=== PATIENT | female | born 1985 | race African-American/Black ===

== ENCOUNTER 2017-11-30 08:58 | Emergency (ER) | payer SELFPAY ==
--- NOTE | 2017-11-30 10:07 | EDPHYS ---
Physician Documentation [facility] Name: Aneta Wang Age: 32 yrs Sex: Female : 1985 Arrival Date: 11/30/2017 Time: 09:01 Bed 19 Private MD: ED Physician Vince Arboleda HPI: 11/30 09:40 This 32 yrs old Black Female presents to ER via Ambulatory with complaints of Sore jr8 Throat, Cough. 09:40 Onset: The symptoms/episode began/occurred acutely, 1 week(s) ago. Severity of jr8 symptoms: At their worst the symptoms were mild, in the emergency department the symptoms are unchanged. Associated signs and symptoms: Pertinent positives: chest pain, cough. The patient has not experienced similar symptoms in the past. The patient has not recently seen a physician. PNP: 09:14 LMP 11/22/2017 iw Historical: - Allergies: 09:14 PENICILLINS; iw - Home Meds: 09:14 None [Active]; iw - PMHx: 09:14 Kidney stones; iw - PSHx: 09:14 Tubal ligation; iw - Immunization history:: Adult Immunizations up to date. - Social history:: Smoking status: Patient/guardian denies using tobacco. ROS: 09:40 Eyes: Negative for injury, pain, redness, and discharge, Neck: Negative for injury, jr8 pain, and swelling, Abdomen/GI: Negative for abdominal pain, nausea, vomiting, diarrhea, and constipation, Back: Negative for injury and pain, MS/Extremity: Negative for injury and deformity, Skin: Negative for injury, rash, and discoloration, Neuro: Negative for headache, weakness, numbness, tingling, and seizure. 09:40 Constitutional: Positive for fever, malaise. 09:40 ENT: Positive for sore throat, Negative for drainage from ear(s), ear pain, nasal discharge, rhinorrhea, sinus congestion, sinus pain, difficulty swallowing, difficulty handling secretions, hoarseness. 09:40 Cardiovascular: Positive for chest pain, with cough, Negative for edema, orthopnea, palpitations, paroxysmal nocturnal dyspnea. 09:40 Respiratory: Positive for cough, Negative for dyspnea on exertion, shortness of breath, sputum production, wheezing. Exam: 09:40 Head/Face: Normocephalic, atraumatic. Eyes: Pupils equal round and reactive to light, jr8 extra-ocular motions intact. Lids and lashes normal. Conjunctiva and sclera are non-icteric and not injected. Cornea within normal limits. Periorbital areas with no swelling, redness, or edema. ENT: Nares patent. No nasal discharge, no septal abnormalities noted. Tympanic membranes are normal and external auditory canals are clear. Oropharynx with mild redness. No swelling, or masses, exudates, or evidence of obstruction, uvula midline. Mucous membranes moist. Neck: Trachea midline, no thyromegaly or masses palpated, and no cervical lymphadenopathy. Supple, full range of motion without nuchal rigidity, or vertebral point tenderness. No Meningismus. Cardiovascular: Regular rate and rhythm with a normal S1 and S2. No gallops, murmurs, or rubs. Normal PMI, no JVD. No pulse deficits. Respiratory: Lungs have equal breath sounds bilaterally, clear to auscultation and percussion. No rales, rhonchi or wheezes noted. No increased work of breathing, no retractions or nasal flaring. Abdomen/GI: Soft, non-tender, with normal bowel sounds. No distension or tympany. No guarding or rebound. No evidence of tenderness throughout. Back: No spinal tenderness. No costovertebral tenderness. Full range of motion. Skin: Warm, dry with normal turgor. Normal color with no rashes, no lesions, and no evidence of cellulitis. MS/ Extremity: Pulses equal, no cyanosis. Neurovascular intact. Full, normal range of motion. Neuro: Awake and alert, GCS 15, oriented to person, place, time, and situation. Cranial nerves II-XII grossly intact. Motor strength 5/5 in all extremities. Sensory grossly intact. Cerebellar exam normal. Normal gait. Vital Signs: 09:08 BP 112 / 80; Pulse 97; Resp 17; Temp 99.5(O); Pulse Ox 98% ; Weight 68.04 kg; Height 5 iw ft. 3 in. (160.02 cm); Pain 8/10; 09:58 BP 112 / 85; Pulse 84; Resp 16; Pulse Ox 100% on R/A; mh5 09:08 Body Mass Index 26.57 (68.04 kg, 160.02 cm) iw MDM: 09:09 Patient medically screened. jr8 10:04 Data reviewed: vital signs, nurses notes, lab test result(s), radiologic studies, plain jr8 films, and as a result, I will discharge patient. Data interpreted: Pulse oximetry: on room air is 100 %. Interpretation: normal. Counseling: I had a detailed discussion with the patient and/or guardian regarding: the historical points, exam findings, and any diagnostic results supporting the discharge/admit diagnosis, lab results, radiology results, the need for outpatient follow up, a family practitioner, to return to the emergency department if symptoms worsen or persist or if there are any questions or concerns that arise at home. 11/30 09:25 Order name: Influenza Screen (a \T\ B); Complete Time: 10: jr8 11/30 09:25 Order name: Strep; Complete Time: : jr8 11/30 09:25 Order name: XRAY Chest (1 view); Complete Time: 16:00 jr8 11/30 10:00 Order name: Throat Culture EDMS Administered Medications: No medications were administered Disposition: 11:15 Co-signature as Attending Physician, Vince Arboleda MD. rn Disposition: 11/30/17 10:06 Discharged to Home. Impression: Acute upper respiratory infection, unspecified. - Condition is Stable. - Discharge Instructions: Upper Respiratory Infection, Adult. - Prescriptions for Prednisone 20 mg Oral Tablet - take 1 tablet by ORAL route once daily for 5 days; 5 tablet. Tessalon Perles 100 mg Oral Capsule - take 1 capsule by ORAL route every 8 hours As needed; 15 capsule. Albuterol Sulfate 90 mcg/actuation - inhale 1-2 puff by INHALATION route every 4-6 hours; 1 Inhaler. - Medication Reconciliation Form, Thank You Letter, Antibiotic Education, Prescription Opioid Use form. - Follow up: Private Physician; When: 1 week; Reason: Recheck today's complaints, Continuance of care, Re-evaluation by your physician. - Problem is new. - Symptoms have improved. Signatures: Dispatcher [employer] Valentin Moyer, WOOL HANKER WOOL HANKER Elizabeth Tee, Vince Serna RN, MD MD rn Roszak, Josh, PA PA jr8
--- NOTE | 2017-11-30 10:07 | ER ---
Nurse's Notes [facility] Name: Aneta Wang Age: 32 yrs Sex: Female : 1985 Arrival Date: 11/30/2017 Time: 09:01 Bed 19 Private MD: Diagnosis: Acute upper respiratory infection, unspecified Presentation: 11/30 09:11 Presenting complaint: Patient states: has had cough, sneezing, sore throat, nasal iw drainage X 2 days, denies fever. Transition of care: patient was not received from another setting of care. Onset of symptoms was November 29, 2017. Care prior to arrival: None. 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 - Social history:: Smoking status: Patient/guardian denies using tobacco. Screenin:33 Abuse screen: Denies threats or abuse. Nutritional screening: No deficits noted. em Tuberculosis screening: No symptoms or risk factors identified. Fall Risk None identified. Assessment: 09:16 General: Appears in no apparent distress. comfortable, Behavior is calm, cooperative, em Denies fever. Pain: Denies pain. Neuro: Level of Consciousness is awake, alert, obeys commands, Oriented to person, place, time, situation. Cardiovascular: Capillary refill < 3 seconds Patient's skin is warm and dry. Respiratory: Reports cough that is non-productive, Airway is patent Respiratory effort is even, unlabored, Respiratory pattern is regular, symmetrical, Breath sounds are clear bilaterally. GI: Abdomen is flat. : No signs and/or symptoms were reported regarding the genitourinary system. EENT: Throat is clear is pink. Derm: Skin is intact, Skin is pink, warm \T\ dry. Musculoskeletal: Range of motion: intact in all extremities. 09:30 Reassessment: Patient appears in no apparent distress at this time. I agree with above iw assessment by Valentin Dominguez LVN. Vital Signs: 09:08 BP 112 / 80; Pulse 97; Resp 17; Temp 99.5(O); Pulse Ox 98% ; Weight 68.04 kg; Height 5 iw ft. 3 in. (160.02 cm); Pain 8/10; 09:58 BP 112 / 85; Pulse 84; Resp 16; Pulse Ox 100% on R/A; mh5 09:08 Body Mass Index 26.57 (68.04 kg, 160.02 cm) ED Course: 09:01 Patient arrived in ED. mr 09:09 Bladimir Cuenca PA is PHCP. jr8 09:09 Vince Arboleda MD is Attending Physician. jr8 09:12 Triage completed. iw 09:14 Arm band placed on. iw 09:16 Valentin Dominguez LVN is Primary Nurse. em 09:33 Patient has correct armband on for positive identification. Bed in low position. Call em light in reach. Side rails up X 1. 09:33 No provider procedures requiring assistance completed. Patient did not have IV access em during this emergency room visit. 09:41 Flu and/or RSV swab sent to lab. Strep swab sent to lab. mh5 09:42 Strep Sent. mh5 09:42 Influenza Screen (a \T\ B) Sent. mh5 09:56 XRAY Chest (1 view) In Process Unspecified. EDMS Administered Medications: No medications were administered Outcome: 10:06 Discharge ordered by . jr8 10:18 Discharged to home ambulatory. em 10:18 Condition: good 10:18 Discharge instructions given to patient, Instructed on discharge instructions, follow up and referral plans. medication usage, Demonstrated understanding of instructions, follow-up care, medications, Prescriptions given X 3. 10:19 Patient left the ED. em Signatures: Dispatcher [employer] EDAZ Edita Dodd DominguezValentin LVN LVN em Elizabeth Malloy RN RN Bladimir Cuenca PA PA jr8 Martinez, Maria [facility] Corrections: (The following items were deleted from the chart) 09:15 09:08 BP 112 / 80; Pulse 97bpm; Resp 17bpm; Pulse Ox 98%; Temp 99.5F Oral; mh5 iw
--- NOTE | 2017-11-30 10:18 | RAD REPORT ---
EXAM DESCRIPTION: [place] Single View11/30/2017 9:55 am CLINICAL HISTORY: Cough COMPARISON: August 2016 FINDINGS: The lungs appear clear of acute infiltrate. The heart is normal size IMPRESSION: No acute abnormalities displayed
[2017-11-30 10:34] VITALS: TEMP 99.5
[2017-11-30 10:35] VITALS: BP 112/85; O2SAT 100
== END 2017-11-30 10:19 | disposition home or self-care (01) ==
LOC: ER 08:58
DX: J06.9 Acute upper respiratory infection, unspecified (principal); Z88.0 Allergy status to penicillin
CPT/HCPCS: 71045; 87070; 87081; 87804; 99283

== ENCOUNTER 2018-05-30 13:15 | Emergency (ER) | payer SELFPAY ==
[2018-05-30 14:12] LABS: Urine Blood 3+ (NEG); Urine Glucose NEGATIVE (NEG); Urine Protein NEGATIVE (NEG); Urine pH 5.5 (5.0-7.0)
[2018-05-30 14:19] LABS: Urine Culture Reflex Order NOT NEEDED
[2018-05-30 14:21] LABS: Urine Bacteria 20-50 /HPF (<20); Urine Mucus 2+ /HPF (NONE SEEN)
[2018-05-30 14:35] LABS: Absolute Lymphocytes (CBC) 2.1 K/uL (0.7-4.9); Absolute Monocytes 0.4 K/uL (0.1-1.3); Absolute Neutrophil 2.7 K/uL (1.8-8.0); Basophils % 0.4 % (0-1.3); Hematocrit 41.2 % (36.0-45.0); MCV 93.4 fL (80-100); RBC Red Blood Cell Count 4.41 M/uL (3.86-4.86)
--- NOTE | 2018-05-30 14:41 | RAD REPORT ---
EXAM DESCRIPTION: CTAbdomen Pelvis W Contrast - 05/30/2018 2:32 pm CLINICAL HISTORY: Abdominal pain. Lower abdominal pain, IV ONLY COMPARISON: Abdomen Pelvis W Contrast dated 12/10/2015 TECHNIQUE: Biphasic CT imaging of the abdomen and pelvis was performed with 100 ml non-ionic IV cont rast. All CT scans are performed using dose optimization technique as appropriate and may include automated exposure control or mA/KV adjustment according to patient size. FINDINGS: The lung bases are clear. The liver, spleen, pancreas, adrenal glands and kidneys are within normal limits. No bowel obstruction, free air, free fluid or abscess. The appendix is normal. No evidence of signi ficant lymphadenopathy. No suspicious bony findings. Mucosal enhancement involving the urinary bladder is present. IMPRESSION: Mucosal enhancement involving the urinary bladder is present, suspicious for cystitis. C orrelation with urinalysis is recommended.
[2018-05-30 14:48] LABS: ALT/SGPT 13 U/L (12-78); AST/SGOT 17 U/L (15-37); Albumin 3.9 g/dL (3.4-5.0); Alkaline Phosphatase 69 U/L (45-117); BUN Blood Urea Nitrogen 14 mg/dL (7-18); Bicarbonate 27 mmol/L (21-32); Bilirubin Direct 0.1 mg/dL (0-0.2); Bilirubin Total 0.4 mg/dL (0.2-1.0); Glucose Level 73 mg/dL (74-106); Lipase 169 U/L (73-393); Potassium 3.6 mmol/L (3.5-5.1); Protein, Total 8.5 g/dL (6.4-8.2); Sodium Level 142 mmol/L (136-145)
[2018-05-30] MEDS ORDERED: KETOROLAC 30 MG/ML INJ ONE (14:52)
--- NOTE | 2018-05-30 14:54 | EDPHYS ---
Physician Documentation [facility] Name: Aneta Wang Age: 33 yrs Sex: Female : 1985 Arrival Date: 05/30/2018 Time: 13:18 Bed 13 Private MD: Karina Rao ED Physician Tone Wilkinson HPI: 05/30 13:48 This 33 yrs old Black Female presents to ER via Ambulatory with complaints of Pain With jmm Urination. 13:48 Onset: The symptoms/episode began/occurred gradually. jmm 13:49 The patient presents with urinary symptoms, dysuria. Onset: The symptoms/episode jmm began/occurred gradually, 3 day(s) ago. Modifying factors: The symptoms are alleviated by nothing, the symptoms are aggravated by nothing. Associated signs and symptoms: Pertinent positives:. 13:49 This is a 33 year old female with a history of chronic uti's that presents to the ED jm with dysuria, hematuria beginning this past Thursday. Patient also complains of left lower quad abdominal pain. Denies fever, vomiting, or diarrhea. . 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 - Social history:: Smoking status: Patient/guardian denies using tobacco. - Ebola Screening: : No symptoms or risks identified at this time. ROS: 13:49 Constitutional: Negative for fever, chills, and weight loss, Cardiovascular: Negative jmm for chest pain, palpitations, and edema, Respiratory: Negative for shortness of breath, cough, wheezing, and pleuritic chest pain. 13:49 Back: Negative for injury and pain, Skin: Negative for injury, rash, and discoloration. 13:49 Abdomen/GI: Positive for abdominal pain. 13:49 All other systems are negative. Exam: 13:49 Head/Face: atraumatic. jmm 13:49 Constitutional: The patient appears in no acute distress, alert, awake. 13:49 Cardiovascular: Rate: normal. 13:49 Respiratory: the patient does not display signs of respiratory distress, Respirations: normal, Breath sounds: are clear throughout. 13:49 Abdomen/GI: Inspection: abdomen appears normal, Bowel sounds: normal, Palpation: soft, mild abdominal tenderness, in the left lower quadrant. 13:49 Back: ROM is normal, CVA tenderness, is absent. 13:49 Musculoskeletal/extremity: ROM: intact in all extremities. 13:49 Skin: Appearance: Color: normal in color. 13:49 Neuro: Orientation: is normal, Mentation: is normal, Memory: is normal. 13:49 Psych: Behavior/mood is pleasant, cooperative. Vital Signs: 13:21 BP 128 / 87; Pulse 86; Resp 16; Temp 98.1; Pulse Ox 100% on R/A; Weight 70.31 kg; hb Height 5 ft. 4 in. (162.56 cm); Pain 9/10; 13:21 Body Mass Index 26.61 (70.31 kg, 162.56 cm) hb MDM: 13:28 Patient medically screened. [facility] 14:53 Data reviewed: vital signs, nurses notes. Counseling: I had a detailed discussion with [facility] the patient and/or guardian regarding: the historical points, exam findings, and any diagnostic results supporting the discharge/admit diagnosis, radiology results, the need for outpatient follow up, to return to the emergency department if symptoms worsen or persist or if there are any questions or concerns that arise at home. 14:53 ED course: CT imaging confirms cystitis. Patient prescribed oral antibiotics with [facility] strict return precautions. Patient understood and agrees with the plan of care. . 05/30 13:43 Order name: Basic Metabolic Panel; Complete Time: 14:50 [facility] 05/30 13:43 Order name: CBC with Diff; Complete Time: 14:43 [facility] 05/30 13:43 Order name: Creatinine for Radiology; Complete Time: 14:50 [facility] 05/30 13:43 Order name: Hepatic Function; Complete Time: 14:50 [facility] 05/30 13:43 Order name: Lipase; Complete Time: 14:50 [facility] 05/30 14:03 Order name: Urine Dipstick--Ancillary (enter results); Complete Time: 14:37 05/30 13:43 Order name: IV Saline Lock; Complete Time: 14:30 [facility] 05/30 13:43 Order name: Labs collected and sent; Complete Time: 14:30 [facility] 05/30 13:43 Order name: CT Abd/Pelvis - W/Contrast; Complete Time: 14:43 [facility] 05/30 14:03 Order name: Urine --Ancillary (enter results); Complete Time: 14:37 eb 05/30 14:04 Order name: Urine Microscopic Only; Complete Time: 14:37 em 05/30 14:04 Order name: Urine Culture em Administered Medications: 14:47 Drug: Ketorolac 30 mg Route: IVP; Site: left antecubital; aj1 Disposition: 18:30 Co-signature as Attending Physician, Tone Wilkinson MD Available for consultation at ps1 all times. . Disposition: 05/30/18 14:54 Discharged to Home. Impression: Cystitis, unspecified with hematuria. - Condition is Stable. - Discharge Instructions: Urinary Tract Infection, Adult. - Prescriptions for Ultram 50 mg Oral Tablet - take 1 tablet by ORAL route every 6 hours As needed; 20 tablet. Macrobid 100 mg Oral Capsule - take 1 capsule by ORAL route every 12 hours for 7 days; 14 capsule. - Medication Reconciliation Form, Thank You Letter, Antibiotic Education, Prescription Opioid Use form. - Follow up: Karina Rao; When: 2 - 3 days; Reason: Recheck today's complaints, Continuance of care, Re-evaluation by your physician. Signatures: Dispatcher [employer] Mary Baig, RN RN aj1 Babak Barger PA PA jmm Baxter, Heather, RN RN hb Singer, Phillip, MD MD ps1 Corrections: (The following items were deleted from the chart) 15:03 14:54 05/30/2018 14:54 Discharged to Home. Impression: Cystitis, unspecified with hb hematuria. Condition is Stable. Forms are Medication Reconciliation Form, Thank You Letter, Antibiotic Education, Prescription Opioid Use. Follow up: Karina Rao; When: 2 - 3 days; Reason: Recheck today's complaints, Continuance of care, Re-evaluation by your physician. [facility]
--- NOTE | 2018-05-30 14:54 | ER ---
Nurse's Notes [facility] Name: Aneta Wang Age: 33 yrs Sex: Female : 1985 Arrival Date: 05/30/2018 Time: 13:18 Bed 13 Private MD: Karina Rao Diagnosis: Cystitis, unspecified with hematuria Presentation: 05/30 13:21 Presenting complaint: Patient states: Burning with urination 3 days, blood in urine hb today. Denies fever. Transition of care: patient was not received from another setting of care. Onset of symptoms was May 30, 2018. Risk Assessment: Do you want to hurt yourself or someone else? Patient reports no desire to harm self or others. Care prior to arrival: None. 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 - Social history:: Smoking status: Patient/guardian denies using tobacco. - Ebola Screening: : No symptoms or risks identified at this time. Screenin:00 Abuse screen: Denies threats or abuse. Denies injuries from another. Nutritional aj1 screening: No deficits noted. Tuberculosis screening: No symptoms or risk factors identified. Assessment: 14:00 General: Appears in no apparent distress. uncomfortable, Behavior is calm, cooperative, aj1 appropriate for age. Neuro: Level of Consciousness is awake, alert, obeys commands, Oriented to person, place, time, situation. Cardiovascular: Patient's skin is warm and dry. Respiratory: Airway is patent Respiratory effort is even, unlabored, Respiratory pattern is regular, symmetrical. GI: No signs and/or symptoms were reported involving the gastrointestinal system. : Reports burning with urination, urinary frequency, blood in urine. EENT: No signs and/or symptoms were reported regarding the EENT system. Derm: No signs and/or symptoms reported regarding the dermatologic system. Skin is pink, warm \T\ dry. normal. Musculoskeletal: No signs and/or symptoms reported regarding the musculoskeletal system. Circulation, motion, and sensation intact. Vital Signs: 13:21 BP 128 / 87; Pulse 86; Resp 16; Temp 98.1; Pulse Ox 100% on R/A; Weight 70.31 kg; hb Height 5 ft. 4 in. (162.56 cm); Pain 9/10; 13:21 Body Mass Index 26.61 (70.31 kg, 162.56 cm) hb ED Course: 13:18 Patient arrived in ED. as 13:18 Babak Barger PA is PHCP. jmm 13:18 Tone Wilkinson MD is Attending Physician. jmm 13:18 Karina Rao is Private Physician. as 13:21 Triage completed. hb 13:22 Arm band placed on left wrist. hb 13:34 Mary Thomas, RN is Primary Nurse. aj1 14:00 Patient has correct armband on for positive identification. Bed in low position. Call aj1 light in reach. Side rails up X 1. 14:00 No provider procedures requiring assistance completed. Inserted saline lock: 22 gauge aj1 in right antecubital area, using aseptic technique. Blood collected. 14:07 Urine collected: clean catch specimen, clear, danni colored, Amount Voided: 70mL. jp3 14:08 Urine Culture Sent. jp3 14:08 Urine Microscopic Only Sent. jp3 14:08 Urine --Ancillary (enter results) Sent. jp3 14:08 Urine Dipstick--Ancillary (enter results) Sent. jp3 14:29 CT completed. Patient moved to CT via wheelchair. Patient moved back from CT. cw1 14:32 CT Abd/Pelvis - W/Contrast In Process Unspecified. EDMS 14:53 Karina Rao is Referral Physician. jmm 15:03 IV discontinued, intact, bleeding controlled, No redness/swelling at site. Pressure hb dressing applied. Administered Medications: 14:47 Drug: Ketorolac 30 mg Route: IVP; Site: left antecubital; aj1 Outcome: 14:54 Discharge ordered by . jmm 15:03 Discharged to home ambulatory, with family. hb 15:03 Condition: stable 15:03 Discharge instructions given to patient, Instructed on discharge instructions, follow up and referral plans. medication usage, Demonstrated understanding of instructions, follow-up care, medications, Prescriptions given X 2. 15:03 Patient left the ED. Addendum: 06/02/2018 15:48 Addendum: Culture Results: Positive urine culture. No further action required. Bacteria d m5 sensitive to prescribed antibiotic. Signatures: Dispatcher [employer] EDMary Aguirre, RN RN aj1 Randa Bae RN RN dm5 Babak Barger PA PA jmm Martinez, Amelia as Woodley, Crystal 1 Ashley Adair, LEX RN Luther Garcia jp3
[2018-05-30 15:08] VITALS: BP 128/87; TEMP 98.1; O2SAT 100
== END 2018-05-30 15:03 | disposition home or self-care (01) ==
LOC: ER 13:15
DX: N30.91 Cystitis, unspecified with hematuria (principal); Z88.0 Allergy status to penicillin
CPT/HCPCS: 36415; 74177; 80048; 80076; 81003; 81015; 81025; 83690; 85025; 87077; 87086; 87088; 87186; 96374; 99284; Q9967

== ENCOUNTER 2018-06-16 07:21 | Emergency (ER) | payer SELFPAY ==
[2018-06-16 07:53] LABS: Urine Blood 2+ (NEG); Urine Glucose NEGATIVE (NEG); Urine Protein NEGATIVE (NEG); Urine pH 5.5 (5.0-7.0)
[2018-06-16 08:01] LABS: Urine Bacteria >50 /HPF (<20)
[2018-06-16 08:03] LABS: Urine Culture Reflex Order REFLEXED; Urine Mucus 1+ /HPF (NONE SEEN)
--- NOTE | 2018-06-16 08:07 | EDPHYS ---
Physician Documentation [facility] Name: Aneta Wang Age: 33 yrs Sex: Female : 1985 Arrival Date: 06/16/2018 Time: 07:23 Bed 13 Private MD: ED Physician Ish Ely HPI: 06/16 07:38 This 33 yrs old Black Female presents to ER via Ambulatory with complaints of Urinary kb Problem. 07:38 The patient presents with urinary symptoms, dysuria, frequency. Onset: The kb symptoms/episode began/occurred yesterday. Modifying factors: The symptoms are alleviated by nothing, the symptoms are aggravated by urinating. Associated signs and symptoms: Pertinent positives: dysuria, urinary frequency. Severity of symptoms: At their worst the symptoms were moderate, in the emergency department the symptoms are unchanged. The patient has not experienced similar symptoms in the past. The patient has not recently seen a physician. Pt states "I have a UTI. I have abd pain and burning when I pee. That's normal for me when I get UTIs.". 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 - Social history:: Smoking status: Patient/guardian denies using tobacco. - Ebola Screening: : No symptoms or risks identified at this time. ROS: 07:36 Constitutional: Negative for fever, chills, and weight loss, Cardiovascular: Negative kb for chest pain, palpitations, and edema, Respiratory: Negative for shortness of breath, cough, wheezing, and pleuritic chest pain, Abdomen/GI: Negative for abdominal pain, nausea, vomiting, diarrhea, and constipation, MS/Extremity: Negative for injury and deformity, Skin: Negative for injury, rash, and discoloration, Neuro: Negative for headache, weakness, numbness, tingling, and seizure. 07:36 : Positive for urinary symptoms, urinary frequency, burning with urination. Exam: 07:37 Constitutional: This is a well developed, well nourished patient who is awake, alert, kb and in no acute distress. Head/Face: Normocephalic, atraumatic. Neck: Trachea midline, no thyromegaly or masses palpated, and no cervical lymphadenopathy. Supple, full range of motion without nuchal rigidity, or vertebral point tenderness. No Meningismus. Chest/axilla: Normal chest wall appearance and motion. Nontender with no deformity. No lesions are appreciated. Cardiovascular: Regular rate and rhythm with a normal S1 and S2. No gallops, murmurs, or rubs. Normal PMI, no JVD. No pulse deficits. Respiratory: Lungs have equal breath sounds bilaterally, clear to auscultation and percussion. No rales, rhonchi or wheezes noted. No increased work of breathing, no retractions or nasal flaring. Abdomen/GI: Soft, non-tender, with normal bowel sounds. No distension or tympany. No guarding or rebound. No evidence of tenderness throughout. Skin: Warm, dry with normal turgor. Normal color with no rashes, no lesions, and no evidence of cellulitis. MS/ Extremity: Pulses equal, no cyanosis. Neurovascular intact. Full, normal range of motion. Neuro: Awake and alert, GCS 15, oriented to person, place, time, and situation. Cranial nerves II-XII grossly intact. Motor strength 5/5 in all extremities. Sensory grossly intact. Cerebellar exam normal. Normal gait. Vital Signs: 07:29 BP 116 / 78; Pulse 84; Resp 16; Temp 97.8; Pulse Ox 98% on R/A; Pain 8/10; hb MDM: 07:31 Patient medically screened. kb 07:37 Data reviewed: vital signs, nurses notes. Data interpreted: Pulse oximetry: on room air kb is 98 %. Interpretation: normal. 08:06 Counseling: I had a detailed discussion with the patient and/or guardian regarding: the kb historical points, exam findings, and any diagnostic results supporting the discharge/admit diagnosis, lab results, the need for outpatient follow up, a urologist, to return to the emergency department if symptoms worsen or persist or if there are any questions or concerns that arise at home. 06/16 07:31 Order name: Urine Microscopic Only; Complete Time: 08:05 kb 06/16 07:39 Order name: Urine Dipstick--Ancillary (enter results); Complete Time: 08:05 hb 06/16 07:31 Order name: Urine Test (obtain specimen); Complete Time: 07:36 kb 06/16 07:39 Order name: Urine --Ancillary (enter results) 06/16 08:06 Order name: Urine Culture [facility] 06/16 07:31 Order name: Urine Dipstick-Ancillary (obtain specimen); Complete Time: 07:36 kb Administered Medications: 08:10 Drug: Macrobid 100 mg Route: PO; la1 08:11 Follow up: Response: Medication administered at discharge. la1 Disposition: 16:16 Co-signature as Attending Physician, Ish Ely MD I agree with the assessment and kdr plan of care. Disposition: 06/16/18 08:07 Discharged to Home. Impression: Urinary tract infection, site not specified. - Condition is Stable. - Discharge Instructions: Urinary Tract Infection, Adult, [id number]. - Prescriptions for Macrobid 100 mg Oral Capsule - take 1 capsule by ORAL route every 12 hours for 10 days; 20 capsule. - Medication Reconciliation Form, Thank You Letter, Antibiotic Education, Prescription Opioid Use form. - Follow up: Emergency Department; When: As needed; Reason: Worsening of condition. Follow up: Corbin Hannah MD; When: 2 - 3 days; Reason: Recheck today's complaints. Signatures: Dispatcher [employer] EDOH Nevaeh Cuenca, STRAINER TENDER-C STRAINER TENDER-Ckb Ish Ely MD MD [facility] Wolf Sal RN RN la1 Ashley Adair, LEX RN Corrections: (The following items were deleted from the chart) 08:11 08:07 06/16/2018 08:07 Discharged to Home. Impression: Urinary tract infection, site la1 not specified. Condition is Stable. Forms are Medication Reconciliation Form, Thank You Letter, Antibiotic Education, Prescription Opioid Use. Follow up: Emergency Department; When: As needed; Reason: Worsening of condition. Follow up: Corbin Hannah; When: 2 - 3 days; Reason: Recheck today's complaints. kb
--- NOTE | 2018-06-16 08:07 | ER ---
Nurse's Notes [facility] Name: Aneta Wang Age: 33 yrs Sex: Female : 1985 Arrival Date: 06/16/2018 Time: 07:23 Bed 13 Private MD: Diagnosis: Urinary tract infection, site not specified Presentation: 06/16 07:29 Presenting complaint: Patient states: Lower abdominal pain, urinary frequency, and hb burning with urination x 2 days. Denies fever. Recently completed abx for same s/s. Transition of care: patient was not received from another setting of care. Onset of symptoms was June 15, 2018. Risk Assessment: Do you want to hurt yourself or someone else? Patient reports no desire to harm self or others. Initial Sepsis Screen: Does the patient meet any 2 criteria? No. Patient's initial sepsis screen is negative. Does the patient have a suspected source of infection? No. Patient's initial sepsis screen is negative. Care prior to arrival: None. 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 - Social history:: Smoking status: Patient/guardian denies using tobacco. - Ebola Screening: : No symptoms or risks identified at this time. Screenin:35 Abuse screen: Denies threats or abuse. Nutritional screening: No deficits noted. la1 Tuberculosis screening: No symptoms or risk factors identified. Fall Risk None identified. Assessment: 07:35 General: Appears in no apparent distress. Behavior is calm, cooperative. Pain: Denies la1 pain. Neuro: Level of Consciousness is awake, alert, obeys commands, Oriented to person, place, time, situation. Cardiovascular: Capillary refill < 3 seconds Patient's skin is warm and dry. Respiratory: Airway is patent Respiratory effort is even, unlabored, Respiratory pattern is regular, symmetrical. GI: No signs and/or symptoms were reported involving the gastrointestinal system. : Reports burning with urination. Vital Signs: 07:29 BP 116 / 78; Pulse 84; Resp 16; Temp 97.8; Pulse Ox 98% on R/A; Pain 8/10; hb ED Course: 07:23 Patient arrived in ED. as 07:31 Triage completed. hb 07:31 eNvaeh Cuenca F[facility]-C [facility] kb 07:31 Ish Ely MD is Attending Physician. kb 07:31 Arm band placed on right wrist. hb 07:33 Wolf Sal, RN is Primary Nurse. la1 07:35 Call light in reach. Side rails up X 1. la1 07:39 Urine Microscopic Only Sent. hb 08:07 Corbin Hannah MD is Referral Physician. kb 08:11 No provider procedures requiring assistance completed. Patient did not have IV access la1 during this emergency room visit. Administered Medications: 08:10 Drug: Macrobid 100 mg Route: PO; la1 08:11 Follow up: Response: Medication administered at discharge. la1 Outcome: 08:07 Discharge ordered by . kb 08:11 Discharged to home ambulatory. la1 08:11 Condition: stable 08:11 Condition: good 08:11 Discharge instructions given to patient, Instructed on discharge instructions, follow up and referral plans. medication usage, Demonstrated understanding of instructions, follow-up care, medications, Prescriptions given X 1. 08:11 Patient left the ED. la1 Addendum: 06/18/2018 07:23 Addendum: Culture Results: Positive urine culture. No further action required. Bacteria s s sensitive to prescribed antibiotic. Signatures: Nevaeh Cuenca FNP-C FNP-Riaan López Shelby, RN RN Wolf Sal RN RN la1 Ashley Adair RN RN
[2018-06-16] MEDS ORDERED: NITROFURAN MACRO 100 MG CAP PO ONE (08:14)
[2018-06-16 08:16] VITALS: BP 116/78; TEMP 97.8; O2SAT 98
== END 2018-06-16 08:11 | disposition home or self-care (01) ==
LOC: ER 07:21
DX: N39.0 Urinary tract infection, site not specified (principal); Z88.0 Allergy status to penicillin
CPT/HCPCS: 81003; 81015; 81025; 87077; 87086; 87088; 87186; 99283

== ENCOUNTER 2019-02-08 15:28 | Emergency (ER) | payer SELFPAY ==
--- OUTSIDE RECORDS SUMMARY | 2019-02-08 15:31 | XMS REPORT ---
:1985 [facility] Address [address] [place] [address] Dr. Kay [address] [place] [id number] Care Team Providers Name Role Phone Unavailable Unavailable Unavailable Problems This patient has no known problems. Allergies, Adverse Reactions, Alerts This patient has no known allergies or adverse reactions. Medications This patient has no known medications.
--- NOTE | 2019-02-08 17:00 | RAD REPORT ---
EXAM DESCRIPTION: RAD - Hand Right 3 View - 02/08/2019 4:51 pm CLINICAL HISTORY: PAIN COMPARISON: No comparisons FINDINGS: No bone or joint abnormality seen. No radiopaque foreign body appreciated.
[2019-02-08] MEDS ORDERED: TETANUS & DIPHTHERIA TOX,ADULT 0.5 ML VIAL ONE (17:02)
[2019-02-08] MEDS ORDERED: IBUPROFEN 400 MG TAB ONE (17:02)
--- NOTE | 2019-02-08 17:13 | ER ---
[facility] Name: Aneta Wang Age: 34 yrs Sex: Female : 1985 Arrival Date: 02/08/2019 Time: 15:31 Bed 25 Private MD: Diagnosis: Laceration without foreign body of right ring finger without damage to nail Presentation: 02/08 15:35 Presenting complaint: Patient states: last Thursday, i poked some endy of wire and it hj started to swell; it looks like its draining pus; denies fever and chills;. Transition of care: patient was not received from another setting of care. Onset of symptoms was February 08, 2019. Risk Assessment: Do you want to hurt yourself or someone else? Patient reports no desire to harm self or others. Initial Sepsis Screen: Does the patient meet any 2 criteria? No. Patient's initial sepsis screen is negative. Does the patient have a suspected source of infection? No. Patient's initial sepsis screen is negative. Care prior to arrival: None. 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 - Social history:: Smoking status: unknown. - Ebola Screening: : No symptoms or risks identified at this time. Screenin:37 Abuse screen: Denies threats or abuse. Denies injuries from another. Nutritional mg2 screening: No deficits noted. Tuberculosis screening: No symptoms or risk factors identified. Fall Risk None identified. Assessment: 16:35 General: Appears in no apparent distress. comfortable, Behavior is calm, cooperative. mg2 Pain: Complains of pain in right hand. Neuro: Level of Consciousness is awake, alert, obeys commands, Oriented to person, place, time, situation. Cardiovascular: Capillary refill < 3 seconds Patient's skin is warm and dry. Respiratory: Airway is patent Respiratory effort is even, unlabored, Respiratory pattern is regular, symmetrical. GI: No signs and/or symptoms were reported involving the gastrointestinal system. : No signs and/or symptoms were reported regarding the genitourinary system. EENT: No signs and/or symptoms were reported regarding the EENT system. Derm: Skin is intact, is healthy with good turgor, Skin is pink, warm \T\ dry. normal. Musculoskeletal: Circulation, motion, and sensation intact. Capillary refill < 3 seconds. 17:22 Reassessment: Patient appears in no apparent distress at this time. Patient states mg2 feeling better. Vital Signs: 15:37 BP 114 / 80; Pulse 83; Resp 18; Temp 98.8(O); Pulse Ox 99% on R/A; Weight 74.84 kg; hj Height 5 ft. 4 in. (162.56 cm); Pain 9/10; 17:24 BP 115 / 78; Pulse 80; Resp 18; Temp 98; Pulse Ox 100% on R/A; Pain 0/10; mg2 15:37 Body Mass Index 28.32 (74.84 kg, 162.56 cm) ED Course: 15:31 Patient arrived in ED. mr 15:33 Lorenzo Francisco PA is PHCP. cp 15:33 Ish Ely MD is Attending Physician. cp 15:36 Triage completed. hj 15:37 Arm band placed on left wrist. hj 15:46 Moses Lubin, LEX is Primary Nurse. mg2 16:38 No provider procedures requiring assistance completed. Patient did not have IV access mg2 during this emergency room visit. 16:52 XRAY Hand RIGHT 3 View In Process Unspecified. EDMS 17:24 Patient has correct armband on for positive identification. mg2 Administered Medications: 17:03 Drug: Tetanus-Diphtheria Toxoid Adult 0.5 ml {Endocrinologist: [employer]. Exp: mg2 11/13/2020. Lot #: [id number]. } Route: IM; Site: left deltoid; 17:25 Follow up: Response: No adverse reaction mg2 17:03 Drug: Ibuprofen 800 mg Route: PO; mg2 17:25 Follow up: Response: No adverse reaction; Marked relief of symptoms mg2 Outcome: 17:12 Discharge ordered by . cp 17:25 Discharged to home ambulatory. mg2 17:25 Condition: stable 17:25 Discharge instructions given to patient, Instructed on discharge instructions, follow up and referral plans. medication usage, Demonstrated understanding of instructions, follow-up care, medications, Prescriptions given X 2. 17:25 Patient left the ED. mg2 Signatures: Dispatcher [employer] JARENLucy Boo LeonidJoshua, RN RN hj Lorenzo Francisco PA PA cp Gardose, Michele, RN RN mg2 Corrections: (The following items were deleted from the chart) 15:40 15:37 Pulse 83bpm; Resp 18bpm; Pulse Ox 99% RA; Temp 98.8F Oral; 74.84 kg; Height 5 ft. hj 4 in.; BMI: 28.3; Pain 9/10; hj
--- NOTE | 2019-02-08 17:13 | EDPHYS ---
Physician Documentation [facility] Name: Aneta Wang Age: 34 yrs Sex: Female : 1985 Arrival Date: 02/08/2019 Time: 15:31 Bed 25 Private MD: ED Physician Ish Ely HPI: 02/08 16:35 This 34 yrs old Black Female presents to ER via Ambulatory with complaints of Hand cp Swelling. 16:35 The patient or guardian reports pain, swelling, tenderness. The complaints affect the cp dorsal aspect middle phalanx right fourth finger. 16:35 Context: resulted from superficial laceration that occurred from piece of metal while cp working in yard. Onset: The symptoms/episode began/occurred 4 day(s) ago. Associated signs and symptoms: Pertinent negatives: decreased sensation distally, fever, numbness distally. 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 - Social history:: Smoking status: unknown. - Ebola Screening: : No symptoms or risks identified at this time. ROS: 16:40 MS/extremity: Positive for pain, swelling, tenderness, of the dorsal aspect middle cp phalanx right fourth finger. 16:40 Constitutional: Negative for body aches, chills, fever. cp 16:40 All other systems are negative. Exam: 16:47 Constitutional: The patient appears in no acute distress, alert, awake, non-toxic, well cp developed, well nourished. 16:47 Musculoskeletal/extremity: Extremities: grossly normal except: noted in the dorsum, cp middle phalanx right fourth finger: swelling, tenderness, superficial laceration, There is no evidence of abscess, ROM: full active range of motion, in the right fourth finger, Perfusion: the extremity is normally perfused throughout, Sensation intact. Tendon exam: specific tendon testing normal through active and passive range of motion Vital Signs: 15:37 BP 114 / 80; Pulse 83; Resp 18; Temp 98.8(O); Pulse Ox 99% on R/A; Weight 74.84 kg; hj Height 5 ft. 4 in. (162.56 cm); Pain 9/10; 17:24 BP 115 / 78; Pulse 80; Resp 18; Temp 98; Pulse Ox 100% on R/A; Pain 0/10; mg2 15:37 Body Mass Index 28.32 (74.84 kg, 162.56 cm) hj MDM: 15:42 Patient medically screened. cp 16:45 Differential diagnosis: open fracture, closed fracture, abscess, retained foreign body, cp cellulitis. 17:11 Data reviewed: vital signs, nurses notes, radiologic studies, plain films, and as a cp result, I will discharge patient. 17:11 Test interpretation: by ED physician or midlevel provider: xrays of right hand negative cp for fracture or foreign body. Counseling: I had a detailed discussion with the patient and/or guardian regarding: the historical points, exam findings, and any diagnostic results supporting the discharge/admit diagnosis, radiology results, to return to the emergency department if symptoms worsen or persist or if there are any questions or concerns that arise at home. Response to treatment: the patient's symptoms have mildly improved after treatment, and as a result, I will discharge patient. 02/08 16:34 Order name: XRAY Hand RIGHT 3 View cp Administered Medications: 17:03 Drug: Tetanus-Diphtheria Toxoid Adult 0.5 ml {Otolaryngology Rep: [employer]. Exp: mg2 11/13/2020. Lot #: [id number]. } Route: IM; Site: left deltoid; 17:25 Follow up: Response: No adverse reaction mg2 17:03 Drug: Ibuprofen 800 mg Route: PO; mg2 17:25 Follow up: Response: No adverse reaction; Marked relief of symptoms mg2 Disposition: 17:30 Chart complete. cp 02/09 07:51 Co-signature as Attending Physician, Ish Ely MD I agree with the assessment and kdr plan of care. Disposition: 02/08/19 17:12 Discharged to Home. Impression: Laceration without foreign body of right ring finger without damage to nail. - Condition is Stable. - Discharge Instructions: Nonsutured Laceration Care. - Prescriptions for Ibuprofen 800 mg Oral Tablet - take 1 tablet by ORAL route every 8 hours As needed take with food; 30 tablet. Doxycycline Hyclate 100 mg Oral Tablet - take 1 tablet by ORAL route every 12 hours; 20 tablet. - Medication Reconciliation Form, Thank You Letter, Antibiotic Education, Prescription Opioid Use form. - Follow up: Emergency Department; When: As needed; Reason: Worsening of condition. - Problem is new. - Symptoms have improved. Signatures: Dispatcher [employer] EDMS Ish Ely MD MD kdr Joshua Jaquez RN RN hj Lorenzo Francisco PA PA cp Gardose, Michele RN RN mg2 Corrections: (The following items were deleted from the chart) 02/08 17:25 17:12 02/08/2019 17:12 Discharged to Home. Impression: Laceration without foreign body mg2 of right ring finger without damage to nail. Condition is Stable. Forms are Medication Reconciliation Form, Thank You Letter, Antibiotic Education, Prescription Opioid Use. Follow up: Emergency Department; When: As needed; Reason: Worsening of condition. Problem is new. Symptoms have improved. cp
[2019-02-08 18:00] VITALS: BP 115/78; TEMP 98; O2SAT 100
== END 2019-02-08 17:25 | disposition home or self-care (01) ==
LOC: ER 15:28
DX: S61.214A Laceration without foreign body of right ring finger without damage to nail, initial encounter (principal); W45.8XXA Other foreign body or object entering through skin, initial encounter; Y93.H9 Activity, other involving exterior property and land maintenance, building and construction; Z88.0 Allergy status to penicillin; Z23 Encounter for immunization
CPT/HCPCS: 90471; 90714; 99283

== ENCOUNTER 2019-02-23 08:52 | Emergency (ER) | payer SELFPAY ==
--- OUTSIDE RECORDS SUMMARY | 2019-02-23 08:55 | XMS REPORT ---
:1985 [facility] Address [address] [place] [address] Dr. Kay [address] [place] [id number] Care Team Providers Name Role Phone Unavailable Unavailable Unavailable Problems This patient has no known problems. Allergies, Adverse Reactions, Alerts This patient has no known allergies or adverse reactions. Medications This patient has no known medications.
[2019-02-23] MEDS ORDERED: METOCLOPRAMIDE 10 MG/2mL INJ ONE (09:48)
[2019-02-23] MEDS ORDERED: DIPHENHYDRAMINE 50 MG/ML VIAL ONE (09:48)
[2019-02-23] MEDS ORDERED: NA CHLORIDE 0.9% 1,000 ML ONE (09:48)
[2019-02-23 09:50] LABS: Absolute Lymphocytes (CBC) 1.3 K/uL (0.7-4.9); Basophils % 0.4 % (0-1.3); Eosinophils % 2.5 % (0-4.4); Hematocrit 41.8 % (36.0-45.0); Lymphocytes % 27.3 % (15.3-44.8); MPV 9.7 fL (7.6-11.3); Monocytes % 6.2 % (3.3-12.3); RBC Red Blood Cell Count 4.44 M/uL (3.86-4.86)
[2019-02-23 10:08] LABS: BUN Blood Urea Nitrogen 12 mg/dL (7-18); Bicarbonate 28 mmol/L (21-32); Glucose Level 77 mg/dL (74-106); Potassium 3.6 mmol/L (3.5-5.1); Sodium Level 143 mmol/L (136-145)
[2019-02-23 10:20] LABS: Urine Blood 2+ (NEG); Urine Glucose NEGATIVE (NEG); Urine Protein NEGATIVE (NEG); Urine Specific Gravity 1.025 (1.005-1.030); Urine pH 5.5 (5.0-7.0)
--- NOTE | 2019-02-23 10:27 | ER ---
Nurse's Notes [facility] Name: Aneta Wang Age: 34 yrs Sex: Female : 1985 Arrival Date: 02/23/2019 Time: 08:54 Bed 15 Private MD: Diagnosis: Migraine;Malaise and fatigue Presentation: 02/23 08:59 Presenting complaint: Patient states: for the past 2 days i feel fatigued, yesterday i hj just laid down in my bed all day not normal with me and at one point i had a nose bleed, my head is hurting too; denies fever chills, denies N/V; reports sore throat;. Transition of care: patient was not received from another setting of care. Onset of symptoms was February 23, 2019. Risk Assessment: Do you want to hurt yourself or someone else? Patient reports no desire to harm self or others. Initial Sepsis Screen: Does the patient meet any 2 criteria? No. Patient's initial sepsis screen is negative. Does the patient have a suspected source of infection? No. Patient's initial sepsis screen is negative. Care prior to arrival: None. 08:59 Method Of Arrival: Ambulatory 08:59 Acuity: TAMMY 3 hj Triage Assessment: 09:03 Headache History: Denies prior headaches. General: Appears in no apparent distress. hj uncomfortable, Behavior is calm, cooperative, appropriate for age. Pain: Complains of pain in head Pain Pain began 2-3 days ago. Also complains of constipation. Neuro: Level of Consciousness is awake, alert, obeys commands, Oriented to person, place, time, situation, Appropriate for age. TIRE MOUNTER: 09:04 LMP N/A - control method Historical: - Allergies: 09:02 PENICILLINS; hj - Home Meds: 09:02 None [Active]; hj - PMHx: 09:02 gestational diabetes; Kidney stones; hj - PSHx: 09:02 Tubal ligation; hj - Immunization history:: Adult Immunizations up to date. - Social history:: Smoking status: Patient/guardian denies using tobacco, Patient/guardian denies using alcohol. - Ebola Screening: : Patient negative for fever greater than or equal to 101.5 degrees Fahrenheit, and additional compatible Ebola Virus Disease symptoms Patient denies exposure to infectious person Patient denies travel to an Ebola-affected area in the 21 days before illness onset. Screenin:02 Abuse screen: Denies threats or abuse. Denies injuries from another. Nutritional hj screening: No deficits noted. Tuberculosis screening: No symptoms or risk factors identified. Fall Risk None identified. Assessment: 09:05 General: Appears in no apparent distress. uncomfortable, Behavior is calm, cooperative, hj appropriate for age. Pain: Complains of pain in head. Neuro: Level of Consciousness is awake, alert, obeys commands, Oriented to person, place, time, situation, Appropriate for age. Cardiovascular: Capillary refill < 3 seconds Patient's skin is warm and dry. Respiratory: Airway is patent Respiratory effort is even, unlabored, Respiratory pattern is regular, symmetrical. GI: No signs and/or symptoms were reported involving the gastrointestinal system. : No signs and/or symptoms were reported regarding the genitourinary system. EENT: Reports pain in throat. Derm: No signs and/or symptoms reported regarding the dermatologic system. Musculoskeletal: No signs and/or symptoms reported regarding the musculoskeletal system. 10:35 Reassessment: for D/C; fluids still running;. Vital Signs: 09:04 BP 118 / 77; Pulse 84; Resp 18; Temp 99.1(O); Pulse Ox 99% on R/A; Weight 73.94 kg; hj Height 5 ft. 4 in. (162.56 cm); 10:36 BP 115 / 75; Pulse 75; Resp 18; Pulse Ox 100% on R/A; hj 09:04 Body Mass Index 27.98 (73.94 kg, 162.56 cm) ED Course: 08:54 Patient arrived in ED. ds1 08:55 Joshua Jaquez, LEX is Primary Nurse. hj 09:01 Triage completed. hj 09:02 Arm band placed on right wrist. hj 09:04 Bladimir Cuenca PA is PHCP. jr8 09:04 Vince Arboleda MD is Attending Physician. jr8 09:05 Patient has correct armband on for positive identification. Bed in low position. Call light in reach. Side rails up X 1. 09:30 Initial lab(s) drawn, by me, sent to lab. Inserted saline lock: 24 gauge in right hand, using aseptic technique. Blood collected. 10:42 No provider procedures requiring assistance completed. IV discontinued, intact, hj bleeding controlled, No redness/swelling at site. Pressure dressing applied. Administered Medications: 09:30 Drug: NS 0.9% 1000 ml Route: IV; Rate: 1000 ml; Site: right hand; hj 10:25 Follow up: IV Status: Completed infusion hj 09:30 Drug: Reglan 10 mg Route: IVP; Site: right hand; hj 09:59 Follow up: Response: No adverse reaction hj 09:30 Drug: Benadryl 25 mg Route: IVP; Site: right hand; hj 09:59 Follow up: Response: No adverse reaction Outcome: 10:25 Discharge ordered by . jocelin 10:42 Discharged to home ambulatory. 10:42 Condition: stable 10:42 Discharge instructions given to patient, Instructed on discharge instructions, follow up and referral plans. Demonstrated understanding of instructions, follow-up care. 10:43 Patient left the ED. Signatures: Kristyn Aly ds1 Bladimir Cuenca PA PA jr8 Joshua Jaquez RN RN
--- NOTE | 2019-02-23 10:27 | EDPHYS ---
Physician Documentation [facility] Name: Aneta Wang Age: 34 yrs Sex: Female : 1985 Arrival Date: 02/23/2019 Time: 08:54 Bed 15 Private MD: ED Physician Vince Arboleda HPI: 02/23 09:57 This 34 yrs old Black Female presents to ER via Ambulatory with complaints of Nose jr8 Bleed, Headache, Fatigue. 09:57 The patient presents with a nose bleed, and the bleeding resolved prior to arrival, jr8 intermittently. Onset: The symptoms/episode began/occurred 2 day(s) ago. Associated signs and symptoms: Pertinent positives: headache, fatigue, constipation, Pertinent negatives: chest pain, cough, fever. The patient has not experienced similar symptoms in the past. The patient has not recently seen a physician. reports headache, fatigue, and constipation that started 2 days ago with intermittent nosebleeds. . PATHOLOGY MANAGER: 09:04 LMP N/A - control method hj Historical: - Allergies: 09:02 PENICILLINS; hj - Home Meds: 09:02 None [Active]; hj - PMHx: 09:02 gestational diabetes; Kidney stones; hj - PSHx: 09:02 Tubal ligation; hj - Immunization history:: Adult Immunizations up to date. - Social history:: Smoking status: Patient/guardian denies using tobacco, Patient/guardian denies using alcohol. - Ebola Screening: : Patient negative for fever greater than or equal to 101.5 degrees Fahrenheit, and additional compatible Ebola Virus Disease symptoms Patient denies exposure to infectious person Patient denies travel to an Ebola-affected area in the 21 days before illness onset. ROS: 09:57 Neck: Negative for injury, pain, and swelling, Cardiovascular: Negative for chest pain, jr8 palpitations, and edema, Respiratory: Negative for shortness of breath, cough, wheezing, and pleuritic chest pain, Back: Negative for injury and pain, MS/Extremity: Negative for injury and deformity, Skin: Negative for injury, rash, and discoloration. 09:57 Constitutional: Positive for fatigue, Negative for chills, fever. 09:57 Eyes: Positive for redness, Negative for blurry vision, discharge. 09:57 ENT: Positive for nose bleed, Negative for injury or acute deformity, ear pain, hearing loss. 09:57 Abdomen/GI: Positive for constipation, Negative for abdominal pain, nausea and vomiting, rectal pain, rectal bleeding. 09:57 Neuro: Positive for headache, Negative for altered mental status, dizziness, numbness, speech changes, visual changes. Exam: 09:57 Constitutional: This is a well developed, well nourished patient who is awake, alert, jr8 and in no acute distress. Head/Face: Normocephalic, atraumatic. ENT: Nares patent. No nasal discharge, no septal abnormalities noted. Tympanic membranes are normal and external auditory canals are clear. Oropharynx with no redness, swelling, or masses, exudates, or evidence of obstruction, uvula midline. Mucous membranes moist. Neck: Trachea midline, no thyromegaly or masses palpated, and no cervical lymphadenopathy. Supple, full range of motion without nuchal rigidity, or vertebral point tenderness. No Meningismus. Chest/axilla: Normal chest wall appearance and motion. Nontender with no deformity. No lesions are appreciated. Cardiovascular: Regular rate and rhythm with a normal S1 and S2. No gallops, murmurs, or rubs. Normal PMI, no JVD. No pulse deficits. Respiratory: Lungs have equal breath sounds bilaterally, clear to auscultation and percussion. No rales, rhonchi or wheezes noted. No increased work of breathing, no retractions or nasal flaring. Abdomen/GI: Soft, non-tender, with normal bowel sounds. No distension or tympany. No guarding or rebound. No evidence of tenderness throughout. Back: No spinal tenderness. No costovertebral tenderness. Full range of motion. Skin: Warm, dry with normal turgor. Normal color with no rashes, no lesions, and no evidence of cellulitis. MS/ Extremity: Pulses equal, no cyanosis. Neurovascular intact. Full, normal range of motion. Neuro: Awake and alert, GCS 15, oriented to person, place, time, and situation. Cranial nerves II-XII grossly intact. Motor strength 5/5 in all extremities. Sensory grossly intact. Cerebellar exam normal. Normal gait. 09:57 Eyes: Extraocular movements: intact throughout. Vital Signs: 09:04 BP 118 / 77; Pulse 84; Resp 18; Temp 99.1(O); Pulse Ox 99% on R/A; Weight 73.94 kg; hj Height 5 ft. 4 in. (162.56 cm); 10:36 BP 115 / 75; Pulse 75; Resp 18; Pulse Ox 100% on R/A; hj 09:04 Body Mass Index 27.98 (73.94 kg, 162.56 cm) hj MDM: 09:04 Patient medically screened. [facility] 10:23 Data reviewed: vital signs, nurses notes, lab test result(s), and as a result, I will jr8 discharge patient. Data interpreted: Pulse oximetry: on room air is 99 %. Interpretation: normal. Counseling: I had a detailed discussion with the patient and/or guardian regarding: the historical points, exam findings, and any diagnostic results supporting the discharge/admit diagnosis, lab results, the need for outpatient follow up, a family practitioner, to return to the emergency department if symptoms worsen or persist or if there are any questions or concerns that arise at home. Response to treatment: the patient's symptoms have markedly improved after treatment, patient is well hydrated. ED course: No acute findings on labs or physical exam. Feeling better after being hydrated via IV. Will d/c home to f/u with PCP. If worse knows to come back for further evaluation . 02/23 09:22 Order name: CBC with Diff; Complete Time: 10:08 8 02/23 09:22 Order name: Basic Metabolic Panel; Complete Time: 10:18 [facility] 02/23 09:25 Order name: Urine Dipstick--Ancillary (enter results); Complete Time: 10:23 nd 02/23 09:25 Order name: Urine --Ancillary (enter results); Complete Time: 10:23 nd 02/23 09:07 Order name: Urine Dipstick-Ancillary (obtain specimen); Complete Time: 09:14 02/23 09:07 Order name: Urine Test (obtain specimen); Complete Time: 09:14 02/23 09:22 Order name: IV; Complete Time: 09:43 [facility] Administered Medications: 09:30 Drug: NS 0.9% 1000 ml Route: IV; Rate: 1000 ml; Site: right hand; hj 10:25 Follow up: IV Status: Completed infusion 09:30 Drug: Reglan 10 mg Route: IVP; Site: right hand; hj 09:59 Follow up: Response: No adverse reaction hj 09:30 Drug: Benadryl 25 mg Route: IVP; Site: right hand; hj 09:59 Follow up: Response: No adverse reaction hj Disposition: 15:49 Co-signature as Attending Physician, Vince Arboleda MD. rn Disposition: 02/23/19 10:25 Discharged to Home. Impression: Migraine, Malaise and fatigue. - Condition is Stable. - Discharge Instructions: Migraine Headache, Fatigue. - Medication Reconciliation Form, Thank You Letter, Antibiotic Education, Prescription Opioid Use form. - Follow up: Private Physician; When: 2 - 3 days; Reason: Recheck today's complaints, Continuance of care, Re-evaluation by your physician. - Problem is new. - Symptoms have improved. Signatures: Dispatcher [employer] EDMS Vince Arboleda MD MD rn Roszak, Josh, PA PA jr8 Joshua Jaquez RN RN Corrections: (The following items were deleted from the chart) 10:43 10:25 02/23/2019 10:25 Discharged to Home. Impression: Migraine; Malaise and fatigue. hj Condition is Stable. Forms are Medication Reconciliation Form, Thank You Letter, Antibiotic Education, Prescription Opioid Use. Follow up: Private Physician; When: 2 - 3 days; Reason: Recheck today's complaints, Continuance of care, Re-evaluation by your physician. Problem is new. Symptoms have improved. jr8
[2019-02-23 21:15] VITALS: BP 115/75; TEMP 99.1; O2SAT 100
== END 2019-02-23 10:43 | disposition home or self-care (01) ==
LOC: ER 08:52
DX: G43.909 Migraine, unspecified, not intractable, without status migrainosus (principal); R53.81 Other malaise; R53.83 Other fatigue; Z88.0 Allergy status to penicillin
CPT/HCPCS: 36415; 80048; 81003; 81025; 85025; 96361; 96374; 96375; 99283; J2765; J7030

== ENCOUNTER 2019-06-01 18:55 | Emergency (ER) | payer SELFPAY ==
[2019-06-01] MEDS ORDERED: KETOROLAC 30 MG/ML INJ ONE (20:02)
--- NOTE | 2019-06-01 20:19 | RAD REPORT ---
EXAM DESCRIPTION: RAD - Forearm Left - 06/01/2019 8:09 pm CLINICAL HISTORY: Left forearm pain status post injury FINDINGS: No fracture is seen
--- NOTE | 2019-06-01 20:38 | RAD REPORT ---
EXAM DESCRIPTION: CT - Head C Spine Mpr Wo Con - 06/01/2019 8:08 pm CLINICAL HISTORY: Head and neck injury status post fall. Head and neck pain COMPARISON: None. TECHNIQUE: Computed axial tomography of the head and cervical spine was obtained. Sagittal and coronal reconstruction was performed. All CT scans are performed using dose optimization technique as appropriate and may include automated exposure control or mA/KV adjustment according to patient size. FINDINGS: An intracranial bleed is not seen. The ventricles are normal in caliber. An extra-axial fl uid collection is not noted.Fluid within the visualized sinuses and mastoids is not seen A cervical fracture is not visualized. No dislocation is noted. Loss of the normal lordosis of the ce rvical spine may be secondary to muscle spasm IMPRESSION: No acute intracranial abnormality is seen. A cervical fracture is not visualized. If the patient continues to have symptoms to suggest intracra nial /spinal cord pathology then MRI would be recommended
--- NOTE | 2019-06-01 20:41 | RAD REPORT ---
EXAM DESCRIPTION: RAD - Humerus Left - 06/01/2019 8:09 pm CLINICAL HISTORY: Left arm pain status post fall FINDINGS: No fracture is seen
--- NOTE | 2019-06-01 20:49 | ER ---
Nurse's Notes [facility] Name: Aneta Wang Age: 34 yrs Sex: Female : 1985 Arrival Date: 06/01/2019 Time: 18:56 Bed 5 Private MD: Diagnosis: Post traumatic headache;Left arm pain;Cervicalgia;Left wrist pain;Left shoulder pain;spasm of left trapezius Presentation: 06/01 19:10 Presenting complaint: Patient states: "I was hanging up Halloween decoration and I fell aj1 forward from a 3ft stool, I skinned my knee up. My neck hurts, my back hurts and my arm" Patient reports that she fell face first into the dirt. Patient reports that she passed out when she hit the ground. Transition of care: patient was not received from another setting of care. Onset of symptoms was June 01, 2019 at 18:10. Risk Assessment: Do you want to hurt yourself or someone else? Patient reports no desire to harm self or others. Initial Sepsis Screen: Does the patient meet any 2 criteria? No. Patient's initial sepsis screen is negative. Does the patient have a suspected source of infection? No. Patient's initial sepsis screen is negative. Care prior to arrival: None. 19:10 Method Of Arrival: Wheelchair aj1 19:10 Acuity: TAMMY 3 aj1 19:26 Mechanism of Injury: Fall step tool. Trauma event details: Injury occurred in the [address], Injury occurred: at home. Injury occurred: June 01, 2019. Triage Assessment: 19:13 General: Appears in no apparent distress. comfortable, Behavior is calm, cooperative, aj1 appropriate for age. Pain: Pain currently is 9 out of 10 on a pain scale. Neuro: Level of Consciousness is awake, alert, obeys commands, Oriented to person, place, time, situation, Speech is normal, Facial symmetry appears normal. Cardiovascular: Patient's skin is warm and dry. Respiratory: Airway is patent Respiratory effort is even, unlabored, Respiratory pattern is regular, symmetrical. BUSINESS CONTINUITY MANAGEMENT DIRECTOR: 19:13 LMP N/A - control method aj1 Trauma Activation: Physician: ED Physician; Name: ; Notified At: ; Arrived At: Physician: General Surgeon; Name: ; Notified At: ; Arrived At: Physician: Radiology; Name: ; Notified At: ; Arrived At: Physician: Respiratory; Name: ; Notified At: ; Arrived At: Physician: Lab; Name: ; Notified At: ; Arrived At: 19:26 N/A ak1 Historical: - Allergies: 19:13 PENICILLINS; aj1 - Home Meds: 19:13 Depo-Provera IM [Active]; aj1 - PMHx: 19:13 gestational diabetes; Kidney stones; aj1 - PSHx: 19:13 Tubal ligation; aj1 - Immunization history:: Flu vaccine is not up to date. - Social history:: Smoking status: Patient/guardian denies using tobacco. - Immunization history: Last tetanus immunization: unknown. - Ebola Screening: : Patient denies travel to an Ebola-affected area in the 21 days before illness onset. Screenin:22 Abuse screen: Denies threats or abuse. Denies injuries from another. Nutritional ak1 screening: No deficits noted. Tuberculosis screening: No symptoms or risk factors identified. Fall Risk None identified. Primary Survey: 19:24 NO uncontrolled hemorrhage observed. Breathing/Chest: Respiratory pattern: regular, ak1 Respiratory effort: spontaneous. Circulation: Skin temperature: warm, dry. Disability Alert. Exposure/Environment: There is no evidence of uncontrolled external bleeding. Reassessment Breathing/Chest Respiratory pattern Regular Respiratory effort Spontaneous Unlabored Circulation Temperature Warm Dry Disability Alert. Secondary Survey: 19:24 HEENT: No deficits noted. Head No injury/deformity Face No injury/deformity Eyes: No ak1 injury or deformity noted. Ears: clear Nose: clear Throat: No injury or deformity noted. Gastrointestinal: No deficits noted. : No signs and/or symptoms were reported regarding the genitourinary system. Musculoskeletal: Reports pain in neck, left wrist. Assessment: 19:22 General: Appears in no apparent distress. Behavior is calm, cooperative, pt reports her ak1 father is in lobby, she did not drive herself. . Pain: Complains of pain in neck, left wrist. Neuro: No deficits noted. Cardiovascular: No deficits noted. Respiratory: Airway is patent Respiratory effort is even, unlabored, Respiratory pattern is regular. GI: No signs and/or symptoms were reported involving the gastrointestinal system. : No signs and/or symptoms were reported regarding the genitourinary system. EENT: No signs and/or symptoms were reported regarding the EENT system. Derm: No signs and/or symptoms reported regarding the dermatologic system. Musculoskeletal: pt c/o left wrist pain, left arm pain and neck pain after falling from step stool. 20:03 Reassessment: pt taken to CT. ak1 20:25 Reassessment: Patient appears in no apparent distress at this time. Patient and/or ak1 family updated on plan of care and expected duration. Pain level reassessed. Patient is alert, oriented x 3, equal unlabored respirations, skin warm/dry/pink. 20:54 Reassessment: Patient appears in no apparent distress at this time. Patient and/or ak1 family updated on plan of care and expected duration. Pain level reassessed. Patient is alert, oriented x 3, equal unlabored respirations, skin warm/dry/pink. Patient states feeling better. Patient states symptoms have improved. Vital Signs: 19:13 BP 113 / 74; Pulse 77; Resp 18; Temp 97.9; Pulse Ox 99% on R/A; Weight 79.38 kg (R); aj1 Height 5 ft. 4 in. (162.56 cm) (R); Pain 9/10; 20:27 BP 94 / 64; Pulse 74; Resp 16; Pulse Ox 99% on R/A; ak1 19:13 Body Mass Index 30.04 (79.38 kg, 162.56 cm) aj1 Francie Coma Score: 19:24 Eye Response: spontaneous(4). Verbal Response: oriented(5). Motor Response: obeys ak1 commands(6). Total: 15. Trauma Score (Adult): 19:24 Eye Response: spontaneous(1); Verbal Response: oriented(1); Motor Response: obeys ak1 commands(2); Systolic BP: > 89 mm Hg(4); Respiratory Rate: 10 to 29 per min(4); Francie Score: 15; Trauma Score: 12 ED Course: 18:56 Patient arrived in ED. as 18:57 Tone Wilkinson MD is Attending Physician. ps1 19:13 Triage completed. aj1 19:13 Arm band placed on Patient placed in an exam room. aj1 19:19 Bree Patterson, RN is Primary Nurse. ak1 19:22 Patient has correct armband on for positive identification. Bed in low position. Call ak1 light in reach. Side rails up X 1. Pulse ox on. NIBP on. 19:24 Patient maintains SpO2 saturation greater than 95% on room air. ak1 19:26 Thermoregulation: warm blanket given to patient. ak1 19:26 No provider procedures requiring assistance completed. ak1 20:03 XRAY Forearm LEFT In Process Unspecified. EDMS 20:03 XRAY Humerus LEFT In Process Unspecified. EDMS 20:09 CT Head C Spine In Process Unspecified. EDMS 20:54 Patient did not have IV access during this emergency room visit. ak1 Administered Medications: 20:15 Drug: TORadol 30 mg Route: IM; Site: left gluteus; ak1 20:46 Follow up: Response: No adverse reaction ak1 Intake: 19:24 PO: 0ml; Total: 0ml. ak1 Outcome: 20:48 Discharge ordered by . ps1 20:54 Discharged to home ambulatory, with family. ak1 20:54 Condition: good 20:54 Discharge instructions given to patient, family, Instructed on discharge instructions, follow up and referral plans. no drinking with medication, no driving heavy equipment, medication usage, Demonstrated understanding of instructions, follow-up care, medications, Prescriptions given X 3. 20:55 Patient left the ED. ak1 Signatures: Dispatcher [employer] EDMS Mary Thomas, LEX RN [email or web address] Riana De Anda Amber, RN RN ak1 Tone Wilkinson MD MD ps1
--- NOTE | 2019-06-01 20:49 | EDPHYS ---
Physician Documentation [facility] Name: Aneta Wang Age: 34 yrs Sex: Female : 1985 Arrival Date: 06/01/2019 Time: 18:56 Bed 5 Private MD: ED Physician Tone Wilkinson HPI: 06/01 20:35 This 34 yrs old Black Female presents to ER via Wheelchair with complaints of Fall ps1 Injury. 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 She landed on grass/dirt. Complaining of head pain, left lateral neck pain, left arm, shoulder, and wrist pain. No obvious signs of injury c/w history other than subjective pain. Patient maintains FROM without assistance. . 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 - Social history:: Smoking status: Patient/guardian denies using tobacco. - Immunization history: Last tetanus immunization: unknown. - Ebola Screening: : Patient denies travel to an Ebola-affected area in the 21 days before illness onset. ROS: 20:35 Constitutional: Negative for fever, chills, and weight loss, Eyes: Negative for injury, ps1 pain, redness, and discharge, ENT: Negative for injury, pain, and discharge, Cardiovascular: Negative for chest pain, palpitations, and edema, Respiratory: Negative for shortness of breath, cough, wheezing, and pleuritic chest pain, Abdomen/GI: Negative for abdominal pain, nausea, vomiting, diarrhea, and constipation, Skin: Negative for injury, rash, and discoloration. 20:35 Neck: Positive for tenderness, of the scalp and left trapezius. 20:35 MS/extremity: Positive for pain, of the left arm. 20:35 Neuro: Positive for headache. Exam: 20:35 Constitutional: This is a well developed, well nourished patient who is awake, alert, ps1 and in no acute distress. Head/Face: Normocephalic, atraumatic. Eyes: Pupils equal round and reactive to light, extra-ocular motions intact. Lids and lashes normal. Conjunctiva and sclera are non-icteric and not injected. ENT: Nares patent. No nasal discharge, no septal abnormalities noted. Tympanic membranes are normal and external auditory canals are clear. Oropharynx with no redness, swelling, or masses, exudates, or evidence of obstruction, uvula midline. Mucous membranes moist. Cardiovascular: Regular rate and rhythm. No gallops, murmurs, or rubs. Normal PMI, no JVD. No pulse deficits. Respiratory: Lungs have equal breath sounds bilaterally, clear to auscultation and percussion. No rales, rhonchi or wheezes noted. No increased work of breathing, no retractions or nasal flaring. Abdomen/GI: Soft, non-tender, with normal bowel sounds. No distension or tympany. No guarding or rebound. No evidence of tenderness throughout. Back: No spinal tenderness. No costovertebral tenderness. Full range of motion. Skin: Warm, dry with normal turgor. Normal color with no rashes, no lesions, and no evidence of cellulitis. Neuro: Awake and alert, GCS 15, oriented to person, place, time, and situation. Cranial nerves II-XII grossly intact. Sensory grossly intact. 20:35 Neck: External neck: tenderness, that is mild, of the left trapezius. 20:35 Musculoskeletal/extremity: Extremities: grossly normal except: noted in the dorsal aspect of left wrist: There is no evidence of decreased ROM, deformity. Vital Signs: 19:13 BP 113 / 74; Pulse 77; Resp 18; Temp 97.9; Pulse Ox 99% on R/A; Weight 79.38 kg (R); aj1 Height 5 ft. 4 in. (162.56 cm) (R); Pain 9/10; 20:27 BP 94 / 64; Pulse 74; Resp 16; Pulse Ox 99% on R/A; ak1 19:13 Body Mass Index 30.04 (79.38 kg, 162.56 cm) aj1 [place] Coma Score: 19:24 Eye Response: spontaneous(4). Verbal Response: oriented(5). Motor Response: obeys ak1 commands(6). Total: 15. Trauma Score (Adult): 19:24 Eye Response: spontaneous(1); Verbal Response: oriented(1); Motor Response: obeys ak1 commands(2); Systolic BP: > 89 mm Hg(4); Respiratory Rate: 10 to 29 per min(4); Francie Score: 15; Trauma Score: 12 MDM: 20:33 Patient medically screened. ps1 20:51 Data reviewed: vital signs, nurses notes, lab test result(s), radiologic studies, and ps1 as a result, I will discharge patient. Counseling: I had a detailed discussion with the patient and/or guardian regarding: the historical points, exam findings, and any diagnostic results supporting the discharge/admit diagnosis, radiology results, to return to the emergency department if symptoms worsen or persist or if there are any questions or concerns that arise at home. 06/01 19:37 Order name: XRAY Forearm LEFT; Complete Time: 20:33 ak1 06/01 19:37 Order name: XRAY Humerus LEFT; Complete Time: 20:46 ak1 06/01 19:49 Order name: CT Head C Spine; Complete Time: 20:46 ps1 Administered Medications: 20:15 Drug: TORadol 30 mg Route: IM; Site: left gluteus; ak1 20:46 Follow up: Response: No adverse reaction ak1 Disposition: 06/01/19 20:48 Discharged to Home. Impression: Post traumatic headache, Left arm pain, Cervicalgia, Left wrist pain, Left shoulder pain, spasm of left trapezius. - Condition is Stable. - Discharge Instructions: Concussion, Adult, Muscle Strain. - Prescriptions for Anaprox DS 550 mg Oral Tablet - take 1 tablet by ORAL route every 12 hours As needed; 20 tablet. Robaxin 500 mg Oral Tablet - take 2 tablet by ORAL route every 6 hours As needed; 40 tablet. Tramadol 50 mg Oral Tablet - take 1 tablet by ORAL route every 8 hours as needed; 12 tablet. - Medication Reconciliation Form, Thank You Letter, Antibiotic Education, Prescription Opioid Use form. - Follow up: Private Physician; When: As needed; Reason: Further diagnostic work-up, Recheck today's complaints, Continuance of care, Re-evaluation by your physician. Follow up: Emergency Department; When: As needed; Reason: Worsening of condition. - Problem is new. - Symptoms have improved. Signatures: Dispatcher [employer] EDMary Aguirre, RN RN aj1 Bree Patterson RN RN ak1 Tone Wilkinson MD MD ps1 Corrections: (The following items were deleted from the chart) 20:55 20:48 06/01/2019 20:48 Discharged to Home. Impression: Post traumatic headache; Left ak1 arm pain; Cervicalgia; Left wrist pain; Left shoulder pain; spasm of left trapezius. Condition is Stable. Forms are Medication Reconciliation Form, Thank You Letter, Antibiotic Education, Prescription Opioid Use. Follow up: Private Physician; When: As needed; Reason: Further diagnostic work-up, Recheck today's complaints, Continuance of care, Re-evaluation by your physician. Follow up: Emergency Department; When: As needed; Reason: Worsening of condition. Problem is new. Symptoms have improved. ps1
[2019-06-01 21:42] VITALS: TEMP 97.9; O2SAT 99
[2019-06-01 21:47] VITALS: BP 94/64
== END 2019-06-01 20:55 | disposition home or self-care (01) ==
LOC: ER 18:55
DX: R51 Headache (principal); M54.2 Cervicalgia; M25.532 Pain in left wrist; M25.512 Pain in left shoulder; M62.830 Muscle spasm of back; W17.89XA Other fall from one level to another, initial encounter; Y93.89 Activity, other specified; Y92.017 Garden or yard in single-family (private) house as the place of occurrence of the external cause; Z88.0 Allergy status to penicillin
CPT/HCPCS: 70450; 72125; 96372; 99284

== ENCOUNTER 2019-08-27 15:01 | Emergency (ER) | payer SELFPAY ==
--- OUTSIDE RECORDS SUMMARY | 2019-08-27 15:03 | XMS REPORT ---
:1985 [facility] Address [address] [place] [address] Dr. Kay [address] [place] [id number] Care Team Providers Name Role Phone Unavailable Unavailable Unavailable Problems This patient has no known problems. Allergies, Adverse Reactions, Alerts This patient has no known allergies or adverse reactions. Medications This patient has no known medications.
[2019-08-27] MEDS ORDERED: GLUCAGON 1 MG/VIAL ONE (15:58)
--- NOTE | 2019-08-27 16:29 | ER ---
Nurse's Notes [facility] Name: Aneta Wang Age: 34 yrs Sex: Female : 1985 Arrival Date: 08/27/2019 Time: 15:04 Bed 14 Private MD: Diagnosis: Foreign body in esophagus Presentation: 08/27 15:36 Presenting complaint: Patient states: I was cooking soup and my son put in a plastic jl7 hook and I swallowed it, "I think it's stuck in my esophagus, it hurts to swallow." Pt reports able to swallow secretions but it hurts. Transition of care: patient was not received from another setting of care. Onset of symptoms was August 27, 2019. Risk Assessment: Do you want to hurt yourself or someone else? Patient reports no desire to harm self or others. Initial Sepsis Screen: Does the patient meet any 2 criteria? No. Patient's initial sepsis screen is negative. Does the patient have a suspected source of infection? No. Patient's initial sepsis screen is negative. Care prior to arrival: None. 15:36 Method Of Arrival: Ambulatory [facility] 15:36 Acuity: TAMMY 2 jl7 Triage Assessment: 15:38 General: Appears in no apparent distress. uncomfortable, Behavior is calm, cooperative, jl7 appropriate for age. Pain: Complains of pain in throat Pain currently is 8 out of 10 on a pain scale. EENT: Throat is clear. Neuro: Level of Consciousness is awake, alert, obeys commands. Cardiovascular: Respiratory: Airway is patent Respiratory effort is even, unlabored, Respiratory pattern is regular, symmetrical. Derm: Skin is dry, Skin is normal, Skin temperature is warm. 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 - Social history:: Smoking status: Patient/guardian denies using tobacco. - Ebola Screening: : No symptoms or risks identified at this time. Screenin:46 Abuse screen: Denies threats or abuse. Denies injuries from another. Nutritional bp screening: No deficits noted. Tuberculosis screening: No symptoms or risk factors identified. Fall Risk None identified. Assessment: 15:38 General: SEE TRIAGE NOTE. bp 16:41 Reassessment: PT D/C HOME AMBULATORY WITH FAMILY, DX WITH ESOPHAGEAL FB SENSATION. bp Vital Signs: 15:38 BP 113 / 71; Pulse 85; Resp 19 S; Temp 99(TE); Weight 81.65 kg (R); Height 5 ft. 4 in. jl7 (162.56 cm) (R); Pain 8/10; 16:41 BP 121 / 67; Pulse 79; Resp 16; Temp 98; Pulse Ox 99% ; bp 15:38 Body Mass Index 30.90 (81.65 kg, 162.56 cm) jl7 ED Course: 15:04 Patient arrived in ED. mr 15:38 Triage completed. jl7 15:38 Arm band placed on right wrist. jl7 15:46 Colton Lo, RN is Primary Nurse. bp 15:46 Patient has correct armband on for positive identification. Bed in low position. Call bp light in reach. Side rails up X2. 15:48 Bladimri Cuenca PA is PHCP. jr8 15:48 Lorenzo Elam MD is Attending Physician. jr8 16:05 Inserted saline lock: 22 gauge in right antecubital area, using aseptic technique. bp 16:41 No provider procedures requiring assistance completed. IV discontinued, intact, bp bleeding controlled, No redness/swelling at site. Pressure dressing applied. Administered Medications: 16:05 Drug: Glucagon 1 mg Route: IVP; Site: right antecubital; bp 16:43 Follow up: Response: No adverse reaction bp Outcome: 16:28 Discharge ordered by . jr8 16:41 Discharged to home ambulatory, with family. bp 16:41 Condition: stable 16:41 Discharge instructions given to patient, Instructed on discharge instructions, follow up and referral plans. Demonstrated understanding of instructions, follow-up care. 16:43 Patient left the ED. bp Signatures: Lucy Dodd mr Bladimir Cuenca PA PA jr8 Gale Steiner, LEX RN jl7 Colton Lo, RN RN bp
--- NOTE | 2019-08-27 16:29 | EDPHYS ---
Physician Documentation [facility] Name: Aneta Wang Age: 34 yrs Sex: Female : 1985 Arrival Date: 08/27/2019 Time: 15:04 Bed 14 Private MD: ED Physician Lorenzo Elam HPI: 08/27 16:26 This 34 yrs old Black Female presents to ER via Ambulatory with complaints of Swallowed jr8 Foreign Body. 16:26 The patient or guardian reports the patient has a suspected foreign body, that has been jr8 ingested. The reported likely foreign body is plastic hook. Onset: The symptoms/episode began/occurred acutely, today. Current symptoms: pain, in the area of the foreign body. The patient has not experienced similar symptoms in the past. The patient has not recently seen a physician. Patient stated that her son put one of his toy plastic hooks in there soup she was cooking. Accidently swallowed it when she poured her a bowl of the soup. Pain to upper esophageal region since then without difficulty breathing or coughing . 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 - Social history:: Smoking status: Patient/guardian denies using tobacco. - Ebola Screening: : No symptoms or risks identified at this time. ROS: 16:26 Eyes: Negative for injury, pain, redness, and discharge, ENT: Negative for injury, jr8 pain, and discharge, Neck: Negative for injury, pain, and swelling, Cardiovascular: Negative for chest pain, palpitations, and edema, Respiratory: Negative for shortness of breath, cough, wheezing, and pleuritic chest pain, Abdomen/GI: Negative for abdominal pain, nausea, vomiting, diarrhea, and constipation, Back: Negative for injury and pain, MS/Extremity: Negative for injury and deformity, Skin: Negative for injury, rash, and discoloration, Neuro: Negative for headache, weakness, numbness, tingling, and seizure. Exam: 16:26 Eyes: Pupils equal round and reactive to light, extra-ocular motions intact. Lids and jr8 lashes normal. Conjunctiva and sclera are non-icteric and not injected. Cornea within normal limits. Periorbital areas with no swelling, redness, or edema. ENT: Nares patent. No nasal discharge, no septal abnormalities noted. Tympanic membranes are normal and external auditory canals are clear. Oropharynx with no redness, swelling, or masses, exudates, or evidence of obstruction, uvula midline. Mucous membranes moist. Neck: Trachea midline, no thyromegaly or masses palpated, and no cervical lymphadenopathy. Supple, full range of motion without nuchal rigidity, or vertebral point tenderness. No Meningismus. Cardiovascular: Regular rate and rhythm with a normal S1 and S2. No gallops, murmurs, or rubs. Normal PMI, no JVD. No pulse deficits. Respiratory: Lungs have equal breath sounds bilaterally, clear to auscultation and percussion. No rales, rhonchi or wheezes noted. No increased work of breathing, no retractions or nasal flaring. Abdomen/GI: Soft, non-tender, with normal bowel sounds. No distension or tympany. No guarding or rebound. No evidence of tenderness throughout. Back: No spinal tenderness. No costovertebral tenderness. Full range of motion. Skin: Warm, dry with normal turgor. Normal color with no rashes, no lesions, and no evidence of cellulitis. MS/ Extremity: Pulses equal, no cyanosis. Neurovascular intact. Full, normal range of motion. Neuro: Awake and alert, GCS 15, oriented to person, place, time, and situation. Cranial nerves II-XII grossly intact. Motor strength 5/5 in all extremities. Sensory grossly intact. Cerebellar exam normal. Normal gait. Vital Signs: 15:38 BP 113 / 71; Pulse 85; Resp 19 S; Temp 99(TE); Weight 81.65 kg (R); Height 5 ft. 4 in. 7 (162.56 cm) (R); Pain 8/10; 16:41 BP 121 / 67; Pulse 79; Resp 16; Temp 98; Pulse Ox 99% ; bp 15:38 Body Mass Index 30.90 (81.65 kg, 162.56 cm) [facility] MDM: 15:48 Patient medically screened. jr8 16:26 Data reviewed: vital signs, nurses notes. Counseling: I had a detailed discussion with jr8 the patient and/or guardian regarding: the historical points, exam findings, and any diagnostic results supporting the discharge/admit diagnosis, the need for outpatient follow up, a family practitioner, to return to the emergency department if symptoms worsen or persist or if there are any questions or concerns that arise at home. ED course: After glucagon and PO challenge patient no longer has pain and can swallow just fine. Will d/c home to f/u as needed . 08/27 15:49 Order name: IV; Complete Time: 15:53 jr8 08/27 15:49 Order name: PO challenge; Complete Time: 16:43 jr8 Administered Medications: 16:05 Drug: Glucagon 1 mg Route: IVP; Site: right antecubital; bp 16:43 Follow up: Response: No adverse reaction bp Disposition: 08/27/19 16:28 Discharged to Home. Impression: Foreign body in esophagus. - Condition is Stable. - Discharge Instructions: Foreign Body. - Medication Reconciliation Form, Thank You Letter, Antibiotic Education, Prescription Opioid Use form. - Follow up: Private Physician; When: As needed; Reason: Recheck today's complaints, Continuance of care, Re-evaluation by your physician. - Problem is new. - Symptoms have improved. Addendum: 08/29/2019 09:28 Co-signature as Attending Physician, Lorenzo Elam MD I agree with the assessment and c spence plan of care. Signatures: Lorenzo Elam MD MD cha Roszak, Josh, PA PA jr8 Gale Steiner RN RN jl7 Colton Lo RN RN bp Corrections: (The following items were deleted from the chart) 08/27 16:43 16:28 08/27/2019 16:28 Discharged to Home. Impression: Foreign body in esophagus. bp Condition is Stable. Forms are Medication Reconciliation Form, Thank You Letter, Antibiotic Education, Prescription Opioid Use. Follow up: Private Physician; When: As needed; Reason: Recheck today's complaints, Continuance of care, Re-evaluation by your physician. Problem is new. Symptoms have improved. jr8
[2019-08-27 18:45] VITALS: BP 121/67; TEMP 98; O2SAT 99
== END 2019-08-27 16:43 | disposition home or self-care (01) ==
LOC: ER 15:01
DX: T18.198A Other foreign object in esophagus causing other injury, initial encounter (principal); X58.XXXA Exposure to other specified factors, initial encounter; Z88.0 Allergy status to penicillin
CPT/HCPCS: 96374; 99283; J1610

== ENCOUNTER 2019-10-31 09:26 | Emergency (ER) | payer SELFPAY ==
--- OUTSIDE RECORDS SUMMARY | 2019-10-31 09:39 | XMS REPORT ---
:1985 [facility] Address [address] [place] [address] Dr. Kay [address] [place] [id number] Care Team Providers Name Role Phone Unavailable Unavailable Unavailable Problems This patient has no known problems. Allergies, Adverse Reactions, Alerts This patient has no known allergies or adverse reactions. Medications This patient has no known medications.
--- NOTE | 2019-10-31 09:59 | ER ---
Nurse's Notes [facility] Name: Aneta Wang Age: 34 yrs Sex: Female : 1985 Arrival Date: 10/31/2019 Time: 09:28 Bed 19 Private MD: Diagnosis: Insect bite (nonvenomous) of left forearm Presentation: 10/30 09:45 Chief complaint: Patient states: stung by a wasp to L FA yesterday. Redness noted to ss affected area. Pt reports that swelling has gone down significantly since yesterday, but is concerned that the stinger may be in her arm still. Coronavirus screen: The patient has NOT traveled to a country currently being monitored by the [facility] within the last 14 days. Proceed with normal triage procedures. Ebola Screen: Patient denies exposure to infectious person. Patient denies travel to an Ebola-affected area in the 21 days before illness onset. Onset: The symptoms/episode began/occurred 1 day(s) ago. Anaphylaxis evaluation, no signs or symptoms of anaphylaxis were noted. Initial Sepsis Screen: Does the patient meet any 2 criteria? No. Patient's initial sepsis screen is negative. Does the patient have a suspected source of infection? No. Patient's initial sepsis screen is negative. Risk Assessment: Do you want to hurt yourself or someone else? Patient reports no desire to harm self or others. 09:45 Method Of Arrival: Ambulatory 09:45 Acuity: TAMMY 5 ss Historical: - Allergies: 09:47 PENICILLINS; ss - PMHx: 09:47 gestational diabetes; Kidney stones; ss - PSHx: 09:47 Tubal ligation; ss - Immunization history:: Adult Immunizations up to date. - Social history:: Smoking status: Patient denies any tobacco usage or history of. Screenin:55 Abuse screen: Denies threats or abuse. Denies injuries from another. Nutritional hb screening: No deficits noted. Tuberculosis screening: No symptoms or risk factors identified. Fall Risk None identified. Assessment: 09:55 General: Appears in no apparent distress. Behavior is calm, cooperative. Pain: Pain hb currently is 7 out of 10 on a pain scale. Neuro: Level of Consciousness is awake, alert, obeys commands, Oriented to person, place, time, situation. Cardiovascular: Capillary refill < 3 seconds Patient's skin is warm and dry. Respiratory: Airway is patent Respiratory effort is even, unlabored, Respiratory pattern is regular, symmetrical, Breath sounds are clear bilaterally. GI: No signs and/or symptoms were reported involving the gastrointestinal system. : No signs and/or symptoms were reported regarding the genitourinary system. EENT: No signs and/or symptoms were reported regarding the EENT system. Derm: redness and swelling noted to left forearm. Musculoskeletal: No signs and/or symptoms reported regarding the musculoskeletal system. Vital Signs: 09:36 BP 101 / 70; Pulse 78; Resp 16; Temp 98.7(O); Pulse Ox 98% on R/A; Weight 76.2 kg; dh3 Height 5 ft. 5 in. (165.10 cm); Pain 7/10; 09:36 Body Mass Index 27.96 (76.20 kg, 165.10 cm) 3 ED Course: 09:28 Patient arrived in ED. mr 09:30 Otto Patel NP is PHCP. pm1 09:30 Vince Arboleda MD is Attending Physician. pm1 09:46 Triage completed. ss 09:47 Arm band placed on right wrist. ss 09:55 Patient has correct armband on for positive identification. Bed in low position. Call hb light in reach. Side rails up X 1. 10:05 Ashley Adair, RN is Primary Nurse. hb 10:07 No provider procedures requiring assistance completed. Patient did not have IV access hb during this emergency room visit. Administered Medications: No medications were administered Outcome: 09:58 Discharge ordered by . pm1 10:07 Discharged to home ambulatory. hb 10:07 Condition: stable 10:07 Discharge instructions given to patient, Instructed on discharge instructions, follow up and referral plans. medication usage, Demonstrated understanding of instructions, follow-up care, medications, Prescriptions given X 2. 10:08 Patient left the ED. hb Signatures: DoddLucy colorado Louise Drake RN RN Otto Patel NP PAINTER BOTTOM pm1 Ashley Adair RN RN [facility]
--- NOTE | 2019-10-31 09:59 | EDPHYS ---
Physician Documentation [facility] Name: Aneta Wang Age: 34 yrs Sex: Female : 1985 Arrival Date: 10/31/2019 Time: 09:28 Bed 19 Private MD: ED Physician Vince Arboleda HPI: 10/30 09:57 This 34 yrs old Black Female presents to ER via Ambulatory with complaints of Bee Sting.pm1 09:57 The patient's rash thought to be caused by insect bites. The rash is located on the pm1 left arm. The rash can be described as raised. Onset: The symptoms/episode began/occurred yesterday. Associated signs and symptoms: Pertinent positives: Pain Pertinent negatives: fever, itching, nausea, vomiting. Severity of symptoms: in the emergency department the symptoms have improved markedly. Treatment given at home: Benadryl. The patient has not experienced similar symptoms in the past, up to date tetanus immunization. Patient bitten by red wasp to left forearm yesterday that has improved markedly. Historical: - Allergies: 09:47 PENICILLINS; ss - PMHx: 09:47 gestational diabetes; Kidney stones; ss - PSHx: 09:47 Tubal ligation; ss - Immunization history:: Adult Immunizations up to date. - Social history:: Smoking status: Patient denies any tobacco usage or history of. ROS: 09:57 Constitutional: Negative for fever, chills, and weight loss, ENT: Negative for injury, pm1 pain, and discharge, Cardiovascular: Negative for chest pain, palpitations, and edema, Respiratory: Negative for shortness of breath, cough, wheezing, and pleuritic chest pain, Abdomen/GI: Negative for abdominal pain, nausea, vomiting, diarrhea, and constipation, Back: Negative for injury and pain, MS/Extremity: Negative for injury and deformity. 09:57 Neuro: Negative for headache, weakness, numbness, tingling, and seizure. 09:57 Skin: Positive for swelling, of the palmar aspect of left forearm. Exam: 09:57 Constitutional: This is a well developed, well nourished patient who is awake, alert, pm1 and in no acute distress. Chest/axilla: Normal chest wall appearance and motion. Nontender with no deformity. No lesions are appreciated. Cardiovascular: Regular rate and rhythm with a normal S1 and S2. No gallops, murmurs, or rubs. Normal PMI, no JVD. No pulse deficits. Respiratory: Lungs have equal breath sounds bilaterally, clear to auscultation and percussion. No rales, rhonchi or wheezes noted. No increased work of breathing, no retractions or nasal flaring. Back: No spinal tenderness. No costovertebral tenderness. Full range of motion. 09:57 Skin: Appearance: normal except for affected area, on the palmar aspect of left forearm, wheal. 09:57 Neuro: Exam negative for acute changes, Orientation: is normal, Motor: moves all fours. Vital Signs: 09:36 BP 101 / 70; Pulse 78; Resp 16; Temp 98.7(O); Pulse Ox 98% on R/A; Weight 76.2 kg; dh3 Height 5 ft. 5 in. (165.10 cm); Pain 7/10; 09:36 Body Mass Index 27.96 (76.20 kg, 165.10 cm) 3 MDM: 09:31 Patient medically screened. pm1 09:57 Data reviewed: vital signs. Data interpreted: Pulse oximetry: on room air is 98 %. pm1 Interpretation: normal. Counseling: I had a detailed discussion with the patient and/or guardian regarding: the historical points, exam findings, and any diagnostic results supporting the discharge/admit diagnosis, the need for outpatient follow up, to return to the emergency department if symptoms worsen or persist or if there are any questions or concerns that arise at home. 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 Tramadol prescribed May last year. pm1 Administered Medications: No medications were administered Disposition: 11:17 Co-signature as Attending Physician, Vince Arboleda MD. rn Disposition: 10/31/19 09:58 Discharged to Home. Impression: Insect bite (nonvenomous) of left forearm. - Condition is Stable. - Discharge Instructions: Insect Bite. - Prescriptions for Bactrim DS 800- 160 mg Oral Tablet - take 1 tablet by ORAL route every 12 hours for 10 days; 20 tablet. Tramadol 50 mg Oral Tablet - take 1 tablet by ORAL route every 8 hours as needed; 12 tablet. - Medication Reconciliation Form, Thank You Letter, Antibiotic Education, Prescription Opioid Use form. - Follow up: Emergency Department; When: As needed; Reason: Worsening of condition. Follow up: Private Physician; When: 48 Hours; Reason: Recheck today's complaints, Continuance of care, Re-evaluation by your physician. - Problem is new. - Symptoms have improved. Signatures: Vince Arboleda MD MD rn Smirch, Shelby, RN RN Otto Patel, WILLAM INSULATION BOARD BACK TENDER pm1 Ashley Adair RN RN Corrections: (The following items were deleted from the chart) 10:08 09:58 10/31/2019 09:58 Discharged to Home. Impression: Insect bite (nonvenomous) of hb left forearm. Condition is Stable. Forms are Medication Reconciliation Form, Thank You Letter, Antibiotic Education, Prescription Opioid Use. Follow up: Emergency Department; When: As needed; Reason: Worsening of condition. Follow up: Private Physician; When: 48 Hours; Reason: Recheck today's complaints, Continuance of care, Re-evaluation by your physician. Problem is new. Symptoms have improved. pm1
[2019-10-31 10:14] VITALS: BP 101/70; TEMP 98.7; O2SAT 98
== END 2019-10-31 10:08 | disposition home or self-care (01) ==
LOC: ER 09:26
DX: S50.862A Insect bite (nonvenomous) of left forearm, initial encounter (principal); Z88.0 Allergy status to penicillin
CPT/HCPCS: 99282

== ENCOUNTER 2020-10-06 10:15 | Emergency (ER) | payer SELFPAY ==
[2011-11-27 20:40] VITALS: BP 118/67
[2020-10-06] MEDS ORDERED: LIDOCAINE 1% MPF 5 ML VIAL ONE (10:57)
--- NOTE | 2020-10-06 11:00 | ER ---
Nurse's Notes [facility] Name: Aneta Wang Age: 35 yrs Sex: Female : 1985 Arrival Date: 10/06/2020 Time: 10:18 Bed 12 Private MD: Diagnosis: Laceration without foreign body of left hand Presentation: 10/06 10:28 Chief complaint: Laceration to left hand from kitchen knife. Coronavirus screen: At this time, the client does not indicate any symptoms associated with coronavirus-19. Ebola Screen: No symptoms or risks identified at this time. Complicating Factors: There are no complicating factors for this patient. Initial Sepsis Screen: Does the patient meet any 2 criteria? No. Patient's initial sepsis screen is negative. Does the patient have a suspected source of infection? No. Patient's initial sepsis screen is negative. Risk Assessment: Do you want to hurt yourself or someone else? Patient reports no desire to harm self or others. Onset of symptoms was October 06, 2020. 10:28 Method Of Arrival: Ambulatory hb 10:28 Acuity: TAMMY 4 hb Triage Assessment: 14:41 General: Appears. 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 - Social history:: Smoking status: Patient denies any tobacco usage or history of. Screenin:40 Abuse screen: Denies threats or abuse. Denies injuries from another. Nutritional hb screening: No deficits noted. Tuberculosis screening: No symptoms or risk factors identified. Fall Risk None identified. Assessment: 10:40 General: Appears in no apparent distress. Behavior is calm, cooperative. Pain: Pain hb currently is 4 out of 10 on a pain scale. Neuro: Level of Consciousness is awake, alert, obeys commands, Oriented to person, place, time, situation. Cardiovascular: Capillary refill < 3 seconds Patient's skin is warm and dry. Respiratory: Respiratory effort is even, unlabored, Respiratory pattern is regular, symmetrical. GI: No signs and/or symptoms were reported involving the gastrointestinal system. : No signs and/or symptoms were reported regarding the genitourinary system. EENT: No signs and/or symptoms were reported regarding the EENT system. Derm: Skin is pink, warm \T\ dry. Musculoskeletal: No signs and/or symptoms reported regarding the musculoskeletal system. Injury Description: Laceration sustained to heel of left hand is 2.6 to 7.5 cm long, was sustained less than 30 minutes ago. Vital Signs: 10:30 BP 128 / 76; Pulse 74; Resp 16; Temp 97.7; Pulse Ox 100% on R/A; Pain 5/10; hb ED Course: 10:18 Patient arrived in ED. ds1 10:27 Nevaeh Cuenca F[facility]-C [facility]. kb 10:27 Lorenzo Elam MD is Attending Physician. kb 10:27 Ashley Adair, RN is Primary Nurse. hb 10:27 Arm band placed on. hb 10:28 Triage completed. hb 10:30 Patient has correct armband on for positive identification. Bed in low position. Call hb light in reach. Side rails up X 1. 11:00 No provider procedures requiring assistance completed. Patient did not have IV access hb during this emergency room visit. Administered Medications: No medications were administered Outcome: 10:59 Discharge ordered by . kb 11:00 Discharged to home ambulatory, with family. hb 11:00 Condition: stable 11:00 Discharge instructions given to patient, Instructed on discharge instructions, follow up and referral plans. medication usage, Demonstrated understanding of instructions, follow-up care, medications. 11:05 Patient left the ED. hb Signatures: Nevaeh Cuenca FNP-C FNP-Ckb Sanford, Demi ds1 Ashley Adair, RN RN hb
--- NOTE | 2020-10-06 11:00 | EDPHYS ---
Physician Documentation [facility] Name: Aneta Wang Age: 35 yrs Sex: Female : 1985 Arrival Date: 10/06/2020 Time: 10:18 Bed 12 Private MD: ED Physician Lorenzo Elam HPI: 10/06 11:47 This 35 yrs old Black Female presents to ER via Ambulatory with complaints of kb Laceration To Hand. 11:47 The patient has a laceration related to: cut it on the remote occurred at home, and kb there are no complicating factors. The injury was accidental. The laceration(s) is(are) located on the heel of left hand. Onset: The symptoms/episode began/occurred just prior to arrival. Associated signs and symptoms: The patient has no apparent associated signs or symptoms. The patient has not experienced similar symptoms in the past. The patient has not recently seen a physician. 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 - Social history:: Smoking status: Patient denies any tobacco usage or history of. ROS: 11:45 Constitutional: Negative for fever, chills, and weight loss, Neuro: Negative for kb headache, weakness, numbness, tingling, and seizure. 11:45 MS/extremity: Positive for laceration, of the heel of left hand. 11:45 Skin: Positive for laceration(s), of the heel of left hand. Exam: 11:46 Constitutional: This is a well developed, well nourished patient who is awake, alert, kb and in no acute distress. Head/Face: Normocephalic, atraumatic. MS/ Extremity: Pulses equal, no cyanosis. Neurovascular intact. Full, normal range of motion. Neuro: Awake and alert, GCS 15, oriented to person, place, time, and situation. Cranial nerves II-XII grossly intact. Motor strength 5/5 in all extremities. Sensory grossly intact. Cerebellar exam normal. Normal gait. 11:46 Respiratory: the patient does not display signs of respiratory distress, Respirations: normal. 11:46 Skin: injury, laceration(s), the wound is approximately 1 cm(s), of the heel of left hand, that can be described as clean, no foreign body, linear, without bleeding. Vital Signs: 10:30 BP 128 / 76; Pulse 74; Resp 16; Temp 97.7; Pulse Ox 100% on R/A; Pain 5/10; hb Laceration: 10:58 Wound Repair of 1cm ( 0.4in ) subcutaneous laceration to heel of left hand. Linear kb shaped.. Distal neuro/vascular/tendon intact. Anesthesia: Wound infiltrated with 1 mls of 1% lidocaine. Wound prep: Moderate cleansing with hibiclenz by me, Wound irrigation with saline by me. Skin closed with 2 5-0 Prolene using simple sutures and sterile technique. Dressed with bandaid. Patient tolerated well. MDM: 10:28 Patient medically screened. kb 10:58 Data reviewed: vital signs, nurses notes. Data interpreted: Pulse oximetry: on room air kb is 100 %. Interpretation: normal. Counseling: I had a detailed discussion with the patient and/or guardian regarding: the historical points, exam findings, and any diagnostic results supporting the discharge/admit diagnosis, the need for outpatient follow up, a family practitioner, to return to the emergency department if symptoms worsen or persist or if there are any questions or concerns that arise at home. 10/06 10:30 Order name: Prolene, Sutures; Complete Time: 10:46 kb 10/06 10:30 Order name: Dressing - Wound; Complete Time: 10:46 kb 10/06 10:30 Order name: Gloves, Sterile; Complete Time: 10:46 kb 10/06 10:30 Order name: Setup Suture Tray; Complete Time: 10:46 kb Administered Medications: No medications were administered Disposition: 10/06/20 10:59 Discharged to Home. Impression: Laceration without foreign body of left hand. - Condition is Stable. - Discharge Instructions: Laceration Care, Adult, [id number]. - Medication Reconciliation Form, Thank You Letter, Antibiotic Education, Prescription Opioid Use form. - Follow up: Emergency Department; When: As needed; Reason: Worsening of condition. Follow up: Private Physician; When: 2 - 3 days; Reason: Recheck today's complaints, Continuance of care, Re-evaluation by your physician. Addendum: 10/07/2020 14:42 Co-signature as Attending Physician, Lorenzo Elam MD I agree with the assessment and c spence plan of care. Signatures: Nevaeh Cuenca, MENAGERIE CARETAKER-C MENAGERIE CARETAKER-Gregoriob Lorenzo Elam MD MD cha Baxter, Heather, RN RN hb Corrections: (The following items were deleted from the chart) 10/06 11:05 10:59 10/06/2020 10:59 Discharged to Home. Impression: Laceration without foreign body hb of left hand. Condition is Stable. Forms are Medication Reconciliation Form, Thank You Letter, Antibiotic Education, Prescription Opioid Use. Follow up: Emergency Department; When: As needed; Reason: Worsening of condition. Follow up: Private Physician; When: 2 - 3 days; Reason: Recheck today's complaints, Continuance of care, Re-evaluation by your physician. kb
== END 2020-10-06 11:05 | disposition home or self-care (01) ==
LOC: ER 10:15
PROC: 0JQK0ZZ Repair Left Hand Subcutaneous Tissue and Fascia, Open Approach (ICD-10-PCS; principal; 2020-10-06)
DX: S61.412A Laceration without foreign body of left hand, initial encounter (principal); W26.8XXA Contact with other sharp object(s), not elsewhere classified, initial encounter; Y93.9 Activity, unspecified; Y92.009 Unspecified place in unspecified non-institutional (private) residence as the place of occurrence of the external cause; Z88.0 Allergy status to penicillin
CPT/HCPCS: 99281

== ENCOUNTER 2020-10-17 16:19 | Emergency (ER) | payer SELFPAY ==
[2011-11-27 20:40] VITALS: BP 118/67
--- OUTSIDE RECORDS SUMMARY | 2020-10-17 16:22 | XMS REPORT | Continuity of Care Document ---
:1985 Author Organization [facility] t Address [address] [place] [address] Care Team Providers Name Role Phone Melinda Merrill Attending Clinician Problems This patient has no known problems. Allergies, Adverse Reactions, Alerts This patient has no known allergies or adverse reactions. Medications This patient has no known medications. Procedures This patient has no known procedures. Encounters Start End Encounter Admission Attending Care Care Encounter Source Date/Time Date/Time Type Type Clinicians Facility Department ID 2020-04-24 2020-04-24 Emergency SONIA Corona [id number] 16:30:00 17:27:00 Kathryn Anthony [id number] [place] [id number] [place] [id number] Results This patient has no known results.
--- NOTE | 2020-10-17 16:36 | ER ---
Nurse's Notes [facility] Name: Aneta Wang Age: 35 yrs Sex: Female : 1985 Arrival Date: 10/17/2020 Time: 16:20 Bed Waiting Private MD: Diagnosis: Presentation: 10/17 16:33 Note AJ registration states, pt left and said she has to go and bring her son somewhere ca1 and she didn't think she's going to wait. ED Course: 16:20 Patient arrived in ED. ag5 16:32 Patient's name was called from ER [facility]. No response. Unable to locate patient. Will ca1 disposition as left without being seen by a provider. Administered Medications: No medications were administered Outcome: 16:35 Patient left the ED. ca1 Signatures: Silvana Lawrence, RN RN Shanti Ayoub ag
== END 2020-10-17 16:35 | disposition left against medical advice (07) ==
LOC: ER 16:19
DX: Z02.9 Encounter for administrative examinations, unspecified (principal)

== ENCOUNTER 2022-03-14 10:51 | Emergency (ER) | payer SELFPAY ==
--- OUTSIDE RECORDS SUMMARY | 2022-03-14 10:53 | XMS REPORT | Continuity of Care Document ---
:1985 Author Organization [facility] t Address [address] [place] [address] Care Team Providers Name Role Phone MAG Attending Clinician Unavailable ROBERTH Attending Clinician Unavailable Jurgen VILLAFANA Attending Clinician Unavailable Melinda Merrill Attending Clinician MAG Admitting Clinician Unavailable Problems Condition Condition Condition Status Onset Resolution Last Treating Co mments Source Name Details Category Date Date Treatment Clinician Date Cervical Cervical Disease Active Overview: Un tayler high risk high risk 6-06 HPV +,Pap i ty of human human 00:00: Smear [place] papillomav papillomav 00 results M edical irus (HPV) irus (HPV) negative, Branch DNA test DNA test Cotesting positive positive needed at 12 months or HPV DNA typing. Overweight Overweight Disease Active U nivers (BMI (BMI 6-04 ity of 25.0-29.9) 25.0-29.9[place] Screen for Screen for Disease Active U nivers STD STD 6-04 it[place] of (sexually ([place] transmit[place] 00 Me dical d disease) d disease) Br anch History of History of Disease Active U nivers bilateral bilateral 5-11 ity of tubal tubal 00:00: [place] ligation ligation 00 Medica l Branch Heavy Heavy Disease Active Univers menses menses 5-11 ity of 00:00: [place] 00 Medical Branch Bipolar 1 Bipolar 1 Disease Active Uni vers disorder, disorder, 04-18 [place] of depressed depressed 00[place] Allergies, Adverse Reactions, Alerts Allergy Allergy Status Severity Reaction(s) Onset Inactive Treating Comm ents Source Name Type Date Date Clinician Tramadol Propensi Active Hallucinatio Univers ty to ns 04-24 ity of adverse 00:00: [place] reaction Medical s Branch TRAMADOL DRUG Active Hallucinates Un tayler INGREDI 04-24 ity of 00:00: [place] 00 Medical Branch Penicill Propensi Active Hives Univer s ins ty to 04-18 ity of adverse 00:00: [place] reaction Medical s Branch PENICILL Drug Active Hives Univers INS Class 04-18 ity of 00:00: [place] [facility] Social History Social Habit Start Date Stop Date Quantity Comments Source Alcohol Comment occasional [facility] [place] [facility] [place] Sex Assigned At [facility] [place] [facility] Exposure to Not sure [facility] SARS-CoV-2 [facility] (event) [place] Tobacco use and 2020-04-24 2020-04-24 Never used Universit y of exposure 00:00:00 00:00:00 [facility] [place] [facility] Alcohol intake 2020-04-24 2020-04-24 Current University 00:00:00 00:00:00 non-drinker of [facility] alcohol (finding) [place] Smoking Status Start Date Stop Date Source Never smoker [facility] Medications Ordered Filled Start Stop Current Ordering Indication Dosage Frequency Signature Comments Components Source Medication Medication Date Date Medication? Clinician (SIG) Name Name ibuprofen 2020- No 600mg 600 mg, Uni vers (IBU) 04-24 Oral, ity of tablet 600 22:45: 21:45 ONCE, 1 [place] as mg 00 :00 dose, Tue Medical 04/24/20 at Branch 1745, MELYSSA phenazopyri No 200mg 200 mg, U nivers dine 04-24 Oral, ONCE ity of (PYRIDIUM) 22:45: 21:45 NOW, 1 [place] tablet 200 [place] :00 dose, Tue Medi bruce mg 04/24/20 at Branch 1745, Routine ibuprofen Yes [id number] 600mg Take 1 U nivers 600 mg 04-24 tablet by ity of tablet 00:00: mouth [place] 00 every 6 Medical (six) Branch hours as needed for Pain (scale 4-6). Nitrofurant 2019- No [id number] 100mg Take [facility] oin&Nit. 04-24 capsule by ity of [place] 00:00: 04:59 mouth 2 [place] as 100 mg 00 :00 (two) Medical capsule times Branch daily for 7 days. phenazopyri 2019- No [id number] 200mg Take 1 [facility] dine 04-24 tablet by ity of (PYRIDIUM) 00:00: 04:59 mouth 3 Haresh as 200 mg 00 :00 (three) Medical tablet times Branch daily for 3 days. Immunizations Ordered Filled Immunization Date Status Comments [facility] Immunization Name Name Influenza Virus 2013-10-12 Completed [facility] y of Vaccine (3+ yrs) 00:00:00 [facility] Rubella 2009-02-23 Completed [facility] 00:00:00 [facility] [place] [facility] Td 2008-04-18 Completed [facility] 00:00:00 [facility] Vital Signs Vital Name Observation Time Observation Value Comments Source Systolic blood 2020-04-24 21:28:00 121 mm[Hg] Univer sity pressure [facility] [place] [facility] Diastolic blood 2020-04-24 21:28:00 84 mm[Hg] [facility] 2020-04-24 21:28:00 93 /min [facility] Body temperature 2020-04-24 21:28:00 37.44 [facility] Respiratory rate 2020-04-24 21:28:00 16 /min [facility] Body height 2020-04-24 21:28:00 162.6 cm [facility] Body weight 2020-04-24 21:28:00 77.111 kg [facility] BMI 2020-04-24 21:28:00 29.18 kg/m2 [facility] Oxygen saturation in 2020-04-24 21:28:00 98 /min [facility] Arterial blood by [facility] Pulse oximetry Branch Systolic blood 2020-04-24 21:28:00 121 mm[Hg] Univer sity pressure [facility] Diastolic blood 2020-04-24 21:28:00 84 mm[Hg] Unive rsity of pressure [facility] Heart rate 2020-04-24 21:28:00 93 /min [facility] Body temperature 2020-04-24 21:28:00 37.44 [facility]ige [facility] Respiratory rate 2020-04-24 21:28:00 16 /min [facility] Body height 2020-04-24 21:28:00 162.6 cm [facility] Body weight 2020-04-24 21:28:00 77.111 kg [facility] BMI 2020-04-24 21:28:00 29.18 kg/m2 [facility] Oxygen saturation in 2020-04-24 21:28:00 98 /min [facility] Arterial blood by [facility] Pulse oximetry [place] Procedures Procedure Date / Time Performed Performing Clinician Sour e URINALYSIS 2020-04-24 21:34:00 Kathryn Corona [place] o f [facility] POCT TEST 2020-04-24 21:34:00 Kathryn Corona [facility] NOTICE OF PRIVACY 2020-04-24 21:18:13 Doctor Unassigned, No Univ [facility] PRACTICES Name [facility] CONSENT/REFUSAL FOR 2020-04-24 21:18:02 [facility] TREATMENT Encounters Start End Encounter Admission Attending Care Care Encounter Source Date/Time Date/Time Type Type Clinicians Facility Department ID 2021-06-[address] [facility] [id number] Univers 15:21:52 [facility] [place] [facility] 2022-03-04 2022-03-04 Outpatient [facility] [id number] 04:39:00 04:39:00 [id number] 2021-03-05 2021-03-[address] [facility] [id number] Univers 15:00:00 15:00:00 [facility] [id number] [facility] 2021-03-05 2021-03-[address] [facility] [id number] Univers 00:00:00 00:00:00 CHARISSE [facility] 2021-02-07 2021-02-07 Outpatient R ROBERTH, [facility] [id number] Univers 00:00:00 00:00:00 CHARISSE [id number] [facility] 2021-02-07 2021-02-07 Outpatient R ROBERTH, [facility] [id number] Univers 00:00:00 00:00:00 CHARISSE [facility] 2020-10-02 2020-10-02 Outpatient R LEDY, [facility] [id number] Univers 16:20:00 16:20:00 CABRERA [id number] [facility] [place] [facility] 2020-04-24 2020-04-[address] [facility] [id number] 16:30:00 17:27:00 Kathryn Melinda [place] [id number] [place] [id number] [place] [id number] [facility] 2020-04-24 2020-04-[address] [facility] [id number] [facility] 16:30:00 17:27:00 Kathryn Melinda [place] [id number] i ty of [place] [id number] [facility] [id number] [address] Results Test Description Test Time Test Comments Results Result Comments Source FREE T4 (THYROXINE) 2021-11-07 04:32:21 Test Item Value Reference Range Interpretation Comme nts FREE T4 (THYROXINE) (test code 1.00 NG/DL 0.80-1.90 UNLESS OTHERWISE = 2823) INDICATED, ALL TESTING PERFORMED ATCLINICAL PATH [facility], I [address] 78 54 LABORATORY DIRE CTOR: SERENE MOY M.D. CLIA NUMBER [id number] [facility] [place]. [id number] TSH, THIRD [id number] 05:45:14 Test Item Value Reference Range Interpretation Comments TSH, THIRD <0.010 UIU/ML 0.400-4.100 L UNLESS GENERATION (test OTHERWISE I NDICATED, code = 2821) ALL TESTING PER FORMED ATCLINICAL PATH [facility], I [place] [id number] LABORATORY DIRE CTOR: SERENE DUMONT M.D. CLIA NUMBER [id number] [place] O. [id number] VAGINAL PATHOGENS DNA [id number] 08:24:47 Test Item Value Reference Range Interpretation Comments SUBHASH SPECIES TEST NOT NEGATIVE NO SPECIMEN (test code = PERFORMED RECEIVED FOR ) TESTING. CHARGES DELETED . G. VAGINALIS TEST NOT NEGATIVE NO SPE CIMEN (test code = PERFORMED RECEIVED FOR ) TESTING. CHARGES DELETED . T. VAGINALIS TEST NOT NEGATIVE NO SPE CIMEN (test code = PERFORMED RECEIVED FOR ) TESTING. CHARGES DELETED . UNLESS OTHERW ISE INDICATED, ALL TESTING PERFORM ED ATCLINICAL PATH [facility], [facility]. [address] [place] [address] 78 4 BOOKKEEPING MACHINE MECHANIC: SERENE MOY M.D. CLIA NUMBER [id number] [facility] [place] O. [id number] LIPID [id number] 03:48:14 Test Item Value Reference Range Interpretation Comments CHOLESTEROL (test 146 MG/DL <200 code = 2210) TRIGLYCERIDES (test 54 MG/DL <150 code = 2232) HDL CHOLESTEROL (test 41 MG/DL >39 code = 2220) CALC LDL CHOL (test 91 MG/DL <100 NOTE: C ALCULATED LDL code = 2237) IS BASED ON DEN-HIGUERA METHOD WHICHINCLUDES ADJUSTABLE TRIGLYCERIDE:VL DL CHOLESTEROL RAT IO.THIS FACTOR VARIES B Y MEASURED TRIGLY CERIDE AND NON-HDLCHOL ESTEROL CONCENTRATIONS WITH INCREASED CALCU LATED LDL SEENIN HIGH ER TRIGLYCERIDE OR LOWER NON-HDL SPECIME NS. FOR MOREINFORMATION , SEE CLIENT ANNOUNCE MENT AT [email or web address] [email or web address] LDL/HDL 2.22 RATIO <3.22 (test code = 2238) COMPREHENSIVE METABOLIC [id number] 03:48:14 Test Item Value Reference Range Interpretation Comments GLUCOSE (test code = 82 MG/DL 70-99 2216) BUN (test code = 14 MG/DL -2207) CREATININE (test 0.67 MG/DL 0.60-1.30 code = 2214) eGFR (2020 CKD-EPI) 116 >60 (test code = 05779) ML/MIN/1.73 CALC BUN/CREAT (test 21 RATIO 02-18 code = 2235) SODIUM (test code = 140 MEQ/L 979-615 9932) POTASSIUM (test code 4.3 MEQ/L 3.5-5.4 = 2227) CHLORIDE (test code 106 MEQ/L 95-107 = 2214) CARBON DIOXIDE (test 23 MEQ/L 19-31 code = 2205) CALCIUM (test code = 9.5 MG/DL 8.5-10.5 2208) PROTEIN, TOTAL (test 8.2 G/DL 6.1-8.3 code = 2228) ALBUMIN (test code = 4.3 G/DL 3.5-5.2 2200) CALC GLOBULIN (test 3.9 G/DL 1.9-3.7 H code = 2239) CALC A/G RATIO (test 1.1 RATIO 1.0-2.6 code = 2233) BILIRUBIN, TOTAL 0.2 MG/DL See_Comment [Automated message] (test code = 2206) The syste m which generated this result transmit sandra reference range : <=1.2. The refe rence range was not u sed to interpret th is result as normal/abnormal . ALKALINE PHOSPHATASE 140 U/L 40-112 H (test code = 2203) AST (test code = 17 U/L 9-40 2217) ALT (test code = 14 U/L 5-40 2218) HEPATIC FUNCTION [id number] 03:48:14 Test Item Value Reference Range Interpretation Comments PROTEIN, TOTAL (test 8.2 G/DL 6.1-8.3 code = 2228) ALBUMIN (test code = 4.3 G/DL 3.5-5.2 2200) BILIRUBIN, TOTAL (test 0.2 MG/DL See_Comment [Aut omated message] code = 2207) The system [employer] generated this result transmitted ref erence range: <=1.2. T he reference range was not used to int erpret this result as normal/abnormal . BILIRUBIN, DIRECT 0.1 MG/DL 0.0-0.3 (test code = 2021) ALKALINE PHOSPHATASE 140 U/L 40-112 H (test code = 2203) AST (test code = 8) 17 U/L 9-40 ALT (test code = 2219) 14 U/L 5-40 HEMOGLOBIN [id number] 03:35:24 Test Item Value Reference Range Interpretation Comments HEMOGLOBIN A1c (test code = 85075) 5.5 % 4.2-5.6 CBC W/AUTO DIFF WITH [id number] 03:06:39 Test Item Value Reference Range Interpretation Comments WBC (test code = 7.5 K/UL 3.5-11.0 1001) RBC (test code = 4.72 M/UL 3.80-5.40 1002) HEMOGLOBIN (test code 13.9 G/DL 11.5-15.5 = 1003) HEMATOCRIT (test code 40.6 % 34.0-45.0 = 1004) MCV (test code = 86.0 fL 80.0-99.0 1005) MCH (test code = 29.4 PG 25.0-33.0 1006) MCHC (test code = 34.2 G/DL 31.0-36.0 1007) RDW (test code = 13.1 % 11.5-15.0 1038) NEUTROPHILS (test 51.1 % code = 1008) LYMPHOCYTES (test 39.1 % code = 1010) MONOCYTES (test code 6.3 % = 1011) EOSINOPHILS (test 2.4 % code = 1012) BASOPHILS (test code 0.7 % = 1013) IMMATURE GRANULOCYTES 0.4 % (test code = 1036) NUCLEATED RBCS (test 0.0 /100 See_Comment [Autom ated code = 1065) WBC'S message] The sy stem which generated this result transmitted reference range : 0.0. The refere nce range was not u sed to interpret th is result as normal/abnormal . PLATELET COUNT (test 243 K/UL 130-400 code = 1015) ABSOLUTE NEUTROPHILS 3.84 K/UL 1.50-7.50 (test code = 1066) ABSOLUTE LYMPHOCYTES 2.93 K/UL 1.00-4.00 (test code = 1067) ABSOLUTE MONOCYTES 0.47 K/UL 0.20-1.00 (test code = 1068) ABSOLUTE EOSINOPHILS 0.18 K/UL 0.00-0.50 (test code = 1040) ABSOLUTE BASOPHILS 0.05 K/UL 0.00-0.20 (test code = 1069) ABS IMMATURE 0.03 K/UL 0.00-0.10 GRANULOCYTES (test code = 1020) ABS NUCLEATED RBCS 0.00 K/UL 0.00-0.11 (test code = 59062) [id number] 21:59:00 Test Item Value Reference Range Interpretation Comments APPEARANCE (test code = Hazy Clear A [id number]) COLOR (test code = Yellow Yellow 5518105972) PH (test code = 4.8-8.0 0107519749) SP GRAVITY (test code = 1.003-1.030 7575180596) GLU U QUAL (test code = Normal Normal 8662759755) BLOOD (test code = 2+ Negative A 7491602096) KETONES (test code = Negative Negative 4433533411) PROTEIN (test code = Negative Negative 2887-8) UROBILIN (test code = 4.0 mg/dL Normal A 2538771277) BILIRUBIN (test code = Negative Negative 3277486354) NITRITE (test code = Negative Negative 4500979698) LEUK KAIN (test code = 75/uL Negative A 3295545861) RBC/HPF (test code = See_Comment H [Autom ated message] 6686277213) The system [employer] generated this result transmit sandra reference range : 0 - 3 HPF. The refe rence range was not u sed to interpret th is result as normal/abnormal . WBC/HPF (test code = See_Comment H [Autom ated message] 6541626639) The system [employer] generated this result transmit sandra reference range : 0 - 5 HPF. The refe rence range was not u sed to interpret th is result as normal/abnormal . BACTERIA (test code = Many Negative A 0955917087) MUCOUS (test code = Marked Negative LPF A 0567350011) SQ EPITH (test code = HPF 6111847302) Lab Interpretation (test Abnormal code = 86303-8) [id number] 21[facility]34:00 Test Item Value Reference Range Interpretation Comments POCT PREG (test code = 1605) Negative On board controls acceptable with present C Line (test code = 3574) POCT PREG LOT # (test code = 3575) [id number] POCT PREG TEST DATE (test 03/23/2021 code = 3576) Lab Interpretation (test code = Normal 58465-5) [facility]
--- NOTE | 2022-03-14 12:20 | RAD REPORT ---
EXAM DESCRIPTION: [place] Single View03/14/2022 12:12 pm CLINICAL HISTORY: Cough COMPARISON: 2017 FINDINGS: The lungs appear clear of acute infiltrate. The heart is normal size IMPRESSION: No acute abnormalities displayed
[2022-03-14 13:42] LABS: Absolute Lymphocytes (CBC) 2.2 K/uL (0.7-4.9); Hematocrit 40.3 % (36.0-45.0); Lymphocytes % 30.3 % (15.3-44.8); MCV 92.2 fL (80-100); MPV 8.7 fL (7.6-11.3); RBC Red Blood Cell Count 4.38 M/uL (3.86-4.86)
[2022-03-14 14:11] LABS: Magnesium 2.5 mg/dL (1.8-2.4); Potassium 3.9 mmol/L (3.5-5.1); Troponin High Sensitivity 3.4 pg/mL (<58.9)
[2022-03-14 14:39] LABS: Urine Blood 2+ (Negative); Urine Glucose Negative (Negative); Urine Protein Negative (Negative); Urine Specific Gravity 1.025 (1.005-1.030); Urine pH 6.5 (5.0-7.0)
--- NOTE | 2022-03-14 14:43 | EDPHYS ---
Physician Documentation [facility] Name: Aneta Wang Age: 37 yrs Sex: Female : 1985 Arrival Date: 03/14/2022 Time: 10:54 Bed 17 Private MD: ED Physician Vince Arboleda HPI: 03/14 11:24 This 37 yrs old Black Female presents to ER via Unassigned with complaints of Weakness, cp Heat Exposure. 11:24 The patient presents to the emergency department with weakness of the entire body, cp generalized weakness. Onset: The symptoms/episode began/occurred yesterday, and became worse today. 11:25 Patient's baseline: Neuro: alert and fully oriented, Motor: no deficits, Ambulation: cp walks without assistance, Speech: normal. 11:25 Associated signs and symptoms: Pertinent positives: weakness, Pertinent negatives: cp altered mental status, fever, paresthesias, syncope. 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 - Social history:: Smoking status: Patient denies any tobacco usage or history of. Patient uses alcohol, on a daily basis. ROS: 11:30 Constitutional: Negative for body aches, chills, fever, poor PO intake. cp 11:30 Cardiovascular: Negative for chest pain, edema, palpitations. cp 11:30 Respiratory: Negative for cough, shortness of breath, wheezing. 11:30 Eyes: Negative for injury, pain, redness, and discharge. cp 11:30 ENT: Negative for drainage from ear(s), ear pain, sore throat, difficulty swallowing, difficulty handling secretions. 11:30 Abdomen/GI: Negative for abdominal pain, nausea, vomiting, and diarrhea, constipation. 11:30 : Negative for urinary symptoms, vaginal bleeding, vaginal discharge. 11:30 Neuro: Positive for general weakness, Negative for altered mental status, dizziness, headache, syncope. 11:30 All other systems are negative. Exam: 11:35 Constitutional: The patient appears in no acute distress, alert, awake, cp non-diaphoretic, non-toxic, well developed, well nourished. 11:35 Head/Face: Normocephalic, atraumatic. cp 11:35 Eyes: Periorbital structures: appear normal, Pupils: equal, round, and reactive to light and accomodation, Extraocular movements: intact throughout, Conjunctiva: normal, no exudate, no injection, Sclera: no appreciated abnormality, Lids and lashes: appear normal, bilaterally. 11:35 ENT: External ear(s): are unremarkable, Ear canal(s): are normal, clear, TM's: dullness, bilaterally, Nose: is normal, Mouth: Lips: moist, Oral mucosa: pink and intact, moist, Posterior pharynx: Airway: no evidence of obstruction, patent, Tonsils: are normal in appearance, erythema, is not appreciated, exudate, is not appreciated. 11:35 Neck: ROM/movement: is normal, is supple, without pain, no range of motions limitations. 11:35 Chest/axilla: Inspection: normal, Palpation: is normal, no crepitus, no tenderness. 11:35 Cardiovascular: Rate: normal, Rhythm: regular, Edema: is not appreciated, JVD: is not appreciated. 11:35 Respiratory: the patient does not display signs of respiratory distress, Respirations: normal, no use of accessory muscles, no retractions, labored breathing, is not present, Breath sounds: are clear throughout, no decreased breath sounds, no stridor, no wheezing. 11:35 Abdomen/GI: Inspection: abdomen appears normal, Bowel sounds: active, all quadrants, Palpation: abdomen is soft and non-tender, in all quadrants, rebound tenderness, is not appreciated, involuntary guarding, is not appreciated. 11:35 Back: pain, is absent, ROM is normal. 11:35 Neuro: Orientation: to person, place \T\ time. Mentation: is normal, Cerebellar function: is grossly normal, Motor: moves all fours, strength is normal, Sensation: is normal, Gait: is steady, at a normal pace, without difficulty. 12:31 ECG was reviewed by the Attending Physician. cp Vital Signs: 12:12 BP 116 / 77; Pulse 79; Resp 18; Temp 97.7(O); Pulse Ox 100% on R/A; Weight 83.91 kg; ld1 Height 5 ft. 4 in. (162.56 cm); Pain 0/10; 14:03 BP 101 / 67; Pulse 68; Resp 18; Pulse Ox 97% on R/A; bh1 14:41 BP 122 / 76; Pulse 76; Resp 18; Temp 98.3; Pulse Ox 100% on R/A; bh1 12:12 Body Mass Index 31.75 (83.91 kg, 162.56 cm) ld1 NIH Stroke Scale Scores: 13:10 NIHSS Score: 0 bh1 MDM: 12:23 Patient medically screened. cp 14:42 Data reviewed: vital signs, nurses notes, lab test result(s), EKG, radiologic studies, cp plain films. 14:42 Test interpretation: by ED physician or midlevel provider: ECG, plain radiologic cp studies. Counseling: I had a detailed discussion with the patient and/or guardian regarding: the historical points, exam findings, and any diagnostic results supporting the discharge/admit diagnosis, lab results, radiology results, to return to the emergency department if symptoms worsen or persist or if there are any questions or concerns that arise at home. Response to treatment: the patient's symptoms have mildly improved after treatment, and as a result, I will discharge patient. 03/14 11:18 Order name: Basic Metabolic Panel; Complete Time: 14:24 aa 03/14 14:24 Interpretation: Normal except: CL 108; GLUC 60. cp 03/14 11:18 Order name: CBC with Diff; Complete Time: 14:24 [facility] 03/14 11:18 Order name: Magnesium; Complete Time: 14:24 aa 03/14 11:18 Order name: Troponin HS; Complete Time: 14:24 [facility] 03/14 11:18 Order name: CK; Complete Time: 14:24 [facility] 03/14 14:39 Order name: Urine Dipstick-Ancillary; Complete Time: 14:40 EDMS 03/14 14:40 Interpretation: Normal except: UBLD 2+. cp 03/14 11:18 Order name: XRAY Chest (1 view); Complete Time: 14:24 aa 03/14 11:18 Order name: EKG; Complete Time: 11:19 aa 03/14 11:18 Order name: Cardiac monitoring; Complete Time: 12:57 [facility] 03/14 11:18 Order name: EKG - Nurse/Tech; Complete Time: 13:09 [facility] 03/14 11:18 Order name: IV Saline Lock; Complete Time: 14:21 [facility] 03/14 11:18 Order name: Labs collected and sent; Complete Time: 14:21 [facility] 03/14 11:18 Order name: O2 Per Protocol; Complete Time: 12:15 [facility] 03/14 11:18 Order name: O2 Sat Monitoring; Complete Time: 12:15 [facility] 03/14 14:24 Order name: Urine Dipstick-Ancillary (obtain specimen); Complete Time: 14:38 cp 03/14 14:24 Order name: Urine Test (obtain specimen); Complete Time: 14:38 cp EC:31 Rate is 74 beats/min. Rhythm is regular. MN interval is normal. QRS interval is normal. cp QT interval is normal. T waves are Inverted in lead aVR. Interpreted by me. Reviewed by me. Administered Medications: No medications were administered Point of Care Testing: Blood Glucose: 14:51 Blood Glucose: 60 mg/dL; bh1 Ranges: Critical Glucose Levels:Adult <50 mg/dl or >400 mg/dl <40 mg/dl or >180 mg/dl Disposition Summary: 03/14/22 14:42 Discharge Ordered Location: Home cp Problem: new cp Symptoms: have improved cp Condition: Stable cp Diagnosis - Heat exhaustion, unspecified cp Followup: cp - With: Private Physician - When: 2 - 3 days - Reason: Worsening of condition Discharge Instructions: - Discharge Summary Sheet cp - Heat Exhaustion cp - Preventing Heat Exhaustion, Adult cp Forms: - Medication Reconciliation Form cp - Thank You Letter cp - Antibiotic Education cp - Prescription Opioid Use cp NIH Stroke Scale - NIH Stroke Score Date: 03/14/2022 Time: 13:10 Total Score = 0 1a. Level of Consciousness (LOC) - 0(Alert) 1b. Level of Consciousness (LOC) (Month \T\ Age) - 0(Both) 1c. LOC Commands (Open \T\ Closes Eyes/Forest Products Teacher) - 0(Both) 2. Best Gaze (Lateral Gaze Paresis) - 0(Normal) 3. Visual Field Loss - 0(No visual loss) 4. Facial Palsy - 0(Normal) 5a. Left Arm: Motor (10-second hold) - 0(No drift) 5b. Right Arm: Motor (10-second hold) - 0(No drift) 6a. Left Leg: Motor (5-second hold - always test supine) - 0(No drift) 6b. Right Leg: Motor (5-second hold - always test supine) - 0(No drift) 7. Limb Ataxia (finger/nose \T\ heel/aiken - test with eyes open) - 0(Absent) 8. Sensory Loss (pinprick arms/legs/face) - 0(Normal) 9. Best Language: Aphasia (description/naming/reading) - 0(No aphasia) 10. Dysarthria (speech clarity - read or repeat words) - 0(Normal) 11. Extinction and Inattention (visual/tactile/auditory/spatial/personal) - 0(No abnormality) Initials: [facility] Signatures: Dispatcher [employer] Rima Harding, RN RN aa5 Lorenzo Francisco PA PA cp Dibbern, Lauren, RN RN ld1
--- NOTE | 2022-03-14 14:43 | ER ---
Nurse's Notes [facility] Name: Aneta Wang Age: 37 yrs Sex: Female : 1985 Arrival Date: 03/14/2022 Time: 10:54 Bed 17 Private MD: Diagnosis: Heat exhaustion, unspecified Presentation: 03/14 12:12 Chief complaint: Patient states: Pt reports feeling week after being exposed to heat ld1 yesterday at work. Coronavirus screen: At this time, the client does not indicate any symptoms associated with coronavirus-19. Ebola Screen: No symptoms or risks identified at this time. No acute neurological deficit is noted. Pre-hospital glucose is not applicable to this patient. Initial Sepsis Screen: Does the patient meet any 2 criteria? No. Patient's initial sepsis screen is negative. Does the patient have a suspected source of infection? No. Patient's initial sepsis screen is negative. Risk Assessment: Do you want to hurt yourself or someone else? Patient reports no desire to harm self or others. Onset of symptoms was March 14, 2022. 12:12 Method Of Arrival: Ambulatory ld1 12:12 Acuity: TAMMY 3 ld1 Triage Assessment: 12:13 The onset of the patients symptoms was March 14, 2022 at 12:14. General: Appears in no ld1 apparent distress. comfortable, Behavior is calm, cooperative, appropriate for age. Pain: Denies pain. EENT: No signs and/or symptoms were reported regarding the EENT system. Neuro: Level of Consciousness is awake, alert, obeys commands, Oriented to person, place, time, situation, Reports weakness. Cardiovascular: Capillary refill < 3 seconds Patient's skin is warm and dry. Respiratory: Airway is patent Respiratory effort is even, unlabored. GI: Abdomen is flat, non-distended. : No signs and/or symptoms were reported regarding the genitourinary system. Derm: No signs and/or symptoms reported regarding the dermatologic system. Musculoskeletal: No signs and/or symptoms reported regarding the musculoskeletal system. 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 - Social history:: Smoking status: Patient denies any tobacco usage or history of. Patient uses alcohol, on a daily basis. Screenin:11 Abuse screen: Denies threats or abuse. Nutritional screening: No deficits noted. 1 Tuberculosis screening: No symptoms or risk factors identified. Fall Risk None identified. Assessment: 13:10 VAN Scoring: Arm Drift: Patients demonstrates NO arm weakness. Patient is VAN Negative. 1 Visual Disturbance: No visual disturbance noted. Aphasia: No aphasia noted. Neglect: No neglect noted. Patient has been NPO before screening. The patient is alert, and able to follow commands. The patient does not exhibit slurred or garbled speech. The patient is not exhibiting difficulty speaking. The patient does not exhibit difficulty understanding words. The patient is able to swallow own secretions with no drooling or need for suction. Patient tolerated one teaspoon of water. No drooling, immediate coughing, gurgling, or clearing of the throat was noted. The patient tolerated 90mL of water. No drooling, immediate coughing, gurgling, or clearing of the throat was noted. The patient passed the bedside swallow screening. Oral medications may be given as ordered. Contact Physician for further diet orders. Provider notified of bedside swallow screening results: Lorenzo DUPREE. TNKase (Tenecteplase) Screening: Indications: Definite evidence of stroke, ischemic, embolic, or hypertensive: No. Vital Signs: 12:12 BP 116 / 77; Pulse 79; Resp 18; Temp 97.7(O); Pulse Ox 100% on R/A; Weight 83.91 kg; ld1 Height 5 ft. 4 in. (162.56 cm); Pain 0/10; 14:03 BP 101 / 67; Pulse 68; Resp 18; Pulse Ox 97% on R/A; bh1 14:41 BP 122 / 76; Pulse 76; Resp 18; Temp 98.3; Pulse Ox 100% on R/A; bh1 12:12 Body Mass Index 31.75 (83.91 kg, 162.56 cm) 1 NIH Stroke Scale Scores: 13:10 NIHSS Score: 0 [facility] ED Course: 10:54 Patient arrived in ED. as 10:56 Lorenzo Francisco PA is PHCP. cp 10:56 Vince Arboleda MD is Attending Physician. cp 12:13 Triage completed. ld1 12:13 Arm band placed on right wrist. ld1 12:14 XRAY Chest (1 view) In Process Unspecified. EDMS 12:27 Bed in low position. Call light in reach. Side rails up X 1. Door closed. Noise mb7 minimized. Warm blanket given. 12:27 EKG done, by ED staff, reviewed by Lorenzo DUPREE. mb7 12:34 Jeanie Villalobos, RN is Primary Nurse. bh1 13:10 Missed attempt(s): 22 gauge in right hand. 1 13:11 No apparent distress. Resting quietly. Awaiting lab results, Awaiting radiology results.1 13:46 Accessed peripheral vein via ultrasound, utilizing dynamic ultrasound technique using jd3 20G Nexia IV catheter ,sterile technique, per hospital protocol. Good blood return. Flushes easily. placed to the left AC. 14:04 No apparent distress. Resting quietly. Awaiting lab results, Awaiting radiology results.1 14:42 No apparent distress. Resting quietly. Awaiting disposition. [facility] 14:51 No provider procedures requiring assistance completed. IV discontinued, intact, [facility] bleeding controlled, No redness/swelling at site. Administered Medications: No medications were administered Medication: 13:11 VIS not applicable for this client. [facility] Point of Care Testing: Blood Glucose: 14:51 Blood Glucose: 60 mg/dL; [facility] Ranges: Outcome: 14:42 Discharge ordered by . cp 14:50 Discharged to home ambulatory. [facility] 14:50 Condition: good 14:50 Discharge instructions given to patient, Instructed on discharge instructions, follow up and referral plans. Demonstrated understanding of instructions, follow-up care. 14:51 Patient left the ED. [facility] NIH Stroke Scale - NIH Stroke Score Date: 03/14/2022 Time: 13:10 Total Score = 0 1a. Level of Consciousness (LOC) - 0(Alert) 1b. Level of Consciousness (LOC) (Month \T\ Age) - 0(Both) 1c. 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 Best Gaze (Lateral Gaze Paresis) - 0(Normal) 3. Visual Field Loss - 0(No visual loss) 4. Facial Palsy - 0(Normal) 5a. Left Arm: Motor (10-second hold) - 0(No drift) 5b. Right Arm: Motor (10-second hold) - 0(No drift) 6a. Left Leg: Motor (5-second hold - always test supine) - 0(No drift) 6b. Right Leg: Motor (5-second hold - always test supine) - 0(No drift) 7. Limb Ataxia (finger/nose \T\ heel/aiken - test with eyes open) - 0(Absent) 8. Sensory Loss (pinprick arms/legs/face) - 0(Normal) 9. Best Language: Aphasia (description/naming/reading) - 0(No aphasia) 10. Dysarthria (speech clarity - read or repeat words) - 0(Normal) 11. Extinction and Inattention (visual/tactile/auditory/spatial/personal) - 0(No abnormality) Initials: [facility] Signatures: Dispatcher [employer] Riana Glover Corey, PA PA cp Davies, Jonathon, RN RN jd3 Jessica Martinez RN RN ld1 Lucy Conway mb7 Jeanie Villalobos RN RN bh1
[2022-03-14 15:01] VITALS: BP 122/76; TEMP 98.3; O2SAT 100
--- NOTE | 2022-03-16 06:23 | EKG ---
Test Date: 2022-03-14 Test Time: 12:25:16 Buck Presser: GARCIA MEASUREMENT RESULTS: Intervals: Rate: 74 [place]: 170 QRSD: 78 QT: 364 QTc: 404 [place]: P: 67 [place]: 170 QRS: 64 T: 49 INTERPRETIVE STATEMENTS: Normal sinus rhythm with sinus arrhythmia Normal ECG Compared to ECG 09/07/2016 17:50:06 No significant changes Electronically Signed On 03-16-22 06:22:05 CDT by Aguila Vela
== END 2022-03-14 14:51 | disposition home or self-care (01) ==
LOC: ER 10:51
DX: T67.5XXA Heat exhaustion, unspecified, initial encounter (principal); Z88.0 Allergy status to penicillin
CPT/HCPCS: 36415; 71045; 80048; 81003; 82550; 83735; 84484; 85025; 93005; 99284

== ENCOUNTER 2022-08-30 18:32 | Emergency (ER) | payer SELFPAY ==
--- OUTSIDE RECORDS SUMMARY | 2022-08-30 18:41 | XMS REPORT | Continuity of Care Document ---
:1985 Author Organization [facility] t Address [address] [place] [address] Care Team Providers Name Role Phone Vicky Prieto Primary Care Physician [phone] MAG Attending Clinician Unavailable CHARISSE LEPE Attending Clinician Unavailable CABRERA VILLAFANA Attending Clinician Unavailable Kathryn Merrill Attending Clinician MAG Admitting Clinician Unavailable Problems Condition Condition Condition Status Onset Resolution Last Treating Co mments Source Name Details Category Date Date Treatment Clinician Date Cervical Cervical Disease Active Overview: Un tayler high risk high risk 6-06 HPV +,Pap i ty of human human 00:00: Smear [place] papillomav papillomav 00 results M edical irus [...] 1 Disease Active Uni vers disorder, disorder, 8-26 [place] [facility] Allergies, Adverse Reactions, Alerts Allergy Allergy Status Severity Reaction(s) Onset Inactive Treating Comm ents Source Name Type Date Date Clinician Penicill Propensi Active ins ty to 4-14 adverse 00:00: reaction 00 to drug Tramadol Propensi Active Hallucinatio Univers ty to ns 04-24 ity of adverse 00:00: [place] reaction Medical s Branch TRAMADOL DRUG Active Hallucinates Un tayler INGREDI 04-24 ity of 00:00: [place] 00 Medical Branch Penicill Propensi Active Hives Univer s ins ty to 8- ity of adverse 00:00: [place] reaction Medical s Branch PENICILL Drug Active Hives Univers INS Class 8-26 ity of 00:00: [place] 00 [facility] Social History Social Habit Start Date Stop Date Quantity Comments Source Alcohol Comment occasional [facility] Sex Assigned At [facility] Exposure to Not sure [facility] SARS-CoV-2 [facility] (event) Branch Tobacco use and 2020-04-24 2020-04-24 Never used Universit y of exposure 00:00:00 00:00:00 [facility] Alcohol intake 2020-04-24 2020-04-24 Current University 00:00:00 00:00:00 non-drinker of [facility] alcohol (finding) Branch Smoking Status Start Date Stop Date Source Never smoker [facility] Branch Medications Ordered Filled Start Stop Current Ordering Indication Dosage Frequency Signature Comments Components Source Medication Medication Date Date Medication? Clinician (SIG) Name Name Dose No Unknown 4-03 00:00: 00 Dose 2021-0 No Unknown 4- 00:00: 00 Dose 2021-0 No Unknown 4- 00:00: 00 Dose 2021-0 No Unknown 3- 00:00: 00 Dose 2021-0 No Unknown 3- 00:00: 00 Dose 2021-0 No Unknown 3- 00:00: 00 Dose 2021-0 No Unknown 3- 00:00: 00 Dose 2022-0 No Unknown 3-31 00:00: 00 Dose 2022-0 No Unknown 3-31 00:00: 00 Dose 2022-0 No Unknown 3-16 00:00: 00 Dose 2022-0 No Unknown 3-16 00:00: 00 Dose 2022-0 No Unknown 3-16 00:00: 00 Dose 2022-0 No Unknown 3-16 00:00: 00 Dose 2022-0 No Unknown 3-16 00:00: 00 Dose 2022-0 No Unknown 3-16 00:00: 00 Dose 2022-0 No Unknown 2-21 00:00: 00 Dose 2022-0 No Unknown 2-21 00:00: 00 Dose 2022-0 No Unknown 2-21 00:00: 00 Dose 2022-0 No Unknown 2-17 00:00: 00 Dose 2022-0 No Unknown 2-17 00:00: 00 Dose 2022-0 No Unknown 2-17 00:00: 00 Dose 2022-0 No Unknown 2-09 00:00: 00 Dose 2022-0 No Unknown 2-09 00:00: 00 Dose 2022-0 No Unknown 2-09 00:00: 00 Dose 1-0 No Unknown 6-28 00:00: 00 Dose 1-0 No Unknown 6-28 00:00: 00 Dose 1-0 No Unknown 6-28 00:00: 00 methimazole 1-0 No 1mg 5 mg tablet 6-17 00:00: 00 methimazole 2020-0 No 1mg 5 mg tablet 6-17 00:00: 00 methimazole 2020-0 No 1mg 5 mg tablet 6-17 00:00: 00 ibuprofen 2019- No 600mg 600 mg, Uni vers (IBU) 04-24 Oral, ity of tablet 600 22:45: 21:45 ONCE, 1 Haresh as mg 00 :00 dose, G[facility] Medical 04/24/20 at Branch 1745, MELYSSA phenazopyri 2019- No 200mg 200 mg, U nivers dine 04-24 Oral, ONCE ity of (PYRIDIUM) 22:45: 21:45 NOW, 1 [place] tablet 200 00 :00 dose, Gaurav Medi bruce mg 04/24/20 at Branch 1745, Routine ibuprofen 2020-0 Yes [id number] 600mg Take 1 U nivers 600 mg 04-24 tablet by ity of tablet 00:00: mouth [place] 00 every 6 Medical (six) Branch hours as needed for Pain (scale 4-6). Nitrofurant 2019-0 2020- No [id number] 100mg Take 1 Univers oin&Nit. 04-24 capsule by ity of Macrocryst 00:00: 04:59 mouth 2 Haresh as 100 mg 00 :00 (two) Medical capsule times Branch daily for 7 days. phenazopyri 2019- No [id number] 200mg Take 1 Univers dine 04-24 tablet by ity of (PYRIDIUM) 00:00: 04:59 mouth 3 Haresh as 200 mg 00 :00 (three) Medical tablet times Branch daily for 3 days. Diflucan 2019-0 No 1mg 150 mg 7-22 tablet 00:00: 00 Diflucan 2019-0 No 1mg 150 mg 7-22 tablet 00:00: 00 Diflucan 2019-0 No 1mg 150 mg 7-22 tablet 00:00: 00 ipratropium 2019-0 No % bromide 7-10 0.02 % 00:00: solution 00 for inhalation ipratropium 2019-0 No % bromide 7-10 0.02 % 00:00: solution 00 for inhalation ipratropium 2019-0 No % bromide 7-10 0.02 % 00:00: solution 00 for inhalation azithromyci 2019-0 No mg n 250 mg 7-08 tablet 00:00: 00 ipratropium 2019-0 No 1% bromide 7-08 0.02 % 00:00: solution 00 for inhalation azithromyci 2019-0 No mg n 250 mg 7-08 tablet 00:00: 00 ipratropium 2019-0 No 1% bromide 7-08 0.02 % 00:00: solution 00 for inhalation azithromyci 2019-0 No mg n 250 mg 7-08 tablet 00:00: 00 ipratropium 2019-0 No 1% bromide 7-08 0.02 % 00:00: solution 00 for inhalation cetirizine 2019-0 No 1mg 10 mg 2-18 tablet 00:00: 00 Macrobid 2019-0 No 1mg 100 mg 2-18 capsule 00:00: 00 cetirizine 2019-0 No 1mg 10 mg 2-18 tablet 00:00: 00 Macrobid 2019-0 No 1mg 100 mg 2-18 capsule 00:00: 00 cetirizine 2019-0 No 1mg 10 mg 2-18 tablet 00:00: 00 Macrobid 2019-0 No 1mg 100 mg 2-18 capsule 00:00: 00 Immunizations Ordered Filled Immunization Date Status Comments Sour e Immunization Name Name Matt MURILLO 2020-10-19 Completed Vaccine 00:00:00 Matt COVID-19 2020-10-19 Completed Vaccine 00:00:00 Matt COVID-19 2020-10-19 Completed Vaccine 00:00:00 Matt COVID-19 2020-09-29 Completed Vaccine 00:00:00 Matt COVID-19 2020-09-29 Completed Vaccine 00:00:00 Matt COVID-19 2020-09-29 Completed Vaccine 00:00:00 Influenza Virus 2013-10-12 Completed Universit y of Vaccine (3+ yrs) 00:00:00 [facility] dical Branch Rubella 2009-02-23 Completed University of 00:00:00 [facility] Td 2008-04-18 Completed University of 00:00:00 [facility] Vital Signs Vital Name Observation Time Observation Value Comments Source Systolic blood 2020-04-24 21:28:00 121 mm[Hg] Univer sity of pressure [facility] Diastolic blood 2020-04-24 21:28:00 84 mm[Hg] Unive rsity of [email or web address] Heart rate 2020-04-24 21:28:00 93 /min [facility] Body temperature 2020-04-24 21:28:00 37.44 Paige [facility] Res[facility] 2020-04-24 21:28:00 16 /min [facility] Body height 2020-04-24 21:28:00 162.6 cm [facility] Body weight 2020-04-24 21:28:00 77.111 kg [facility] BMI 2020-04-24 21:28:00 29.18 kg/m2 [facility] Oxygen saturation in 2020-04-24 21:28:00 98 /min [facility] Arterial blood by [facility] Pulse oximetry Branch Systolic blood 2020-04-24 21:28:00 121 mm[Hg] Univer sity of pressure [facility] Diastolic blood 2020-04-24 21:28:00 84 mm[Hg] Unive rsity of pressure [facility] Heart rate 2020-04-24 21:28:00 93 /min [facility]i [facility] Body temperature 2020-04-24 21:28:00 37.44 Paige Univ ersity of [facility] Respiratory rate 2020-04-24 21:28:00 16 /min [facility] ersity of [facility] Body height 2020-04-24 21:28:00 162.6 cm [facility]i ty [facility] Body weight 2020-04-24 21:28:00 77.111 kg [facility]i [facility] BMI 2020-04-24 21:28:00 29.18 kg/m2 Universi ty [facility] [place] [facility] Oxygen saturation in 2020-04-24 21:28:00 98 /min University Arterial blood by [facility] Pulse oximetry Branch BP Systolic 2022-07-31 16:36:00 126 mm[Hg] BP Diastolic 2022-07-31 16:36:00 91 mm[Hg] Weight Measured 2022-07-31 16:36:00 203.60 pounds Height Measured 2022-07-31 16:36:00 64.00 inches Body Temperature 2022-07-31 16:36:00 97.60 degrees Heart Rate 2022-07-31 16:36:00 108.00 /min Respiratory Rate 2022-07-31 16:36:00 BP Systolic 2022-05-15 16:19:00 112 mm[Hg] BP Diastolic 2022-05-15 16:19:00 77 mm[Hg] Weight Measured 2022-05-15 16:19:00 199.80 pounds Height Measured 2022-05-15 16:19:00 64.00 inches Body Temperature 2022-05-15 16:19:00 97.80 degrees Heart Rate 2022-05-15 16:19:00 83.00 /min Respiratory Rate 2022-05-15 16:19:00 BP Systolic 2022-02-25 08:47:00 118 mm[Hg] BP Diastolic 2022-02-25 08:47:00 81 mm[Hg] Weight Measured 2022-02-25 08:47:00 190.20 pounds Height Measured 2022-02-25 08:47:00 64.00 inches Body Temperature 2022-02-25 08:47:00 98.00 degrees Heart Rate 2022-02-25 08:47:00 80.00 /min Respiratory Rate 2022-02-25 08:47:00 16.00 /min BP Systolic 2021-12-06 09:06:00 121 mm[Hg] BP Diastolic 2021-12-06 09:06:00 87 mm[Hg] Weight Measured 2021-12-06 09:06:00 183.80 pounds Height Measured 2021-12-06 09:06:00 64.00 inches Body Temperature 2021-12-06 09:06:00 98.40 degrees Heart Rate 2021-12-06 09:06:00 80.00 /min Respiratory Rate 2021-12-06 09:06:00 16.00 /min BP Systolic 2021-09-24 16:51:00 117 mm[Hg] BP Diastolic 2021-09-24 16:51:00 85 mm[Hg] Weight Measured 2021-09-24 16:51:00 179.80 pounds Height Measured 2021-09-24 16:51:00 64.00 inches Body Temperature 2021-09-24 16:51:00 96.30 degrees Heart Rate 2021-09-24 16:51:00 86.00 /min Respiratory Rate 2021-09-24 16:51:00 16.00 /min BP Systolic 2021-09-20 16:45:00 108 mm[Hg] BP Diastolic 2021-09-20 16:45:00 75 mm[Hg] Weight Measured 2021-09-20 16:45:00 180.20 pounds Height Measured 2021-09-20 16:45:00 64.00 inches Body Temperature 2021-09-20 16:45:00 98.40 degrees Heart Rate 2021-09-20 16:45:00 96.00 /min Respiratory Rate 2021-09-20 16:45:00 BP Systolic 2021-07-01 16:58:00 116 mm[Hg] BP Diastolic 2021-07-01 16:58:00 79 mm[Hg] Weight Measured 2021-07-01 16:58:00 177.80 pounds Height Measured 2021-07-01 16:58:00 64.00 inches Body Temperature 2021-07-01 16:58:00 97.80 degrees Heart Rate 2021-07-01 16:58:00 74.00 /min Respiratory Rate 2021-07-01 16:58:00 17.00 /min BP Systolic 2021-04-16 16:43:00 99 mm[Hg] BP Diastolic 2021-04-16 16:43:00 67 mm[Hg] Weight Measured 2021-04-16 16:43:00 185.00 pounds Height Measured 2021-04-16 16:43:00 64.00 inches Body Temperature 2021-04-16 16:43:00 98.60 degrees Heart Rate 2021-04-16 16:43:00 87.00 /min Respiratory Rate 2021-04-16 16:43:00 21.00 /min BP Systolic 2021-02-14 08:37:00 116 mm[Hg] BP Diastolic 2021-02-14 08:37:00 75 mm[Hg] Weight Measured 2021-02-14 08:37:00 182.02 pounds Height Measured 2021-02-14 08:37:00 64.00 inches Body Temperature 2021-02-14 08:37:00 98.00 degrees Heart Rate 2021-02-14 08:37:00 93.00 /min Respiratory Rate 2021-02-14 08:37:00 BP Diastolic 2021-01-31 08:47:00 63 mm[Hg] Weight Measured 2021-01-31 08:47:00 181.60 pounds Height Measured 2021-01-31 08:47:00 64.00 inches Body Temperature 2021-01-31 08:47:00 98.40 degrees Heart Rate 2021-01-31 08:47:00 77.00 /min Respiratory Rate 2021-01-31 08:47:00 18.00 /min BP Systolic 2021-01-31 08:47:00 94 mm[Hg] BP Systolic 2021-01-25 10:56:00 127 mm[Hg] BP Diastolic 2021-01-25 10:56:00 86 mm[Hg] Weight Measured 2021-01-25 10:56:00 182.40 pounds Height Measured 2021-01-25 10:56:00 64.00 inches Body Temperature 2021-01-25 10:56:00 98.20 degrees Heart Rate 2021-01-25 10:56:00 77.00 /min Respiratory Rate 2021-01-25 10:56:00 BP Systolic 2020-11-07 16:22:00 106 mm[Hg] BP Diastolic 2020-11-07 16:22:00 76 mm[Hg] Weight Measured 2020-11-07 16:22:00 182.40 pounds Height Measured 2020-11-07 16:22:00 64.00 inches Body Temperature 2020-11-07 16:22:00 99.50 degrees Heart Rate 2020-11-07 16:22:00 89.00 /min Respiratory Rate 2020-11-07 16:22:00 16.00 /min Procedures Procedure Date / Time Performed Performing Clinician Sourc e URINALYSIS 2020-04-24 21:34:00 Kathryn Corona [facility] POCT TEST 2020-04-24 21:34:00 Kathryn Corona [facility] NOTICE OF PRIVACY 2020-04-24 21:18:13 Doctor Unassigned, No [facility]REFUSAL FOR 2020-04-24 21:18:02 [facility] Un[facility], [facility] T[facility]AT[facility] Plan of Care Planned Activity Planned Date Details Comments Source Goal Plan of Care Note [code = 86816-3] Goal Plan of Care Note [code = 14635-7] Goal Plan of Care Note [code = 10636-2] Goal Plan of Care Note [code = 16663-9] Goal Plan of Care Note [code = 21609-1] Goal Plan of Care Note [code = 75598-5] Goal Plan of Care Note [code = 22415-3] Goal Plan of Care Note [code = 01720-4] Goal Plan of Care Note [code = 80489-5] Goal Plan of Care Note [code = 33121-2] Goal Plan of Care Note [code = 94052-0] Goal Plan of Care Note [code = 27453-0] Goal Plan of Care Note [code = 73249-7] Goal Plan of Care Note [code = 79438-9] Goal Plan of Care Note [code = 18588-4] Goal Plan of Care Note [code = 64506-7] Goal Plan of Care Note [code = 33846-8] Goal Plan of Care Note [code = 73631-7] Goal Plan of Care Note [code = 96269-5] Goal Plan of Care Note [code = 78970-4] Goal Plan of Care Note [code = 00314-6] Goal Plan of Care Note [code = 67663-8] Goal Plan of Care Note [code = 78631-1] Goal Plan of Care Note [code = 24645-3] Goal Plan of Care Note [code = 37757-5] Goal Plan of Care Note [code = 10345-2] Goal Plan of Care Note [code = 71976-2] Goal Plan of Care Note [code = 18406-7] Goal Plan of Care Note [code = 74278-8] Goal Plan of Care Note [code = 99005-3] Goal Plan of Care Note [code = 15973-5] Goal Plan of Care Note [code = 03265-0] Goal Plan of Care Note [code = 45514-1] Goal Plan of Care Note [code = 81622-3] Goal Plan of Care Note [code = 67274-2] Goal Plan of Care Note [code = 18779-0] Goal Plan of Care Note [code = 98928-3] Goal Plan of Care Note [code = 37550-4] Goal Plan of Care Note [code = 51852-1] Goal Plan of Care Note [code = 03196-3] Goal Plan of Care Note [code = 62046-2] Goal Plan of Care Note [code = 36160-4] Goal Plan of Care Note [code = 19804-1] Goal Plan of Care Note [code = 17658-8] Goal Plan of Care Note [code = 16229-0] Goal Plan of Care Note [code = 13739-7] Goal Plan of Care Note [code = 28860-7] Goal Plan of Care Note [code = 41243-7] Goal Plan of Care Note [code = 21662-4] Goal Plan of Care Note [code = 99096-2] Goal Plan of Care Note [code = 35967-4] Goal Plan of Care Note [code = 81413-6] Goal Plan of Care Note [code = 96443-1] Goal Plan of Care Note [code = 38636-0] Goal Plan of Care Note [code = 85720-5] Goal Plan of Care Note [code = 57782-0] Goal Plan of Care Note [code = 94798-0] Goal Plan of Care Note [code = 80247-2] Goal Plan of Care Note [code = 40000-6] Goal Plan of Care Note [code = 01369-6] Goal Plan of Care Note [code = 27215-4] Goal Plan of Care Note [code = 44344-1] Goal Plan of Care Note [code = 17157-7] Goal Plan of Care Note [code = 91312-0] Goal Plan of Care Note [code = 72881-0] Goal Plan of Care Note [code = 67429-6] Goal Plan of Care Note [code = 51410-4] Goal Plan of Care Note [code = 25290-2] Goal Plan of Care Note [code = 64709-3] Goal Plan of Care Note [code = 66212-4] Goal Plan of Care Note [code = 26115-5] Goal Plan of Care Note [code = 60981-4] Goal Plan of Care Note [code = 80917-5] Goal Plan of Care Note [code = 24627-7] Goal Plan of Care Note [code = 03848-6] Goal Plan of Care Note [code = 67664-6] Goal Plan of Care Note [code = 05173-3] Goal Plan of Care Note [code = 63493-2] Goal Plan of Care Note [code = 06351-1] Goal Plan of Care Note [code = 57853-8] Goal Plan of Care Note [code = 85053-9] Goal Plan of Care Note [code = 53963-8] Goal Plan of Care Note [code = 58610-3] Goal Plan of Care Note [code = 49237-0] Goal Plan of Care Note [code = 95629-8] Goal Plan of Care Note [code = 25038-6] Goal Plan of Care Note [code = 75703-8] Goal Plan of Care Note [code = 77651-4] Encounters Start End Encounter Admission Attending Care Care Encounter Source Date/Time Date/Time Type Type Clinicians Facility Department ID 2021-06-21 Emergency [facility] [id number] Univers 15:21:52 [facility] 2022-07-31 2022-07-31 Outpatient ESTHELA SFA [id number] Jaquan Chand 16:34:25 16:34:25 1208 F Robert 2022-07-31 2022-07-31 Outpatient [id number] 00:00:00 00:00:00 Visit n3p2-9c5n 2o9-6j0r-j -p5vz-5z2 3ae-3c1a02 m01zmeq58 aaaa32 2022-05-15 2022-05-15 Outpatient [id number] 00:00:00 00:00:00 Visit 2y7h-61z4 v3g-34i9-3 -87bc-f50 7bc-f50a4d [id number] 2022-03-04 2022-03-04 Outpatient [facility] [address] 04:39:00 04:39:00 HN 0712 [facility] Program 2022-02-25 2022-02-25 Outpatient [id number] 00:00:00 00:00:00 Visit [id number] ac8-4912-a -fx1c-p1k n7c-s7yy51 [id number] 08c85c 2021-03-05 2021-03-05 Outpatient ROBERTH [facility] [id number] Univers 15:00:00 15:00:00 CHARISSE [id number] [facility] 2021-03-05 2021-03-05 Outpatient Melinda LEPE [facility] [id number] Univers 00:00:00 00:00:00 CHARISSE patton [facility] [place] [facility] 2021-02-07 2021-02-07 Outpatient Melinda LEPE [facility] [id number] Univers 00:00:00 00:00:00 CHARISSE Ring617 [facility] 2021-02-07 2021-02-07 Outpatient R ROBERTH, [facility] [id number] Univers 00:00:00 00:00:00 CHARISSE [place] [facility] [place] [facility] 2020-10-02 2020-10-02 Outpatient R LEDY, [facility] [id number] Univers 16:20:00 16:20:00 CABRERA [id number] pooja [facility] [place] [facility] 2020-04-24 2020-04-24 Emergency [facility] [id number] 16:30:00 17:27:00 Kathryn Melinda Anthony [id number] [place] [id number] [place] [id number] 2020-04-24 2020-04-24 Emergency [facility] [id number] [facility] 16:30:00 17:27:00 Kathryn Melinda WhelanHopkins [id number] i ty of [place] [address].2.[address] [facility] [id number] [address] Results Test Description Test Time Test Comments Results Result Comments Source FREE T4 (THYROXINE) 2021-11-07 04:32:21 Test Item Value Reference Range Interpretation Comme nts FREE T4 (THYROXINE) (test code 1.00 NG/DL 0.80-1.90 UNLESS OTHERWISE INDICATED, ALL = 2823) TESTING PERFORM ED [facility]. [address] [place] [address] LABORATORY DIRE CTOR: SERENE MOY M.D. CLIA NUMBER [id number] [facility] [place]. [id number] FREE T4 (THYROXINE)2021-11-07 00:00:00 Test Item Value Reference Range Interpretation Comments FREE T4 (THYROXINE) (test code = 1.00 NG/DL 2823) FREE T4 (THYROXINE)2021-11-07 00:00:00 Test Item Value Reference Range Interpretation Comments FREE T4 (THYROXINE) (test code = 1.00 NG/DL 2823) FREE T4 (THYROXINE)2021-11-07 00:00:00 Test Item Value Reference Range Interpretation Comments FREE T4 (THYROXINE) (test code = 1.00 NG/DL 2823) FREE T4 (THYROXINE)2021-11-07 00:00:00 Test Item Value Reference Range Interpretation Comments FREE T4 (THYROXINE) (test code = 1.00 NG/DL 2823) FREE T4 (THYROXINE)2021-11-07 00:00:00 Test Item Value Reference Range Interpretation Comments FREE T4 (THYROXINE) (test code = 1.00 NG/DL 2823) FREE T4 (THYROXINE)2021-11-07 00:00:00 Test Item Value Reference Range Interpretation Comments FREE T4 (THYROXINE) (test code = 1.00 NG/DL 2823) FREE T4 (THYROXINE)2021-11-07 00:00:00 Test Item Value Reference Range Interpretation Comments FREE T4 (THYROXINE) (test code = 1.00 NG/DL 2823) FREE T4 (THYROXINE)2021-11-07 00:00:00 Test Item Value Reference Range Interpretation Comments FREE T4 (THYROXINE) (test code = 1.00 NG/DL 2823) TSH, THIRD [id number] 05:45:14 Test Item Value Reference Range Interpretation Comments TSH, THIRD <0.010 UIU/ML 0.400-4.100 L UNLESS OTHERW ISE GENERATION (test INDICATED, ALL code = 2821) TESTING PERFORM [facility]. [address] [place] [address] [facility] DIRECTOR: SERENE MOY M.D. CLIA NUMBER [id number] [facility] N O. [id number] 00:00:00 Test Item Value Reference Range Interpretation Comments TSH, THIRD GENERATION (test <0.010 UIU/ML code = 2821) [id number] 00:00:00 Test Item Value Reference Range Interpretation Comments TSH, THIRD GENERATION (test <0.010 UIU/ML code = 2821) [id number] 00:00:00 Test Item Value Reference Range Interpretation Comments TSH, THIRD GENERATION (test <0.010 UIU/ML code = 2821) [id number] 00:00:00 Test Item Value Reference Range Interpretation Comments TSH, THIRD GENERATION (test <0.010 UIU/ML code = 2821) [id number] 00:00:00 Test Item Value Reference Range Interpretation Comments TSH, THIRD GENERATION (test <0.010 UIU/ML code = 2821) [id number] 00:00:00 Test Item Value Reference Range Interpretation Comments TSH, THIRD GENERATION (test <0.010 UIU/ML code = 2821) [id number] 00:00:00 Test Item Value Reference Range Interpretation Comments TSH, THIRD GENERATION (test <0.010 UIU/ML code = 2821) [id number] 00:00:00 Test Item Value Reference Range Interpretation Comments TSH, THIRD GENERATION (test <0.010 UIU/ML code = 2821) VAGINAL PATHOGENS DNA [id number] 08:24:47 Test Item Value Reference Range Interpretation Comments SUBHASH SPECIES TEST NOT NEGATIVE NO SPECIMEN (test code = PERFORMED RECEIVED FOR ) TESTING. CHARGE S DELETED. G. VAGINALIS TEST NOT NEGATIVE NO SPECIMEN (test code = PERFORMED RECEIVED FOR ) TESTING. CHARGE S DELETED. T. VAGINALIS TEST NOT NEGATIVE NO SPECIMEN (test code = PERFORMED RECEIVED FOR ) TESTING. CHARGE S DELETED. UNLESS OTHERWISE INDIC ATED, ALL TESTING PERFORMED [facility] PATHOLOGY [facility], [id number] [place] [address] DIRECTOR: Luis A ZULETAIA NUMBER [id number] [facility] [place] [facility] [place]. [id number] VAGINAL PATHOGENS DNA [id number] 00:00:00 Test Item Value Reference Range Interpretation Comments SUBHASH SPECIES (test code TEST NOT PERFORMED = ) G. VAGINALIS (test code = TEST NOT PERFORMED ) T. VAGINALIS (test code = TEST NOT PERFORMED ) VAGINAL PATHOGENS DNA [id number] 00:00:00 Test Item Value Reference Range Interpretation Comments SUBHASH SPECIES (test code TEST NOT PERFORMED = ) G. VAGINALIS (test code = TEST NOT PERFORMED ) T. VAGINALIS (test code = TEST NOT PERFORMED ) VAGINAL PATHOGENS DNA [id number] 00:00:00 Test Item Value Reference Range Interpretation Comments SUBHASH SPECIES (test code TEST NOT PERFORMED = ) G. VAGINALIS (test code = TEST NOT PERFORMED ) T. VAGINALIS (test code = TEST NOT PERFORMED ) VAGINAL PATHOGENS DNA [id number] 00:00:00 Test Item Value Reference Range Interpretation Comments SUBHASH SPECIES (test code TEST NOT PERFORMED = ) G. VAGINALIS (test code = TEST NOT PERFORMED ) T. VAGINALIS (test code = TEST NOT PERFORMED ) VAGINAL PATHOGENS DNA [id number] 00:00:00 Test Item Value Reference Range Interpretation Comments SUBHASH SPECIES (test code TEST NOT PERFORMED = ) G. VAGINALIS (test code = TEST NOT PERFORMED ) T. VAGINALIS (test code = TEST NOT PERFORMED ) LIPID [id number] 03:48:14 Test Item Value Reference Range Interpretation [...] MOREINFORMATION , SEE CLIENT ANNOUNCE MENT AT [email or web address] /CalcLDL-C RISK RATIO LDL/HDL 2.22 RATIO <3.22 (test code = 2238) COMPREHENSIVE METABOLIC [id number] 03:48:14 Test Item Value Reference Range Interpretation Comments GLUCOSE (test code = 82 MG/DL 70-99 2216) BUN (test code = 14 MG/DL 6-20 2207) CREATININE (test 0.67 MG/DL 0.60-1.30 code = 2214) eGFR (2020 CKD-EPI) 116 >60 (test code = 81031) ML/MIN/1.73 CALC BUN/CREAT (test 21 RATIO 6-28 code = 2235) SODIUM (test code = 140 MEQ/L [phone]) POTASSIUM (test code 4.3 MEQ/L 3.5-5.4 = 2227) CHLORIDE (test code 106 MEQ/L 95-107 = 2214) CARBON DIOXIDE (test 23 MEQ/L 19-31 code = 2206) CALCIUM (test code = 9.5 MG/DL 8.5-10.5 2208) PROTEIN, TOTAL (test 8.2 G/DL 6.1-8.3 code = 2229) ALBUMIN (test code = 4.3 G/DL 3.5-5.2 2200) CALC GLOBULIN (test 3.9 G/DL 1.9-3.7 H code = 2240) CALC A/G RATIO (test 1.1 RATIO 1.0-2.6 code = 2234) BILIRUBIN, TOTAL 0.2 MG/DL See_Comment [Automated message] [...] = 14 U/L 5-40 2218) HEPATIC FUNCTION [id number] 03:48:14 Test Item Value Reference Range Interpretation Comments PROTEIN, TOTAL (test 8.2 G/DL 6.1-8.3 code = 2228) ALBUMIN (test code = 4.3 G/DL 3.5-5.2 2200) BILIRUBIN, TOTAL (test 0.2 MG/DL See_Comment [Aut omated message] code = 2207) The system [email or web address] generated this result transmitted ref erence range: <=1.2. T he reference range was not used to int erpret this result as normal/abnormal . BILIRUBIN, DIRECT 0.1 MG/DL 0.0-0.3 (test code = 2021) ALKALINE PHOSPHATASE 140 U/L 40-112 H (test code = 2203) AST (test code = 2217) 17 U/L 9-40 ALT (test code = 9) 14 U/L 5-40 HEMOGLOBIN [id number] 03:35:24 Test Item Value Reference Range Interpretation Comments HEMOGLOBIN A1c (test code = 76973) 5.5 % 4.2-5.6 CBC W/AUTO DIFF WITH [id number] 03:06:39 Test Item Value Reference Range Interpretation [...] = 1036) NUCLEATED RBCS (test 0.0 /100 WBC'S See_Comment [Aut omated code = 1065) message] The sy stem which generated this [...] RBCS 0.00 K/UL 0.00-0.11 (test code = 12501) CBC W/AUTO [id number] 00:00:00 Test Item Value Reference Range Interpretation Comments WBC (test code = 1001) 7.5 K/UL RBC (test code = 1002) 4.72 M/UL HEMOGLOBIN (test code = 1003) 13.9 G/DL HEMATOCRIT (test code = 1004) 40.6 % MCV (test code = 1005) 86.0 fL MCH (test code = 1006) 29.4 PG MCHC (test code = 1007) 34.2 G/DL RDW (test code = 1038) 13.1 % NEUTROPHILS (test code = 1008) 51.1 % LYMPHOCYTES (test code = 1010) 39.1 % MONOCYTES (test code = 1011) 6.3 % EOSINOPHILS (test code = 1012) 2.4 % BASOPHILS (test code = 1013) 0.7 % IMMATURE GRANULOCYTES (test 0.4 % code = 1036) NUCLEATED RBCS (test code = 0.0 /100WBC'S 1065) PLATELET COUNT (test code = 243 K/UL 1015) ABSOLUTE NEUTROPHILS (test code 3.84 K/UL = 1066) ABSOLUTE LYMPHOCYTES (test code 2.93 K/UL = 1067) ABSOLUTE MONOCYTES (test code = 0.47 K/UL 1068) ABSOLUTE EOSINOPHILS (test code 0.18 K/UL = 1040) ABSOLUTE BASOPHILS (test code = 0.05 K/UL 1069) ABS IMMATURE GRANULOCYTES (test 0.03 K/UL code = 1020) ABS NUCLEATED RBCS (test code = 0.00 K/UL 49902) CBC W/AUTO [id number] 00:00:00 Test Item Value Reference Range Interpretation Comments WBC (test code = 1001) 7.5 K/UL RBC (test code = 1002) 4.72 M/UL HEMOGLOBIN (test code = 1003) 13.9 G/DL HEMATOCRIT (test code = 1004) 40.6 % MCV (test code = 1005) 86.0 fL MCH (test code = 1006) 29.4 PG MCHC (test code = 1007) 34.2 G/DL RDW (test code = 1038) 13.1 % NEUTROPHILS (test code = 1008) 51.1 % LYMPHOCYTES (test code = 1010) 39.1 % MONOCYTES (test code = 1011) 6.3 % EOSINOPHILS (test code = 1012) 2.4 % BASOPHILS (test code = 1013) 0.7 % IMMATURE GRANULOCYTES (test 0.4 % code = 1036) NUCLEATED RBCS (test code = 0.0 /100WBC'S 1065) PLATELET COUNT (test code = 243 K/UL 1015) ABSOLUTE NEUTROPHILS (test code 3.84 K/UL = 1066) ABSOLUTE LYMPHOCYTES (test code 2.93 K/UL = 1067) ABSOLUTE MONOCYTES (test code = 0.47 K/UL 1068) ABSOLUTE EOSINOPHILS (test code 0.18 K/UL = 1040) ABSOLUTE BASOPHILS (test code = 0.05 K/UL 1069) ABS IMMATURE GRANULOCYTES (test 0.03 K/UL code = 1020) ABS NUCLEATED RBCS (test code = 0.00 K/UL 43876) CBC W/AUTO [id number] 00:00:00 Test Item Value Reference Range Interpretation Comments WBC (test code = 1001) 7.5 K/UL RBC (test code = 1002) 4.72 M/UL HEMOGLOBIN (test code = 1003) 13.9 G/DL HEMATOCRIT (test code = 1004) 40.6 % MCV (test code = 1005) 86.0 fL MCH (test code = 1006) 29.4 PG MCHC (test code = 1007) 34.2 G/DL RDW (test code = 1038) 13.1 % NEUTROPHILS (test code = 1008) 51.1 % LYMPHOCYTES (test code = 1010) 39.1 % MONOCYTES (test code = 1011) 6.3 % EOSINOPHILS (test code = 1012) 2.4 % BASOPHILS (test code = 1013) 0.7 % IMMATURE GRANULOCYTES (test 0.4 % code = 1036) NUCLEATED RBCS (test code = 0.0 /100WBC'S 1065) PLATELET COUNT (test code = 243 K/UL 1015) ABSOLUTE NEUTROPHILS (test code 3.84 K/UL = 1066) ABSOLUTE LYMPHOCYTES (test code 2.93 K/UL = 1067) ABSOLUTE MONOCYTES (test code = 0.47 K/UL 1068) ABSOLUTE EOSINOPHILS (test code 0.18 K/UL = 1040) ABSOLUTE BASOPHILS (test code = 0.05 K/UL 1069) ABS IMMATURE GRANULOCYTES (test 0.03 K/UL code = 1020) ABS NUCLEATED RBCS (test code = 0.00 K/UL 07887) HEMOGLOBIN [id number] 00:00:00 Test Item Value Reference Range Interpretation Comments HEMOGLOBIN A1c (test code = 49704) 5.5 % HEMOGLOBIN [id number] 00:00:00 Test Item Value Reference Range Interpretation Comments HEMOGLOBIN A1c (test code = 61559) 5.5 % HEMOGLOBIN [id number] 00:00:00 Test Item Value Reference Range Interpretation Comments HEMOGLOBIN A1c (test code = 08267) 5.5 % LIPID [id number] 00:00:00 Test Item Value Reference Range Interpretation Comments CHOLESTEROL (test code = 2210) 146 MG/DL TRIGLYCERIDES (test code = 2232) 54 MG/DL HDL CHOLESTEROL (test code = 2220) 41 MG/DL CALC LDL CHOL (test code = 2237) 91 MG/DL RISK RATIO LDL/HDL (test code = 2.22 RATIO 2238) LIPID [id number] 00:00:00 Test Item Value Reference Range Interpretation Comments CHOLESTEROL (test code = 2210) 146 MG/DL TRIGLYCERIDES (test code = 2232) 54 MG/DL HDL CHOLESTEROL (test code = 2220) 41 MG/DL CALC LDL CHOL (test code = 2237) 91 MG/DL RISK RATIO LDL/HDL (test code = 2.22 RATIO 2238) COMPREHENSIVE METABOLIC [id number] 00:00:00 Test Item Value Reference Range Interpretation Comments GLUCOSE (test code = 2217) 82 MG/DL BUN (test code = 2208) 14 MG/DL CREATININE (test code = 2214) 0.67 MG/DL eGFR (2020 CKD-EPI) (test 116 ML/MIN/1.73 code = 65998) CALC BUN/CREAT (test code = 21 RATIO 2235) SODIUM (test code = 2231) 140 MEQ/L POTASSIUM (test code = 2228) 4.3 MEQ/L CHLORIDE (test code = 2215) 106 MEQ/L CARBON DIOXIDE (test code = 23 MEQ/L 2205) CALCIUM (test code = 2209) 9.5 MG/DL PROTEIN, TOTAL (test code = 8.2 G/DL 2228) ALBUMIN (test code = 2201) 4.3 G/DL CALC GLOBULIN (test code = 3.9 G/DL 0) CALC A/G RATIO (test code = 1.1 RATIO 2234) BILIRUBIN, TOTAL (test code = 0.2 MG/DL 2206) ALKALINE PHOSPHATASE (test 140 U/L code = 2204) AST (test code = 2218) 17 U/L ALT (test code = 2219) 14 U/L COMPREHENSIVE METABOLIC [id number] 00:00:00 Test Item Value Reference Range Interpretation Comments GLUCOSE (test code = 2217) 82 MG/DL BUN (test code = 2208) 14 MG/DL CREATININE (test code = 2214) 0.67 MG/DL eGFR (2020 CKD-EPI) (test 116 ML/MIN/1.73 code = 25563) CALC BUN/CREAT (test code = 21 RATIO 2235) SODIUM (test code = 2231) 140 MEQ/L POTASSIUM (test code = 2228) 4.3 MEQ/L CHLORIDE (test code = 2215) 106 MEQ/L CARBON DIOXIDE (test code = 23 MEQ/L 2205) CALCIUM (test code = 2209) 9.5 MG/DL PROTEIN, TOTAL (test code = 8.2 G/DL 2228) ALBUMIN (test code = 2201) 4.3 G/DL CALC GLOBULIN (test code = 3.9 G/DL 2239) CALC A/G RATIO (test code = 1.1 RATIO 2233) BILIRUBIN, TOTAL (test code = 0.2 MG/DL 2206) ALKALINE PHOSPHATASE (test 140 U/L code = 2204) AST (test code = 2218) 17 U/L ALT (test code = 2219) 14 U/L LIVER (HEPATIC) FUNCTION [id number] 00:00:00 Test Item Value Reference Range Interpretation Comments PROTEIN, TOTAL (test code = 2229) 8.2 G/DL ALBUMIN (test code = 2201) 4.3 G/DL BILIRUBIN, TOTAL (test code = 2207) 0.2 MG/DL BILIRUBIN, DIRECT (test code = 0.1 MG/DL 2021) ALKALINE PHOSPHATASE (test code = 140 U/L 2203) AST (test code = 2218) 17 U/L ALT (test code = 2219) 14 U/L LIVER (HEPATIC) FUNCTION [id number] 00:00:00 Test Item Value Reference Range Interpretation Comments PROTEIN, TOTAL (test code = 2229) 8.2 G/DL ALBUMIN (test code = 2201) 4.3 G/DL BILIRUBIN, TOTAL (test code = 2207) 0.2 MG/DL BILIRUBIN, DIRECT (test code = 0.1 MG/DL 2021) ALKALINE PHOSPHATASE (test code = 140 U/L 2203) AST (test code = 2218) 17 U/L ALT (test code = 2219) 14 U/L CBC W/AUTO [id number] 00:00:00 Test Item Value Reference Range Interpretation Comments WBC (test code = 1001) 7.5 K/UL RBC (test code = 1002) 4.72 M/UL HEMOGLOBIN (test code = 1003) 13.9 G/DL HEMATOCRIT (test code = 1004) 40.6 % MCV (test code = 1005) 86.0 fL MCH (test code = 1006) 29.4 PG MCHC (test code = 1007) 34.2 G/DL RDW (test code = 1038) 13.1 % NEUTROPHILS (test code = 1008) 51.1 % LYMPHOCYTES (test code = 1010) 39.1 % MONOCYTES (test code = 1011) 6.3 % EOSINOPHILS (test code = 1012) 2.4 % BASOPHILS (test code = 1013) 0.7 % IMMATURE GRANULOCYTES (test 0.4 % code = 1036) NUCLEATED RBCS (test code = 0.0 /100WBC'S 1065) PLATELET COUNT (test code = 243 K/UL 1015) ABSOLUTE NEUTROPHILS (test code 3.84 K/UL = 1066) ABSOLUTE LYMPHOCYTES (test code 2.93 K/UL = 1067) ABSOLUTE MONOCYTES (test code = 0.47 K/UL 1068) ABSOLUTE EOSINOPHILS (test code 0.18 K/UL = 1040) ABSOLUTE BASOPHILS (test code = 0.05 K/UL 1069) ABS IMMATURE GRANULOCYTES (test 0.03 K/UL code = 1020) ABS NUCLEATED RBCS (test code = 0.00 K/UL 09643) CBC W/AUTO [id number] 00:00:00 Test Item Value Reference Range Interpretation Comments WBC (test code = 1001) 7.5 K/UL RBC (test code = 1002) 4.72 M/UL HEMOGLOBIN (test code = 1003) 13.9 G/DL HEMATOCRIT (test code = 1004) 40.6 % MCV (test code = 1005) 86.0 fL MCH (test code = 1006) 29.4 PG MCHC (test code = 1007) 34.2 G/DL RDW (test code = 1038) 13.1 % NEUTROPHILS (test code = 1008) 51.1 % LYMPHOCYTES (test code = 1010) 39.1 % MONOCYTES (test code = 1011) 6.3 % EOSINOPHILS (test code = 1012) 2.4 % BASOPHILS (test code = 1013) 0.7 % IMMATURE GRANULOCYTES (test 0.4 % code = 1036) NUCLEATED RBCS (test code = 0.0 /100WBC'S 1065) PLATELET COUNT (test code = 243 K/UL 1015) ABSOLUTE NEUTROPHILS (test code 3.84 K/UL = 1066) ABSOLUTE LYMPHOCYTES (test code 2.93 K/UL = 1067) ABSOLUTE MONOCYTES (test code = 0.47 K/UL 1068) ABSOLUTE EOSINOPHILS (test code 0.18 K/UL = 1040) ABSOLUTE BASOPHILS (test code = 0.05 K/UL 1069) ABS IMMATURE GRANULOCYTES (test 0.03 K/UL code = 1020) ABS NUCLEATED RBCS (test code = 0.00 K/UL 76815) CBC W/AUTO [id number] 00:00:00 Test Item Value Reference Range Interpretation Comments WBC (test code = 1001) 7.5 K/UL RBC (test code = 1002) 4.72 M/UL HEMOGLOBIN (test code = 1003) 13.9 G/DL HEMATOCRIT (test code = 1004) 40.6 % MCV (test code = 1005) 86.0 fL MCH (test code = 1006) 29.4 PG MCHC (test code = 1007) 34.2 G/DL RDW (test code = 1038) 13.1 % NEUTROPHILS (test code = 1008) 51.1 % LYMPHOCYTES (test code = 1010) 39.1 % MONOCYTES (test code = 1011) 6.3 % EOSINOPHILS (test code = 1012) 2.4 % BASOPHILS (test code = 1013) 0.7 % IMMATURE GRANULOCYTES (test 0.4 % code = 1036) NUCLEATED RBCS (test code = 0.0 /100WBC'S 1065) PLATELET COUNT (test code = 243 K/UL 1015) ABSOLUTE NEUTROPHILS (test code 3.84 K/UL = 1066) ABSOLUTE LYMPHOCYTES (test code 2.93 K/UL = 1067) ABSOLUTE MONOCYTES (test code = 0.47 K/UL 1068) ABSOLUTE EOSINOPHILS (test code 0.18 K/UL = 1040) ABSOLUTE BASOPHILS (test code = 0.05 K/UL 1069) ABS IMMATURE GRANULOCYTES (test 0.03 K/UL code = 1020) ABS NUCLEATED RBCS (test code = 0.00 K/UL 70367) CBC W/AUTO [id number] 00:00:00 Test Item Value Reference Range Interpretation Comments WBC (test code = 1001) 7.5 K/UL RBC (test code = 1002) 4.72 M/UL HEMOGLOBIN (test code = 1003) 13.9 G/DL HEMATOCRIT (test code = 1004) 40.6 % MCV (test code = 1005) 86.0 fL MCH (test code = 1006) 29.4 PG MCHC (test code = 1007) 34.2 G/DL RDW (test code = 1038) 13.1 % NEUTROPHILS (test code = 1008) 51.1 % LYMPHOCYTES (test code = 1010) 39.1 % MONOCYTES (test code = 1011) 6.3 % EOSINOPHILS (test code = 1012) 2.4 % BASOPHILS (test code = 1013) 0.7 % IMMATURE GRANULOCYTES (test 0.4 % code = 1036) NUCLEATED RBCS (test code = 0.0 /100WBC'S 1065) PLATELET COUNT (test code = 243 K/UL 1015) ABSOLUTE NEUTROPHILS (test code 3.84 K/UL = 1066) ABSOLUTE LYMPHOCYTES (test code 2.93 K/UL = 1067) ABSOLUTE MONOCYTES (test code = 0.47 K/UL 1068) ABSOLUTE EOSINOPHILS (test code 0.18 K/UL = 1040) ABSOLUTE BASOPHILS (test code = 0.05 K/UL 1069) ABS IMMATURE GRANULOCYTES (test 0.03 K/UL code = 1020) ABS NUCLEATED RBCS (test code = 0.00 K/UL 77499) HEMOGLOBIN [id number] 00:00:00 Test Item Value Reference Range Interpretation Comments HEMOGLOBIN A1c (test code = 77175) 5.5 % HEMOGLOBIN [id number] 00:00:00 Test Item Value Reference Range Interpretation Comments HEMOGLOBIN A1c (test code = 93844) 5.5 % HEMOGLOBIN [id number] 00:00:00 Test Item Value Reference Range Interpretation Comments HEMOGLOBIN A1c (test code = 92872) 5.5 % LIPID [id number] 00:00:00 Test Item Value Reference Range Interpretation Comments CHOLESTEROL (test code = 2210) 146 MG/DL TRIGLYCERIDES (test code = 2232) 54 MG/DL HDL CHOLESTEROL (test code = 2220) 41 MG/DL CALC LDL CHOL (test code = 2237) 91 MG/DL RISK RATIO LDL/HDL (test code = 2.22 RATIO 2238) LIPID [id number] 00:00:00 Test Item Value Reference Range Interpretation Comments CHOLESTEROL (test code = 2210) 146 MG/DL TRIGLYCERIDES (test code = 2232) 54 MG/DL HDL CHOLESTEROL (test code = 2220) 41 MG/DL CALC LDL CHOL (test code = 2237) 91 MG/DL RISK RATIO LDL/HDL (test code = 2.22 RATIO 2238) COMPREHENSIVE METABOLIC [id number] 00:00:00 Test Item Value Reference Range Interpretation Comments GLUCOSE (test code = 2217) 82 MG/DL BUN (test code = 2208) 14 MG/DL CREATININE (test code = 2214) 0.67 MG/DL eGFR (2020 CKD-EPI) (test 116 ML/MIN/1.73 code = 99774) CALC BUN/CREAT (test code = 21 RATIO 2235) SODIUM (test code = 2231) 140 MEQ/L POTASSIUM (test code = 2228) 4.3 MEQ/L CHLORIDE (test code = 2215) 106 MEQ/L CARBON DIOXIDE (test code = 23 MEQ/L 2205) CALCIUM (test code = 2209) 9.5 MG/DL PROTEIN, TOTAL (test code = 8.2 G/DL 2228) ALBUMIN (test code = 2201) 4.3 G/DL CALC GLOBULIN (test code = 3.9 G/DL 2240) CALC A/G RATIO (test code = 1.1 RATIO 2234) BILIRUBIN, TOTAL (test code = 0.2 MG/DL 2207) ALKALINE PHOSPHATASE (test 140 U/L code = 2204) AST (test code = 2218) 17 U/L ALT (test code = 2219) 14 U/L COMPREHENSIVE METABOLIC [id number] 00:00:00 Test Item Value Reference Range Interpretation Comments GLUCOSE (test code = 2217) 82 MG/DL BUN (test code = 2208) 14 MG/DL CREATININE (test code = 2214) 0.67 MG/DL eGFR (2020 CKD-EPI) (test 116 ML/MIN/1.73 code = 07382) CALC BUN/CREAT (test code = 21 RATIO 2235) SODIUM (test code = 2231) 140 MEQ/L POTASSIUM (test code = 2228) 4.3 MEQ/L CHLORIDE (test code = 2215) 106 MEQ/L CARBON DIOXIDE (test code = 23 MEQ/L 2205) CALCIUM (test code = 2209) 9.5 MG/DL PROTEIN, TOTAL (test code = 8.2 G/DL 2228) ALBUMIN (test code = 2201) 4.3 G/DL CALC GLOBULIN (test code = 3.9 G/DL 2239) CALC A/G RATIO (test code = 1.1 RATIO 2233) BILIRUBIN, TOTAL (test code = 0.2 MG/DL 2206) ALKALINE PHOSPHATASE (test 140 U/L code = 2204) AST (test code = 2218) 17 U/L ALT (test code = 2219) 14 U/L LIVER (HEPATIC) FUNCTION [id number] 00:00:00 Test Item Value Reference Range Interpretation Comments PROTEIN, TOTAL (test code = 2229) 8.2 G/DL ALBUMIN (test code = 2201) 4.3 G/DL BILIRUBIN, TOTAL (test code = 2207) 0.2 MG/DL BILIRUBIN, DIRECT (test code = 0.1 MG/DL 2021) ALKALINE PHOSPHATASE (test code = 140 U/L 2203) AST (test code = 2218) 17 U/L ALT (test code = 2219) 14 U/L LIVER (HEPATIC) FUNCTION [id number] 00:00:00 Test Item Value Reference Range Interpretation Comments PROTEIN, TOTAL (test code = 2229) 8.2 G/DL ALBUMIN (test code = 2201) 4.3 G/DL BILIRUBIN, TOTAL (test code = 2207) 0.2 MG/DL BILIRUBIN, DIRECT (test code = 0.1 MG/DL 2021) ALKALINE PHOSPHATASE (test code = 140 U/L 2203) AST (test code = 2218) 17 U/L ALT (test code = 2219) 14 U/L CBC W/AUTO [id number] 00:00:00 Test Item Value Reference Range Interpretation Comments WBC (test code = 1001) 7.5 K/UL RBC (test code = 1002) 4.72 M/UL HEMOGLOBIN (test code = 1003) 13.9 G/DL HEMATOCRIT (test code = 1004) 40.6 % MCV (test code = 1005) 86.0 fL MCH (test code = 1006) 29.4 PG MCHC (test code = 1007) 34.2 G/DL RDW (test code = 1038) 13.1 % NEUTROPHILS (test code = 1008) 51.1 % LYMPHOCYTES (test code = 1010) 39.1 % MONOCYTES (test code = 1011) 6.3 % EOSINOPHILS (test code = 1012) 2.4 % BASOPHILS (test code = 1013) 0.7 % IMMATURE GRANULOCYTES (test 0.4 % code = 1036) NUCLEATED RBCS (test code = 0.0 /100WBC'S 1065) PLATELET COUNT (test code = 243 K/UL 1015) ABSOLUTE NEUTROPHILS (test code 3.84 K/UL = 1066) ABSOLUTE LYMPHOCYTES (test code 2.93 K/UL = 1067) ABSOLUTE MONOCYTES (test code = 0.47 K/UL 1068) ABSOLUTE EOSINOPHILS (test code 0.18 K/UL = 1040) ABSOLUTE BASOPHILS (test code = 0.05 K/UL 1069) ABS IMMATURE GRANULOCYTES (test 0.03 K/UL code = 1020) ABS NUCLEATED RBCS (test code = 0.00 K/UL 10646) HEMOGLOBIN [id number] 00:00:00 Test Item Value Reference Range Interpretation Comments HEMOGLOBIN A1c (test code = 27732) 5.5 % HEMOGLOBIN [id number] 00:00:00 Test Item Value Reference Range Interpretation Comments HEMOGLOBIN A1c (test code = 54662) 5.5 % LIPID [id number] 00:00:00 Test Item Value Reference Range Interpretation Comments CHOLESTEROL (test code = 2210) 146 MG/DL TRIGLYCERIDES (test code = 2232) 54 MG/DL HDL CHOLESTEROL (test code = 2220) 41 MG/DL CALC LDL CHOL (test code = 2237) 91 MG/DL RISK RATIO LDL/HDL (test code = 2.22 RATIO 2238) COMPREHENSIVE METABOLIC [id number] 00:00:00 Test Item Value Reference Range Interpretation Comments GLUCOSE (test code = 2217) 82 MG/DL BUN (test code = 2208) 14 MG/DL CREATININE (test code = 2214) 0.67 MG/DL eGFR (2020 CKD-EPI) (test 116 ML/MIN/1.73 code = 52148) CALC BUN/CREAT (test code = 21 RATIO 2235) SODIUM (test code = 2231) 140 MEQ/L POTASSIUM (test code = 2228) 4.3 MEQ/L CHLORIDE (test code = 2215) 106 MEQ/L CARBON DIOXIDE (test code = 23 MEQ/L 2205) CALCIUM (test code = 2209) 9.5 MG/DL PROTEIN, TOTAL (test code = 8.2 G/DL 2228) ALBUMIN (test code = 2201) 4.3 G/DL CALC GLOBULIN (test code = 3.9 G/DL 2239) CALC A/G RATIO (test code = 1.1 RATIO 2233) BILIRUBIN, TOTAL (test code = 0.2 MG/DL 2206) ALKALINE PHOSPHATASE (test 140 U/L code = 2204) AST (test code = 2218) 17 U/L ALT (test code = 2219) 14 U/L LIVER (HEPATIC) FUNCTION [id number] 00:00:00 Test Item Value Reference Range Interpretation Comments PROTEIN, TOTAL (test code = 2229) 8.2 G/DL ALBUMIN (test code = 2201) 4.3 G/DL BILIRUBIN, TOTAL (test code = 2206) 0.2 MG/DL BILIRUBIN, DIRECT (test code = 0.1 MG/DL 2021) ALKALINE PHOSPHATASE (test code = 140 U/L 2203) AST (test code = 2218) 17 U/L ALT (test code = 2219) 14 U/L PAP TEST, THINPREP, [id number] 00:00:00 Test Item Value Reference Range Interpretation Comments SOURCE: (test code = Cervical/Endocervical 8001) SLIDES: (test code = 1 8011) LMP: (test code = 8021) 2015 SPECIMEN ADEQUACY: (test (NOTE) code = 59150) INTERPRETATION: (test NILM/NO EPITH. code = 38193) ABNORMALITY;SEE BELOW TOOL DESIGNER: (test JONAH Aguillon code = 8101) TABATHA RESENDIZ(ASCP) QC TECHNOLOGIST: (test Perla code = 8111) YELENA Hernandez(ASCP)CT(IA C) LOCATION: (test code = (NOTE) 20350) CPT: (test code = 8140) (NOTE) PAP TEST, THINPREP, [id number] 00:00:00 Test Item Value Reference Range Interpretation Comments SOURCE: (test code = Cervical/Endocervical 8001) SLIDES: (test code = 1 8011) LMP: (test code = 8021) 2016 SPECIMEN ADEQUACY: (test (NOTE) code = 31439) INTERPRETATION: (test NILM/NO EPITH. code = 60309) ABNORMALITY;SEE BELOW TOOL DESIGNER: (test JONAH G. code = 8101) TABATHA RESENDIZ(ASCP) QC TECHNOLOGIST: (test Perla code = 8111) MarySCT(ASCP)CT(IA C) LOCATION: (test code = (NOTE) 32854) CPT: (test code = 8140) (NOTE) PAP TEST, THINPREP, [id number] 00:00:00 Test Item Value Reference Range Interpretation Comments SOURCE: (test code = Cervical/Endocervical 8001) SLIDES: (test code = 1 8011) LMP: (test code = 8021) 2015 SPECIMEN ADEQUACY: (test (NOTE) code = 45282) INTERPRETATION: (test NILM/NO EPITH. code = 47046) ABNORMALITY;SEE BELOW TOOL DESIGNER: (test JONAH G. code = 8101) TABATHA RESENDIZ(ASCP) QC TECHNOLOGIST: (test Perla code = 8111) MarySCT(ASCP)CT(IA C) LOCATION: (test code = (NOTE) 71070) CPT: (test code = 8140) (NOTE) PAP TEST, THINPREP, [id number] 00:00:00 Test Item Value Reference Range Interpretation Comments SOURCE: (test code = Cervical/Endocervical 8001) SLIDES: (test code = 1 8011) LMP: (test code = 8021) 2015 SPECIMEN ADEQUACY: (test (NOTE) code = 46773) INTERPRETATION: (test NILM/NO EPITH. code = 25706) ABNORMALITY;SEE BELOW TOOL DESIGNER: (test JONAH G. code = 8101) TABATHA RESENDIZ(ASCP) QC TECHNOLOGIST: (test Perla code = 8111) MarySCT(ASCP)CT(IA C) LOCATION: (test code = (NOTE) 08809) CPT: (test code = 8140) (NOTE) PAP TEST, THINPREP, [id number] 00:00:00 Test Item Value Reference Range Interpretation Comments SOURCE: (test code = Cervical/Endocervical 8001) SLIDES: (test code = 1 8011) LMP: (test code = 8021) 2016 SPECIMEN ADEQUACY: (test (NOTE) code = 04821) INTERPRETATION: (test NILM/NO EPITH. code = 90151) ABNORMALITY;SEE BELOW TOOL DESIGNER: (test JONAH Aguillon code = 8101) MARTÍNCT(ASCP) QC TECHNOLOGIST: (test Perla code = 8111) YELENA Hernandez(ASCP)CT(IA C) LOCATION: (test code = (NOTE) 58347) CPT: (test code = 8140) (NOTE) VAGINAL PATHOGENS DNA [id number] 00:00:00 Test Item Value Reference Range Interpretation Comments SUBHASH SPECIES (test code = ) NEGATIVE G. VAGINALIS (test code = 09070) POSITIVE T. VAGINALIS (test code = 03924) NEGATIVE VAGINAL PATHOGENS DNA [id number] 00:00:00 Test Item Value Reference Range Interpretation Comments SUBHASH SPECIES (test code = ) NEGATIVE G. VAGINALIS (test code = 92164) POSITIVE T. VAGINALIS (test code = 62986) NEGATIVE HPV HIGH RISK WITH GENOTYPE, [id number] 00:00:00 Test Item Value Reference Range Interpretation Comments HPV HIGH RISK INTERP (test code = NEGATIVE 48910) HPV 16 (test code = 98348) NEGATIVE HPV 18 (test code = 32358) NEGATIVE HPV, HR, OTHER GENOTYPES (test code NEGATIVE = 99265) HPV HIGH RISK WITH GENOTYPE, [id number] 00:00:00 Test Item Value Reference Range Interpretation Comments HPV HIGH RISK INTERP (test code = NEGATIVE 30006) HPV 16 (test code = 81313) NEGATIVE HPV 18 (test code = 62283) NEGATIVE HPV, HR, OTHER GENOTYPES (test code NEGATIVE = 79200) VAGINAL PATHOGENS DNA [id number] 00:00:00 Test Item Value Reference Range Interpretation Comments SUBHASH SPECIES (test code = ) NEGATIVE G. VAGINALIS (test code = 73581) POSITIVE T. VAGINALIS (test code = 73837) NEGATIVE VAGINAL PATHOGENS DNA [id number] 00:00:00 Test Item Value Reference Range Interpretation Comments SUBHASH SPECIES (test code = ) NEGATIVE G. VAGINALIS (test code = 83257) POSITIVE T. VAGINALIS (test code = ) NEGATIVE VAGINAL PATHOGENS DNA [id number] 00:00:00 Test Item Value Reference Range Interpretation Comments SUBHASH SPECIES (test code = ) NEGATIVE G. VAGINALIS (test code = ) POSITIVE T. VAGINALIS (test code = ) NEGATIVE HPV HIGH RISK WITH GENOTYPE, [id number] 00:00:00 Test Item Value Reference Range Interpretation Comments HPV HIGH RISK INTERP (test code = NEGATIVE 86366) HPV 16 (test code = 34794) NEGATIVE HPV 18 (test code = 17606) NEGATIVE HPV, HR, OTHER GENOTYPES (test code NEGATIVE = 84906) HPV HIGH RISK WITH GENOTYPE, [id number] 00:00:00 Test Item Value Reference Range Interpretation Comments HPV HIGH RISK INTERP (test code = NEGATIVE 04173) HPV 16 (test code = 42619) NEGATIVE HPV 18 (test code = 98359) NEGATIVE HPV, HR, OTHER GENOTYPES (test code NEGATIVE = 96677) HPV HIGH RISK WITH GENOTYPE, [id number] 00:00:00 Test Item Value Reference Range Interpretation Comments HPV HIGH RISK INTERP (test code = NEGATIVE 71250) HPV 16 (test code = 74799) NEGATIVE HPV 18 (test code = 58571) NEGATIVE HPV, HR, OTHER GENOTYPES (test code NEGATIVE = 67102) FREE T4 (THYROXINE) [ADDED]2021-02-05 00:00:00 Test Item Value Reference Range Interpretation Comments FREE T4 (THYROXINE) (test code = 1.59 NG/DL 2823) FREE T4 (THYROXINE) [ADDED]2021-02-05 00:00:00 Test Item Value Reference Range Interpretation Comments FREE T4 (THYROXINE) (test code = 1.59 NG/DL 2823) FREE T4 (THYROXINE) [ADDED]2021-02-05 00:00:00 Test Item Value Reference Range Interpretation Comments FREE T4 (THYROXINE) (test code = 1.59 NG/DL 2823) FREE T3 [ADDED]2021-02-05 00:00:00 Test Item Value Reference Range Interpretation Comments FREE T3 (test code = 4273) 4.3 PG/ML FREE T3 [ADDED]2021-02-05 00:00:00 Test Item Value Reference Range Interpretation Comments FREE T3 (test code = 4273) 4.3 PG/ML NOTE: [ADDED]2021-02-05 00:00:00 Test Item Value Reference Range Interpretation Comments NOTE: (test code = 998) (NOTE) FREE T4 (THYROXINE) [ADDED]2021-02-05 00:00:00 Test Item Value Reference Range Interpretation Comments FREE T4 (THYROXINE) (test code = 1.59 NG/DL 2823) FREE T4 (THYROXINE) [ADDED]2021-02-05 00:00:00 Test Item Value Reference Range Interpretation Comments FREE T4 (THYROXINE) (test code = 1.59 NG/DL 2823) FREE T4 (THYROXINE) [ADDED]2021-02-05 00:00:00 Test Item Value Reference Range Interpretation Comments FREE T4 (THYROXINE) (test code = 1.59 NG/DL 2823) FREE T4 (THYROXINE) [ADDED]2021-02-05 00:00:00 Test Item Value Reference Range Interpretation Comments FREE T4 (THYROXINE) (test code = 1.59 NG/DL 2823) FREE T4 (THYROXINE) [ADDED]2021-02-05 00:00:00 Test Item Value Reference Range Interpretation Comments FREE T4 (THYROXINE) (test code = 1.59 NG/DL 2823) FREE T3 [ADDED]2021-02-05 00:00:00 Test Item Value Reference Range Interpretation Comments FREE T3 (test code = 4273) 4.3 PG/ML FREE T3 [ADDED]2021-02-05 00:00:00 Test Item Value Reference Range Interpretation Comments FREE T3 (test code = 4273) 4.3 PG/ML NOTE: [ADDED]2021-02-05 00:00:00 Test Item Value Reference Range Interpretation Comments NOTE: (test code = 998) (NOTE) FREE T3 [ADDED]2021-02-05 00:00:00 Test Item Value Reference Range Interpretation Comments FREE T3 (test code = 4273) 4.3 PG/ML NOTE: [ADDED]2021-02-05 00:00:00 Test Item Value Reference Range Interpretation Comments NOTE: (test code = 998) (NOTE) CBC W/AUTO [id number] 00:00:00 Test Item Value Reference Range Interpretation Comments WBC (test code = 1001) 4.7 K/UL RBC (test code = 1002) 4.56 M/UL HEMOGLOBIN (test code = 1003) 13.8 G/DL HEMATOCRIT (test code = 1004) 39.8 % MCV (test code = 1005) 87.3 fL MCH (test code = 1006) 30.3 PG MCHC (test code = 1007) 34.7 G/DL RDW (test code = 1038) 11.7 % NEUTROPHILS (test code = 1008) 55.0 % LYMPHOCYTES (test code = 1010) 32.8 % MONOCYTES (test code = 1011) 7.3 % EOSINOPHILS (test code = 1012) 3.9 % BASOPHILS (test code = 1013) 0.6 % IMMATURE GRANULOCYTES (test 0.4 % code = 1036) NUCLEATED RBCS (test code = 0.0 /100WBC'S 1065) PLATELET COUNT (test code = 219 K/UL 1015) ABSOLUTE NEUTROPHILS (test code 2.56 K/UL = 1066) ABSOLUTE LYMPHOCYTES (test code 1.53 K/UL = 1067) ABSOLUTE MONOCYTES (test code = 0.34 K/UL 1068) ABSOLUTE EOSINOPHILS (test code 0.18 K/UL = 1040) ABSOLUTE BASOPHILS (test code = 0.03 K/UL 1069) ABS IMMATURE GRANULOCYTES (test 0.02 K/UL code = 1020) ABS NUCLEATED RBCS (test code = 0.00 K/UL 96748) CBC W/AUTO [id number] 00:00:00 Test Item Value Reference Range Interpretation Comments WBC (test code = 1001) 4.7 K/UL RBC (test code = 1002) 4.56 M/UL HEMOGLOBIN (test code = 1003) 13.8 G/DL HEMATOCRIT (test code = 1004) 39.8 % MCV (test code = 1005) 87.3 fL MCH (test code = 1006) 30.3 PG MCHC (test code = 1007) 34.7 G/DL RDW (test code = 1038) 11.7 % NEUTROPHILS (test code = 1008) 55.0 % LYMPHOCYTES (test code = 1010) 32.8 % MONOCYTES (test code = 1011) 7.3 % EOSINOPHILS (test code = 1012) 3.9 % BASOPHILS (test code = 1013) 0.6 % IMMATURE GRANULOCYTES (test 0.4 % code = 1036) NUCLEATED RBCS (test code = 0.0 /100WBC'S 1065) PLATELET COUNT (test code = 219 K/UL 1015) ABSOLUTE NEUTROPHILS (test code 2.56 K/UL = 1066) ABSOLUTE LYMPHOCYTES (test code 1.53 K/UL = 1067) ABSOLUTE MONOCYTES (test code = 0.34 K/UL 1068) ABSOLUTE EOSINOPHILS (test code 0.18 K/UL = 1040) ABSOLUTE BASOPHILS (test code = 0.03 K/UL 1069) ABS IMMATURE GRANULOCYTES (test 0.02 K/UL code = 1020) ABS NUCLEATED RBCS (test code = 0.00 K/UL 16014) CBC W/AUTO [id number] 00:00:00 Test Item Value Reference Range Interpretation Comments WBC (test code = 1001) 4.7 K/UL RBC (test code = 1002) 4.56 M/UL HEMOGLOBIN (test code = 1003) 13.8 G/DL HEMATOCRIT (test code = 1004) 39.8 % MCV (test code = 1005) 87.3 fL MCH (test code = 1006) 30.3 PG MCHC (test code = 1007) 34.7 G/DL RDW (test code = 1038) 11.7 % NEUTROPHILS (test code = 1008) 55.0 % LYMPHOCYTES (test code = 1010) 32.8 % MONOCYTES (test code = 1011) 7.3 % EOSINOPHILS (test code = 1012) 3.9 % BASOPHILS (test code = 1013) 0.6 % IMMATURE GRANULOCYTES (test 0.4 % code = 1036) NUCLEATED RBCS (test code = 0.0 /100WBC'S 1065) PLATELET COUNT (test code = 219 K/UL 1015) ABSOLUTE NEUTROPHILS (test code 2.56 K/UL = 1066) ABSOLUTE LYMPHOCYTES (test code 1.53 K/UL = 1067) ABSOLUTE MONOCYTES (test code = 0.34 K/UL 1068) ABSOLUTE EOSINOPHILS (test code 0.18 K/UL = 1040) ABSOLUTE BASOPHILS (test code = 0.03 K/UL 1069) ABS IMMATURE GRANULOCYTES (test 0.02 K/UL code = 1020) ABS NUCLEATED RBCS (test code = 0.00 K/UL 16417) LIPID [id number] 00:00:00 Test Item Value Reference Range Interpretation Comments CHOLESTEROL (test code = 2210) 141 MG/DL TRIGLYCERIDES (test code = 2232) 50 MG/DL HDL CHOLESTEROL (test code = 2220) 39 MG/DL CALC LDL CHOL (test code = 2237) 89 MG/DL RISK RATIO LDL/HDL (test code = 2.28 RATIO 2238) LIPID [id number] 00:00:00 Test Item Value Reference Range Interpretation Comments CHOLESTEROL (test code = 2210) 141 MG/DL TRIGLYCERIDES (test code = 2232) 50 MG/DL HDL CHOLESTEROL (test code = 2220) 39 MG/DL CALC LDL CHOL (test code = 2237) 89 MG/DL RISK RATIO LDL/HDL (test code = 2.28 RATIO 2238) COMPREHENSIVE METABOLIC [id number] 00:00:00 Test Item Value Reference Range Interpretation Comments GLUCOSE (test code = 2217) 91 MG/DL BUN (test code = 2208) 14 MG/DL CREATININE (test code = 2214) 0.73 MG/DL eGFR AMER. (test code 123 ML/MIN/1.73 = 20556) eGFR NON- AMER. (test 106 ML/MIN/1.73 code = 97931) CALC BUN/CREAT (test code = 19 RATIO 2235) SODIUM (test code = 2231) 140 MEQ/L POTASSIUM (test code = 2228) 4.2 MEQ/L CHLORIDE (test code = 2215) 106 MEQ/L CARBON DIOXIDE (test code = 24 MEQ/L 2206) CALCIUM (test code = 2209) 9.8 MG/DL PROTEIN, TOTAL (test code = 8.0 G/DL 2228) ALBUMIN (test code = 2201) 4.2 G/DL CALC GLOBULIN (test code = 3.8 G/DL 2240) CALC A/G RATIO (test code = 1.1 RATIO 2234) BILIRUBIN, TOTAL (test code = 0.5 MG/DL 2206) ALKALINE PHOSPHATASE (test 75 U/L code = 2204) AST (test code = 2218) 16 U/L ALT (test code = 2219) 10 U/L COMPREHENSIVE METABOLIC [id number] 00:00:00 Test Item Value Reference Range Interpretation Comments GLUCOSE (test code = 2217) 91 MG/DL BUN (test code = 2208) 14 MG/DL CREATININE (test code = 2214) 0.73 MG/DL eGFR AMER. (test code 123 ML/MIN/1.73 = 42125) eGFR NON- AMER. (test 106 ML/MIN/1.73 code = 47220) CALC BUN/CREAT (test code = 19 RATIO 2234) SODIUM (test code = 2231) 140 MEQ/L POTASSIUM (test code = 2228) 4.2 MEQ/L CHLORIDE (test code = 2215) 106 MEQ/L CARBON DIOXIDE (test code = 24 MEQ/L 2205) CALCIUM (test code = 2209) 9.8 MG/DL PROTEIN, TOTAL (test code = 8.0 G/DL 2228) ALBUMIN (test code = 2201) 4.2 G/DL CALC GLOBULIN (test code = 3.8 G/DL 2239) CALC A/G RATIO (test code = 1.1 RATIO 2233) BILIRUBIN, TOTAL (test code = 0.5 MG/DL 2206) ALKALINE PHOSPHATASE (test 75 U/L code = 220) AST (test code = 2218) 16 U/L ALT (test code = 2219) 10 U/L [id number] 00:00:00 Test Item Value Reference Range Interpretation Comments TSH, THIRD GENERATION (test code 0.013 UIU/ML = 2821) [id number] 00:00:00 Test Item Value Reference Range Interpretation Comments TSH, THIRD GENERATION (test code 0.013 UIU/ML = 2821) [id number] 00:00:00 Test Item Value Reference Range Interpretation Comments TSH, THIRD GENERATION (test code 0.013 UIU/ML = 2821) CBC W/AUTO [id number] 00:00:00 Test Item Value Reference Range Interpretation Comments WBC (test code = 1001) 4.7 K/UL RBC (test code = 1002) 4.56 M/UL HEMOGLOBIN (test code = 1003) 13.8 G/DL HEMATOCRIT (test code = 1004) 39.8 % MCV (test code = 1005) 87.3 fL MCH (test code = 1006) 30.3 PG MCHC (test code = 1007) 34.7 G/DL RDW (test code = 1038) 11.7 % NEUTROPHILS (test code = 1008) 55.0 % LYMPHOCYTES (test code = 1010) 32.8 % MONOCYTES (test code = 1011) 7.3 % EOSINOPHILS (test code = 1012) 3.9 % BASOPHILS (test code = 1013) 0.6 % IMMATURE GRANULOCYTES (test 0.4 % code = 1036) NUCLEATED RBCS (test code = 0.0 /100WBC'S 1065) PLATELET COUNT (test code = 219 K/UL 1015) ABSOLUTE NEUTROPHILS (test code 2.56 K/UL = 1066) ABSOLUTE LYMPHOCYTES (test code 1.53 K/UL = 1067) ABSOLUTE MONOCYTES (test code = 0.34 K/UL 1068) ABSOLUTE EOSINOPHILS (test code 0.18 K/UL = 1040) ABSOLUTE BASOPHILS (test code = 0.03 K/UL 1069) ABS IMMATURE GRANULOCYTES (test 0.02 K/UL code = 1020) ABS NUCLEATED RBCS (test code = 0.00 K/UL 36819) CBC W/AUTO [id number] 00:00:00 Test Item Value Reference Range Interpretation Comments WBC (test code = 1001) 4.7 K/UL RBC (test code = 1002) 4.56 M/UL HEMOGLOBIN (test code = 1003) 13.8 G/DL HEMATOCRIT (test code = 1004) 39.8 % MCV (test code = 1005) 87.3 fL MCH (test code = 1006) 30.3 PG MCHC (test code = 1007) 34.7 G/DL RDW (test code = 1038) 11.7 % NEUTROPHILS (test code = 1008) 55.0 % LYMPHOCYTES (test code = 1010) 32.8 % MONOCYTES (test code = 1011) 7.3 % EOSINOPHILS (test code = 1012) 3.9 % BASOPHILS (test code = 1013) 0.6 % IMMATURE GRANULOCYTES (test 0.4 % code = 1036) NUCLEATED RBCS (test code = 0.0 /100WBC'S 1065) PLATELET COUNT (test code = 219 K/UL 1015) ABSOLUTE NEUTROPHILS (test code 2.56 K/UL = 1066) ABSOLUTE LYMPHOCYTES (test code 1.53 K/UL = 1067) ABSOLUTE MONOCYTES (test code = 0.34 K/UL 1068) ABSOLUTE EOSINOPHILS (test code 0.18 K/UL = 1040) ABSOLUTE BASOPHILS (test code = 0.03 K/UL 1069) ABS IMMATURE GRANULOCYTES (test 0.02 K/UL code = 1020) ABS NUCLEATED RBCS (test code = 0.00 K/UL 99432) CBC W/AUTO [id number] 00:00:00 Test Item Value Reference Range Interpretation Comments WBC (test code = 1001) 4.7 K/UL RBC (test code = 1002) 4.56 M/UL HEMOGLOBIN (test code = 1003) 13.8 G/DL HEMATOCRIT (test code = 1004) 39.8 % MCV (test code = 1005) 87.3 fL MCH (test code = 1006) 30.3 PG MCHC (test code = 1007) 34.7 G/DL RDW (test code = 1038) 11.7 % NEUTROPHILS (test code = 1008) 55.0 % LYMPHOCYTES (test code = 1010) 32.8 % MONOCYTES (test code = 1011) 7.3 % EOSINOPHILS (test code = 1012) 3.9 % BASOPHILS (test code = 1013) 0.6 % IMMATURE GRANULOCYTES (test 0.4 % code = 1036) NUCLEATED RBCS (test code = 0.0 /100WBC'S 1065) PLATELET COUNT (test code = 219 K/UL 1015) ABSOLUTE NEUTROPHILS (test code 2.56 K/UL = 1066) ABSOLUTE LYMPHOCYTES (test code 1.53 K/UL = 1067) ABSOLUTE MONOCYTES (test code = 0.34 K/UL 1068) ABSOLUTE EOSINOPHILS (test code 0.18 K/UL = 1040) ABSOLUTE BASOPHILS (test code = 0.03 K/UL 1069) ABS IMMATURE GRANULOCYTES (test 0.02 K/UL code = 1020) ABS NUCLEATED RBCS (test code = 0.00 K/UL 88962) CBC W/AUTO [id number] 00:00:00 Test Item Value Reference Range Interpretation Comments WBC (test code = 1001) 4.7 K/UL RBC (test code = 1002) 4.56 M/UL HEMOGLOBIN (test code = 1003) 13.8 G/DL HEMATOCRIT (test code = 1004) 39.8 % MCV (test code = 1005) 87.3 fL MCH (test code = 1006) 30.3 PG MCHC (test code = 1007) 34.7 G/DL RDW (test code = 1038) 11.7 % NEUTROPHILS (test code = 1008) 55.0 % LYMPHOCYTES (test code = 1010) 32.8 % MONOCYTES (test code = 1011) 7.3 % EOSINOPHILS (test code = 1012) 3.9 % BASOPHILS (test code = 1013) 0.6 % IMMATURE GRANULOCYTES (test 0.4 % code = 1036) NUCLEATED RBCS (test code = 0.0 /100WBC'S 1065) PLATELET COUNT (test code = 219 K/UL 1015) ABSOLUTE NEUTROPHILS (test code 2.56 K/UL = 1066) ABSOLUTE LYMPHOCYTES (test code 1.53 K/UL = 1067) ABSOLUTE MONOCYTES (test code = 0.34 K/UL 1068) ABSOLUTE EOSINOPHILS (test code 0.18 K/UL = 1040) ABSOLUTE BASOPHILS (test code = 0.03 K/UL 1069) ABS IMMATURE GRANULOCYTES (test 0.02 K/UL code = 1020) ABS NUCLEATED RBCS (test code = 0.00 K/UL 88057) CBC W/AUTO [id number] 00:00:00 Test Item Value Reference Range Interpretation Comments WBC (test code = 1001) 4.7 K/UL RBC (test code = 1002) 4.56 M/UL HEMOGLOBIN (test code = 1003) 13.8 G/DL HEMATOCRIT (test code = 1004) 39.8 % MCV (test code = 1005) 87.3 fL MCH (test code = 1006) 30.3 PG MCHC (test code = 1007) 34.7 G/DL RDW (test code = 1038) 11.7 % NEUTROPHILS (test code = 1008) 55.0 % LYMPHOCYTES (test code = 1010) 32.8 % MONOCYTES (test code = 1011) 7.3 % EOSINOPHILS (test code = 1012) 3.9 % BASOPHILS (test code = 1013) 0.6 % IMMATURE GRANULOCYTES (test 0.4 % code = 1036) NUCLEATED RBCS (test code = 0.0 /100WBC'S 1065) PLATELET COUNT (test code = 219 K/UL 1015) ABSOLUTE NEUTROPHILS (test code 2.56 K/UL = 1066) ABSOLUTE LYMPHOCYTES (test code 1.53 K/UL = 1067) ABSOLUTE MONOCYTES (test code = 0.34 K/UL 1068) ABSOLUTE EOSINOPHILS (test code 0.18 K/UL = 1040) ABSOLUTE BASOPHILS (test code = 0.03 K/UL 1069) ABS IMMATURE GRANULOCYTES (test 0.02 K/UL code = 1020) ABS NUCLEATED RBCS (test code = 0.00 K/UL 75373) LIPID [id number] 00:00:00 Test Item Value Reference Range Interpretation Comments CHOLESTEROL (test code = 2210) 141 MG/DL TRIGLYCERIDES (test code = 2232) 50 MG/DL HDL CHOLESTEROL (test code = 2220) 39 MG/DL CALC LDL CHOL (test code = 2237) 89 MG/DL RISK RATIO LDL/HDL (test code = 2.28 RATIO 2238) LIPID [id number] 00:00:00 Test Item Value Reference Range Interpretation Comments CHOLESTEROL (test code = 2210) 141 MG/DL TRIGLYCERIDES (test code = 2232) 50 MG/DL HDL CHOLESTEROL (test code = 2220) 39 MG/DL CALC LDL CHOL (test code = 2237) 89 MG/DL RISK RATIO LDL/HDL (test code = 2.28 RATIO 2238) COMPREHENSIVE METABOLIC [id number] 00:00:00 Test Item Value Reference Range Interpretation Comments GLUCOSE (test code = 2217) 91 MG/DL BUN (test code = 2208) 14 MG/DL CREATININE (test code = 2214) 0.73 MG/DL eGFR AMER. (test code 123 ML/MIN/1.73 = 39822) eGFR NON- AMER. (test 106 ML/MIN/1.73 code = 30044) CALC BUN/CREAT (test code = 19 RATIO 2235) SODIUM (test code = 2231) 140 MEQ/L POTASSIUM (test code = 2228) 4.2 MEQ/L CHLORIDE (test code = 2215) 106 MEQ/L CARBON DIOXIDE (test code = 24 MEQ/L 220) CALCIUM (test code = 2209) 9.8 MG/DL PROTEIN, TOTAL (test code = 8.0 G/DL 2228) ALBUMIN (test code = 2201) 4.2 G/DL CALC GLOBULIN (test code = 3.8 G/DL 2240) CALC A/G RATIO (test code = 1.1 RATIO 2234) BILIRUBIN, TOTAL (test code = 0.5 MG/DL 2206) ALKALINE PHOSPHATASE (test 75 U/L code = 2204) AST (test code = 2218) 16 U/L ALT (test code = 2219) 10 U/L COMPREHENSIVE METABOLIC [id number] 00:00:00 Test Item Value Reference Range Interpretation Comments GLUCOSE (test code = 2217) 91 MG/DL BUN (test code = 2208) 14 MG/DL CREATININE (test code = 2214) 0.73 MG/DL eGFR AMER. (test code 123 ML/MIN/1.73 = 09759) eGFR NON- AMER. (test 106 ML/MIN/1.73 code = 45896) CALC BUN/CREAT (test code = 19 RATIO 2235) SODIUM (test code = 2231) 140 MEQ/L POTASSIUM (test code = 2228) 4.2 MEQ/L CHLORIDE (test code = 2215) 106 MEQ/L CARBON DIOXIDE (test code = 24 MEQ/L 2205) CALCIUM (test code = 2209) 9.8 MG/DL PROTEIN, TOTAL (test code = 8.0 G/DL 2228) ALBUMIN (test code = 220) 4.2 G/DL CALC GLOBULIN (test code = 3.8 G/DL 2239) CALC A/G RATIO (test code = 1.1 RATIO 2233) BILIRUBIN, TOTAL (test code = 0.5 MG/DL 2206) ALKALINE PHOSPHATASE (test 75 U/L code = 2204) AST (test code = 2218) 16 U/L ALT (test code = 2219) 10 U/L [id number] 00:00:00 Test Item Value Reference Range Interpretation Comments TSH, THIRD GENERATION (test code 0.013 UIU/ML = 2821) [id number] 00:00:00 Test Item Value Reference Range Interpretation Comments TSH, THIRD GENERATION (test code 0.013 UIU/ML = 2821) [id number] 00:00:00 Test Item Value Reference Range Interpretation Comments TSH, THIRD GENERATION (test code 0.013 UIU/ML = 2821) LIPID [id number] 00:00:00 Test Item Value Reference Range Interpretation Comments CHOLESTEROL (test code = 2210) 141 MG/DL TRIGLYCERIDES (test code = 2232) 50 MG/DL HDL CHOLESTEROL (test code = 2220) 39 MG/DL CALC LDL CHOL (test code = 2237) 89 MG/DL RISK RATIO LDL/HDL (test code = 2.28 RATIO 2238) COMPREHENSIVE METABOLIC [id number] 00:00:00 Test Item Value Reference Range Interpretation Comments GLUCOSE (test code = 2217) 91 MG/DL BUN (test code = 2208) 14 MG/DL CREATININE (test code = 2214) 0.73 MG/DL eGFR AMER. (test code 123 ML/MIN/1.73 = 31844) eGFR NON- AMER. (test 106 ML/MIN/1.73 code = 93611) CALC BUN/CREAT (test code = 19 RATIO 2235) SODIUM (test code = 2231) 140 MEQ/L POTASSIUM (test code = 2228) 4.2 MEQ/L CHLORIDE (test code = 2215) 106 MEQ/L CARBON DIOXIDE (test code = 24 MEQ/L 2205) CALCIUM (test code = 2209) 9.8 MG/DL PROTEIN, TOTAL (test code = 8.0 G/DL 2228) ALBUMIN (test code = 220) 4.2 G/DL CALC GLOBULIN (test code = 3.8 G/DL 2239) CALC A/G RATIO (test code = 1.1 RATIO 2233) BILIRUBIN, TOTAL (test code = 0.5 MG/DL 2206) ALKALINE PHOSPHATASE (test 75 U/L code = 220) AST (test code = 2218) 16 U/L ALT (test code = 2219) 10 U/L [id number] 00:00:00 Test Item Value Reference Range Interpretation Comments TSH, THIRD GENERATION (test code 0.013 UIU/ML = 2821) [id number] 00:00:00 Test Item Value Reference Range Interpretation Comments TSH, THIRD GENERATION (test code 0.013 UIU/ML = 2821) SARS-CoV-2 (COVID-19) by RT-PCR (HIGH RISK)2020-09-25 00:00:00 Test Item Value Reference Range Interpretation Comments SARS-CoV-2 INTERPRETATION (test NEGATIVE code = 19653) SOURCE (test code = 64758) NOT SPECIFIED SARS-CoV-2 (COVID-19) by RT-PCR (HIGH RISK)2020-09-25 00:00:00 Test Item Value Reference Range Interpretation Comments SARS-CoV-2 INTERPRETATION (test NEGATIVE code = 88906) SOURCE (test code = 42490) NOT SPECIFIED SARS-CoV-2 (COVID-19) by RT-PCR (HIGH RISK)2020-09-25 00:00:00 Test Item Value Reference Range Interpretation Comments SARS-CoV-2 INTERPRETATION (test NEGATIVE code = 82574) SOURCE (test code = 05753) NOT SPECIFIED SARS-CoV-2 (COVID-19) by RT-PCR (HIGH RISK)2020-09-25 00:00:00 Test Item Value Reference Range Interpretation Comments SARS-CoV-2 INTERPRETATION (test NEGATIVE code = 46379) SOURCE (test code = 49186) NOT SPECIFIED SARS-CoV-2 (COVID-19) by RT-PCR (HIGH RISK)2020-09-25 00:00:00 Test Item Value Reference Range Interpretation Comments SARS-CoV-2 INTERPRETATION (test NEGATIVE code = 49057) SOURCE (test code = 86492) NOT SPECIFIED [id number] 21:59:00 Test Item Value Reference Range Interpretation Comments APPEARANCE (test code = Hazy Clear A [id number]) COLOR (test code = Yellow Yellow 4968152017) PH (test code = 4.8-8.0 4056138041) SP GRAVITY (test code = 1.003-1.030 9849499299) GLU U QUAL (test code = Normal Normal 7040126958) BLOOD (test code = 2+ Negative A 5290393970) KETONES (test code = Negative Negative 6783338472) PROTEIN (test code = Negative Negative 2887-8) UROBILIN (test code = 4.0 mg/dL Normal A 4457913603) BILIRUBIN (test code = Negative Negative 0470708294) NITRITE (test code = Negative Negative 6543835866) LEUK KAIN (test code = 75/uL Negative A 0946459592) RBC/HPF (test code = See_Comment H [Autom ated message] 9053209847) The system [email or web address] generated this result transmit sandra reference range : 0 - 3 HPF. The refe rence range was not u sed to interpret th is result as normal/abnormal . WBC/HPF (test code = See_Comment H [Autom ated message] 2751105113) The system [email or web address] generated this result transmit sandra reference range : 0 - 5 HPF. The refe rence range was not u sed to interpret th is result as normal/abnormal . BACTERIA (test code = Many Negative A 5854789495) MUCOUS (test code = Marked Negative LPF A 5710188831) SQ EPITH (test code = HPF 3024519166) Lab Interpretation (test Abnormal code = 88347-1) [facility] [id number] 21:34:00 Test Item Value Reference Range Interpretation Comments POCT PREG (test code = 1605) Negative On board controls acceptable with present C Line (test code = 3574) POCT PREG LOT # (test code = 3575) [id number] POCT PREG TEST DATE (test 03/23/2021 code = 3576) Lab Interpretation (test code = Normal 66775-9) [facility] [id number] 00:00:00 Test Item Value Reference Range Interpretation Comments SOURCE: (test code = 8001) Cervical/Endocervi bruce SLIDES: (test code = 8011) 1 LMP: (test code = 8021) SPECIMEN ADEQUACY: (test (NOTE) code = 09413) INTERPRETATION: (test code LSIL/EPITH. = 85829) ABNORMALITY; SEE BELOW TOOL DESIGNER: (test Alessandro Plank,CT(ASCP) code = 8101) PATHOLOGIST INTERPRETATION Anca Parnell BY: (test code = 8122) LOCATION: (test code = (NOTE) 14281) CPT: (test code = 8140) (NOTE) PAP TEST, THINPREP, [id number] 00:00:00 Test Item Value Reference Range Interpretation Comments SOURCE: (test code = 8001) Cervical/Endocervi bruce SLIDES: (test code = 8011) 1 LMP: (test code = 8021) SPECIMEN ADEQUACY: (test (NOTE) code = 93979) INTERPRETATION: (test code LSIL/EPITH. = 31112) ABNORMALITY; SEE BELOW TOOL DESIGNER: (test Alessandro Plank,CT(ASCP) code = 8101) PATHOLOGIST INTERPRETATION Anca Parnell BY: (test code = 8122) LOCATION: (test code = (NOTE) 82863) CPT: (test code = 8140) (NOTE) PAP TEST, THINPREP, [id number] 00:00:00 Test Item Value Reference Range Interpretation Comments SOURCE: (test code = 8001) Cervical/Endocervi bruce SLIDES: (test code = 8011) 1 LMP: (test code = 8021) SPECIMEN ADEQUACY: (test (NOTE) code = 52902) INTERPRETATION: (test code LSIL/EPITH. = 42883) ABNORMALITY; SEE BELOW TOOL DESIGNER: (test Alessandro Mcnamara,CT(ASCP) code = 8101) PATHOLOGIST INTERPRETATION Anca Parnell BY: (test code = 8122) LOCATION: (test code = (NOTE) 33654) CPT: (test code = 8140) (NOTE) PAP TEST, THINPREP, [id number] 00:00:00 Test Item Value Reference Range Interpretation Comments SOURCE: (test code = 8001) Cervical/Endocervi bruce SLIDES: (test code = 8011) 1 LMP: (test code = 8021) SPECIMEN ADEQUACY: (test (NOTE) code = 40367) INTERPRETATION: (test code LSIL/EPITH. = 13403) ABNORMALITY; SEE BELOW TOOL DESIGNER: (test Alessandro Mcnamara,CT(ASCP) code = 8101) PATHOLOGIST INTERPRETATION Anca Parnell BY: (test code = 8122) LOCATION: (test code = (NOTE) 36150) CPT: (test code = 8140) (NOTE) PAP TEST, THINPREP, [id number] 00:00:00 Test Item Value Reference Range Interpretation Comments SOURCE: (test code = 8001) Cervical/Endocervi bruce SLIDES: (test code = 8011) 1 LMP: (test code = 8021) SPECIMEN ADEQUACY: (test (NOTE) code = 16907) INTERPRETATION: (test code LSIL/EPITH. = 14952) ABNORMALITY; SEE BELOW TOOL DESIGNER: (test Alessandro Mcnamara,CT(ASCP) code = 8101) PATHOLOGIST INTERPRETATION Anca Parnell BY: (test code = 8122) LOCATION: (test code = (NOTE) 65046) CPT: (test code = 8140) (NOTE) HPV HIGH RISK WITH GENOTYPE, [id number] 00:00:00 Test Item Value Reference Range Interpretation Comments HPV HIGH RISK INTERP (test code = NEGATIVE 80157) HPV 16 (test code = 80318) NEGATIVE HPV 18 (test code = 27286) NEGATIVE HPV, HR, OTHER GENOTYPES (test code NEGATIVE = 32434) HPV HIGH RISK WITH GENOTYPE, [id number] 00:00:00 Test Item Value Reference Range Interpretation Comments HPV HIGH RISK INTERP (test code = NEGATIVE 24792) HPV 16 (test code = 50056) NEGATIVE HPV 18 (test code = 31309) NEGATIVE HPV, HR, OTHER GENOTYPES (test code NEGATIVE = 91656) HPV HIGH RISK WITH GENOTYPE, [id number] 00:00:00 Test Item Value Reference Range Interpretation Comments HPV HIGH RISK INTERP (test code = NEGATIVE 64310) HPV 16 (test code = 67138) NEGATIVE HPV 18 (test code = 30204) NEGATIVE HPV, HR, OTHER GENOTYPES (test code NEGATIVE = 27336) HPV HIGH RISK WITH GENOTYPE, [id number] 00:00:00 Test Item Value Reference Range Interpretation Comments HPV HIGH RISK INTERP (test code = NEGATIVE 52323) HPV 16 (test code = 12407) NEGATIVE HPV 18 (test code = 22697) NEGATIVE HPV, HR, OTHER GENOTYPES (test code NEGATIVE = 33180) HPV HIGH RISK WITH GENOTYPE, [id number] 00:00:00 Test Item Value Reference Range Interpretation Comments HPV HIGH RISK INTERP (test code = NEGATIVE 73920) HPV 16 (test code = 52901) NEGATIVE HPV 18 (test code = 15957) NEGATIVE HPV, HR, OTHER GENOTYPES (test code NEGATIVE = 51453)
[2022-08-30 19:37] LABS: Urine Blood 3+ (Negative); Urine Glucose Negative (Negative); Urine Protein Negative (Negative); Urine Specific Gravity >=1.030 (1.005-1.030); Urine pH 5.5 (5.0-7.0)
[2022-08-30 19:41] LABS: Absolute Lymphocytes (CBC) 2.4 K/uL (0.7-4.9); Hematocrit 41.5 % (36.0-45.0); Lymphocytes % 22.9 % (15.3-44.8); MCV 91.3 fL (80-100); MPV 8.8 fL (7.6-11.3); RBC Red Blood Cell Count 4.55 M/uL (3.86-4.86)
[2022-08-30 19:59] LABS: Albumin 3.5 g/dL (3.4-5.0); Bilirubin Total 0.3 mg/dL (0.2-1.0); Magnesium 2.3 mg/dL (1.6-2.4); Potassium 3.6 mmol/L (3.5-5.1); Protein, Total 8.2 g/dL (6.4-8.2); Troponin High Sensitivity 3.6 pg/mL (<58.9)
[2022-08-30 20:12] LABS: Urine Bacteria None Seen /HPF (<20); Urine Mucus Slight /HPF (None Seen); Urine RBC 21-50 /HPF (None Seen)
--- NOTE | 2022-08-30 20:45 | RAD REPORT ---
EXAM DESCRIPTION: CT - Head Brain Wo Cont - 08/30/2022 8:32 pm CLINICAL HISTORY: Paresthesia of L hand and foot COMPARISON: Head Brain Wo Cont dated 01/16/2016; HEAD BRAIN W O CONTRAST dated 12/06/2014 TECHNIQUE: All CT scans are performed using dose optimization technique as appropriate and may inclu de automated exposure control or mA/KV adjustment according to patient size. FINDINGS: No intracranial hemorrhage, hydrocephalus or extra-axial fluid collection.No areas of brai n edema or evidence of midline shift. The paranasal sinuses and mastoids are clear. The calvarium is intact. IMPRESSION: No acute intracranial abnormality.
--- NOTE | 2022-08-30 20:57 | ER ---
Nurse's Notes [facility] Name: Aneta Wang Age: 37 yrs Sex: Female : 1985 Arrival Date: 08/30/2022 Time: 18:34 Bed 2 Private MD: Diagnosis: Paresthesia of skin Presentation: 08/30 18:54 Chief complaint: Patient states: Whole left side of body tingling x 2 hours. Hx of jl7 tingling with stress. Coronavirus screen: Vaccine status: Patient reports receiving the 2nd dose of the covid vaccine. At this time, the client does not indicate any symptoms associated with coronavirus-19. Ebola Screen: No symptoms or risks identified at this time. Initial Sepsis Screen: Does the patient meet any 2 criteria? No. Patient's initial sepsis screen is negative. Does the patient have a suspected source of infection? No. Patient's initial sepsis screen is negative. Risk Assessment: Do you want to hurt yourself or someone else? Patient reports no desire to harm self or others. Onset of symptoms was August 30, 2022 at 17:00. 18:54 Method Of Arrival: Ambulatory [facility] 18:54 Acuity: TAMMY 3 jl7 Triage Assessment: 18:56 General: Appears in no apparent distress. uncomfortable, Behavior is calm, cooperative, jl7 appropriate for age. Pain: Complains of pain in left arm and left leg Pain currently is 8 out of 10 on a pain scale. Neuro: Level of Consciousness is awake, alert, obeys commands, Oriented to person, place, time, situation. Cardiovascular: Patient's skin is warm and dry. 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 - Social history:: Smoking status: Patient denies any tobacco usage or history of. Screenin:44 [facility] ED Fall Risk Assessment (Adult) Score/Fall Risk Level 0 - 2 = Low Risk. Abuse as6 screen: Denies threats or abuse. Denies injuries from another. Nutritional screening: No deficits noted. Tuberculosis screening: No symptoms or risk factors identified. Assessment: 19:42 General: Appears in no apparent distress. Behavior is calm, cooperative. Pain: as6 Complains of pain in left leg and left arm. Neuro: Level of Consciousness is awake, alert, obeys commands, Oriented to person, place, time, situation, Reports numbness in left leg and left arm weakness in left leg and left arm. Cardiovascular: Capillary refill < 3 seconds Patient's skin is warm and dry. Respiratory: Respiratory effort is even, unlabored, Respiratory pattern is regular, symmetrical. 20:53 Reassessment: Patient appears in no apparent distress at this time. General: provider as6 talking with pt. Vital Signs: 18:54 BP 144 / 87; Pulse 87; Resp 17; Temp 97.9; Pulse Ox 100% on R/A; Weight 83.91 kg; jl7 Height 5 ft. 4 in. (162.56 cm); Pain 8/10; 19:43 BP 139 / 86; Pulse 91; Resp 18 S; Pulse Ox 99% on R/A; as6 20:54 BP 116 / 76; Pulse 80; Resp 17 S; Pulse Ox 100% on R/A; as6 18:54 Body Mass Index 31.75 (83.91 kg, 162.56 cm) jl7 ED Course: 18:34 Patient arrived in ED. as 18:56 Triage completed. jl7 18:56 Arm band placed on right wrist. jl7 19:06 Xavi Moise, LEX is Primary Nurse. as6 19:07 Rocio Butler MD is Attending Physician. sd2 19:25 Inserted saline lock: 22 gauge in right antecubital area, using aseptic technique. as6 Blood collected. 19:41 Urine Microscopic Only Sent. as6 19:41 Troponin High Sensitivity Sent. as6 19:41 CMP Sent. as6 19:41 Magnesium Sent. as6 19:42 CBC with Diff Sent. as6 19:44 Placed in gown. Bed in low position. Call light in reach. Side rails up X 1. as6 20:34 CT Head Brain wo Cont In Process Unspecified. EDMS 21:32 No provider procedures requiring assistance completed. IV discontinued, intact, as6 bleeding controlled, No redness/swelling at site. Pressure dressing applied. Administered Medications: 21:32 Drug: Ketorolac 15 mg Route: IVP; Site: right antecubital; as6 21:32 Follow up: Response: No adverse reaction as6 Medication: 19:44 VIS not applicable for this client. as6 Outcome: 20:57 Discharge ordered by . sd2 21:33 Discharged to home ambulatory. as6 21:33 Condition: stable 21:33 Discharge instructions given to patient, Instructed on discharge instructions, follow up and referral plans. Demonstrated understanding of instructions, follow-up care. 21:33 Patient left the ED. as6 Signatures: Dispatcher [employer] Riana Glover Jahala, RN RN jl7 Xavi Moise RN RN as6 Rocio Butler MD MD sd2
--- NOTE | 2022-08-30 20:57 | EDPHYS ---
Physician Documentation [facility] Name: Aneta Wang Age: 37 yrs Sex: Female : 1985 Arrival Date: 08/30/2022 Time: 18:34 Bed 2 Private MD: ED Physician Rocio Butler HPI: 08/30 19:18 This 37 yrs old Black Female presents to ER via Ambulatory with complaints of Numbness, sd2 Chest Pain, Breathing Difficulty. 19:18 37-year-old female presents with chief complaint of 3-hour history of paresthesias to sd2 her left hand and left foot. She denies any trauma but also cites pain to these areas as well. She denies sleeping any differently or any complete numbness or weakness to the arm or leg. She has not had any speech difficulty or facial asymmetry. She denies any significant chest pain or shortness of breath to me. She states that she told her mother about her symptoms who told her to come to the ER to have an EKG performed. The patient is ambulatory without difficulty and has no other complaints at this time.. 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 - Social history:: Smoking status: Patient denies any tobacco usage or history of. ROS: 19:18 Constitutional: Negative for fever, chills, and weight loss, Eyes: Negative for injury, sd2 pain, redness, and discharge, Cardiovascular: Negative for chest pain, palpitations, and edema, Respiratory: Negative for shortness of breath, cough, wheezing. Abdomen/GI: Negative for abdominal pain, nausea, vomiting, diarrhea. MS/Extremity: Negative for injury and deformity, Skin: Negative for injury, rash, and discoloration. 19:18 Neuro: Positive for tingling, Negative for dizziness, headache, numbness, visual changes, weakness. Exam: 19:18 Constitutional: This is a well developed, well nourished patient who is awake, alert, sd2 and in no acute distress. Head/Face: Normocephalic, atraumatic. Eyes: EOMI, normal conjunctiva bilaterally Chest/axilla: Normal chest wall appearance and motion. Nontender with no deformity. Cardiovascular: Regular rate and rhythm with a normal S1 and S2. No gallops, murmurs, or rubs. 2+ distal pulses. Respiratory: Lungs have equal breath sounds bilaterally, clear to auscultation and percussion. No rales, rhonchi or wheezes noted. No increased work of breathing, no retractions or nasal flaring. Abdomen/GI: Soft, non-tender, with normal bowel sounds. No guarding or rebound. No evidence of tenderness throughout. Skin: Warm, dry with normal turgor. Normal color with no rashes, no lesions, and no evidence of cellulitis. MS/ Extremity: Pulses equal, no cyanosis. Neurovascular intact. Full, normal range of motion. Ambulatory without difficulty. Neuro: Awake and alert, GCS 15, oriented to person, place, time, and situation. Cranial nerves II-XII grossly intact. Motor strength 5/5 in all extremities. Sensory grossly intact. Cerebellar exam normal. Normal gait. Psych: Awake, alert, with orientation to person, place and time. Behavior, mood, and affect are within normal limits. 21:01 ECG was reviewed by the Attending Physician. NSR, rate 78, no STEMI criteria sd2 Vital Signs: 18:54 BP 144 / 87; Pulse 87; Resp 17; Temp 97.9; Pulse Ox 100% on R/A; Weight 83.91 kg; jl7 Height 5 ft. 4 in. (162.56 cm); Pain 8/10; 19:43 BP 139 / 86; Pulse 91; Resp 18 S; Pulse Ox 99% on R/A; as6 20:54 BP 116 / 76; Pulse 80; Resp 17 S; Pulse Ox 100% on R/A; as6 18:54 Body Mass Index 31.75 (83.91 kg, 162.56 cm) 7 MDM: 19:07 Patient medically screened. sd2 19:18 Differential diagnosis: Dehydration, electrolyte abnormality, UTI, PNA, anemia, CVA, sd2 intracranial hemorrhage among others. Data reviewed: vital signs, nurses notes. 20:55 Data reviewed: lab test result(s), EKG, radiologic studies. Counseling: I had a sd2 detailed discussion with the patient and/or guardian regarding: the historical points, exam findings, and any diagnostic results supporting the discharge/admit diagnosis, lab results, radiology results, the need for outpatient follow up, to return to the emergency department if symptoms worsen or persist or if there are any questions or concerns that arise at home. ED course: Labs and imaging reviewed. Labs grossly WNCL. Trop neg. EKG with no ischemic changes. Imaging with no acute process. Pt advised of likely paresthesia. Doubt CVA with no focal neuro deficits at this time and negative CT. Pt advised of need for outpatient follow up and continued supportive care. Verbalizes understanding of discharge plan and strict return precautions. . 08/30 19:16 Order name: CBC with Diff; Complete Time: 20:37 sd2 08/30 19:16 Order name: CMP; Complete Time: 20:37 sd2 08/30 19:16 Order name: Magnesium; Complete Time: 20:37 sd2 08/30 19:16 Order name: Troponin High Sensitivity; Complete Time: 20:37 sd2 08/30 19:17 Order name: Urine Microscopic Only; Complete Time: 20:37 sd2 08/30 19:37 Order name: Urine Dipstick-Ancillary; Complete Time: 20:37 EDMS 08/30 19:16 Order name: EKG - Nurse/Tech; Complete Time: 20:14 sd2 08/30 19:16 Order name: CT Head Brain wo Cont; Complete Time: 20:47 sd2 08/30 19:17 Order name: Urine Dipstick-Ancillary (obtain specimen); Complete Time: 19:41 sd2 08/30 19:17 Order name: Urine Test (obtain specimen); Complete Time: 19:41 sd2 08/30 19:49 Order name: Urine --Ancillary (enter results) wm 08/30 20:20 Order name: Urine Culture EDMS Administered Medications: 21:32 Drug: Ketorolac 15 mg Route: IVP; Site: right antecubital; as6 21:32 Follow up: Response: No adverse reaction as6 Disposition: 20:57 Chart complete. sd2 Disposition Summary: 08/30/22 20:57 Discharge Ordered Location: Home sd2 Problem: new sd2 Symptoms: have improved sd2 Condition: Stable sd2 Diagnosis - Paresthesia of skin sd2 Followup: sd2 - With: Private Physician - When: 2 - 3 days - Reason: Recheck today's complaints, Continuance of care, Re-evaluation by your physician Discharge Instructions: - Discharge Summary Sheet sd2 - Paresthesia sd2 Forms: - Medication Reconciliation Form sd2 - Thank You Letter sd2 - Antibiotic Education sd2 - Prescription Opioid Use sd2 Signatures: Dispatcher [employer] Gale Elizabeth RN RN jl7 Xavi Moise RN RN as6 Rocio Butler MD MD sd2
[2022-08-30] MEDS ORDERED: KETOROLAC 30 MG/ML INJ ONE (21:26)
[2022-08-30 22:11] LABS: Urine Specific Gravity/Preg >1.030 (1.005-1.030)
[2022-08-30 22:13] VITALS: TEMP 97.9
[2022-08-30 22:15] VITALS: BP 116/76; O2SAT 100
--- NOTE | 2022-09-01 16:30 | EKG ---
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
== END 2022-08-30 21:33 | disposition home or self-care (01) ==
LOC: ER 18:32
DX: R20.2 Paresthesia of skin (principal)
CPT/HCPCS: 36415; 70450; 80053; 81003; 81015; 81025; 83735; 84484; 85025; 87086; 87088; 93005; 96374; 99284

== ENCOUNTER → 2023-09-28 | Emergency (ER) | payer SELFPAY ==
[~2023-09-28] MED LIST: CODEINE 30MG/APAP 300MG TAB ONE
--- OUTSIDE RECORDS SUMMARY | 2023-09-28 15:40 | XMS REPORT | Continuity of Care Document ---
Author Name Unknown Address [address] [place] [address] [facility] thconnect Address [address] [place] [address] Care Team Providers Care Health Data Administrator Name Role Phone MAG Attending Clinician Unavailable CHARISSE LEPE Attending Clinician Unavailable CABRERA VILLAFANA Attending Clinician Unavailable Kathryn Merrill Attending Clinician [phone] MAG Admitting Clinician Unavailable Problems Condition Name Condition Details Condition Category Status Onset Date Resolution Date Last Treatment Date Treating Clinician Comments Source Cervical high risk human papillomav irus (HPV) DNA test positive Cervical high risk human papillomav irus (HPV) DNA test positive Disease Active 01-27 00:00: 00 Overview: HPV +,Pap Smear results negative, Cotesting needed at 12 months or HPV DNA typing. [facility] Overweight (BMI 25.0-29.9) Overweight (BMI 25.0-29.9) Disease Active 01-25 00:00: 00 [facility] Screen for STD (sexually transmitte d disease) Screen for STD (sexually transmitte d disease) Disease Active 01-25 00:00: 00 [facility] History of bilateral tubal ligation History of bilateral tubal ligation Disease Active 01-01 00:00: 00 [facility] Heavy menses Heavy menses Disease Active 01-01 00:00: 00 [facility] Bipolar 1 disorder, depressed Bipolar 1 disorder, depressed Disease Active 04-18 00:00: 00 [facility] Allergies, Adverse Reactions, Alerts Allergy Name Allergy Type Status Severity Reaction(s) Onset Date Inactive Date Treating Clinician Comments Source Tramadol Propensi ty to adverse reaction s Active Hallucinatio ns 04-24 00:00: 00 [facility] TRAMADOL DRUG INGREDI Active Hallucinates 04-24 00:00: 00 [facility] Penicill ins Propensi ty to adverse reaction s Active Hives 04-18 00:00: 00 [facility] PENICILL INS Drug Class Active Hives 04-18 00:00: 00 [facility] Social History Social Habit Start Date Stop Date Quantity Comments Source [facility] Exposure to SARS-CoV-2 (event) Not sure [facility] Tobacco use and exposure 2020-04-24 00:00:00 2020-04-24 00:00:00 Never used [facility] Alcohol intake 2020-04-24 00:00:00 2020-04-24 00:00:00 Current non-drinker of alcohol (finding) [facility] Smoking Status Start Date Stop Date Source Never smoker [facility] Medications Ordered Medication Name Filled Medication Name Start Date Stop Date Current Medication? Ordering Clinician Indication Dosage Frequency Signature (SIG) Comments Components Source ibuprofen (IBU) tablet 600 mg 04-24 22:45: 00 04-24 21:45 :00 No 600mg 600 mg, Oral, ONCE, 1 dose, Thu04/24/20 at 1745, MELYSSA [facility] phenazopyri dine (PYRIDIUM) tablet 200 mg 04-24 22:45: 00 04-24 21:45 :00 No 200mg 200 mg, Oral, ONCE NOW, 1 dose, Thu04/24/20 at 1745, Routine [facility] ibuprofen 600 mg tablet 04-24 00:00: 00 Yes [id number] 600mg Take 1 tablet by mouth every 6 (six) hours as needed for Pain (scale 4-6). [facility] Nitrofurant oin&Nit. Macrocryst 100 mg capsule 04-24 00:00: 00 05-02 04:59 :00 No [id number] 100mg Take 1 capsule by mouth 2 (two) times daily for 7 days. [facility] phenazopyri dine (PYRIDIUM) 200 mg tablet 04-24 00:00: 00 04-28 04:59 :00 No [id number] 200mg Take 1 tablet by mouth 3 (three) times daily for 3 days. [facility] Vital Signs Vital Name Observation Time Observation Value Comments S ource Systolic blood pressure 2020-04-24 21:28:00 121 mm[Hg] [facility] Diastolic blood pressure 2020-04-24 21:28:00 84 mm[Hg] [facility] Heart rate 2020-04-24 21:28:00 93 /min [facility] Body temperature 2020-04-24 21:28:00 37.44 Paige [facility] Respiratory rate 2020-04-24 21:28:00 16 /min [facility] Body height 2020-04-24 21:28:00 162.6 cm [facility] Body weight 2020-04-24 21:28:00 77.111 kg [facility] BMI 2020-04-24 21:28:00 29.18 kg/m2 [facility] Oxygen saturation in Arterial blood by Pulse oximetry 2020-04-24 21:28:00 98 /min [facility] Systolic blood pressure 2020-04-24 21:28:00 121 mm[Hg] [facility] Diastolic blood pressure 2020-04-24 21:28:00 84 mm[Hg] [facility] Heart rate 2020-04-24 21:28:00 93 /min [facility] Body temperature 2020-04-24 21:28:00 37.44 Paige [facility] Respiratory rate 2020-04-24 21:28:00 16 /min [facility] Body height 2020-04-24 21:28:00 162.6 cm [facility] Body weight 2020-04-24 21:28:00 77.111 kg [facility] BMI 2020-04-24 21:28:00 29.18 kg/m2 [facility] Oxygen saturation in Arterial blood by Pulse oximetry 2020-04-24 21:28:00 98 /min [place] [facility] Procedures Procedure Date / Time Performed Performing Clinicia n Source URINALYSIS 2020-04-24 21:34:00 Kathryn Corona [facility] POCT TEST 2020-04-24 21:34:00 Kathryn Corona [facility] NOTICE OF PRIVACY PRACTICES 2020-04-24 21:18:13 Doctor Unassigned, [place] [facility] CONSENT/REFUSAL FOR DIAGNOSIS AND TREATMENT 2020-04-24 21:18:02 Doctor Unassigned, [place] [facility] Encounters Start Date/Time End Date/Time Encounter Type Admission Type Attending [facility] Care Facility Care Department Encounter ID Source 2021-06-21 15:21:52 Emergency [facility] [id number] [facility] 2023-09-03 15:51:12 2023-09-03 15:51:12 Outpatient [facility] [id number] Mannie Jones 2023-08-31 16:03:14 2023-08-31 16:03:14 Outpatient S[facility] SFA [id number] Mannie Jones 2023-06-18 08:24:37 2023-06-18 08:24:37 Outpatient SFA SFA [id number] Mannie Jones 2023-04-30 15:23:04 2023-04-30 15:23:04 Outpatient SFA SFA [id number] Mannie Jones 2023-04-29 14:49:12 2023-04-29 14:49:12 Outpatient SFA SFA [id number] Mannie Jones 2023-03-23 08:05:18 2023-03-23 08:05:18 Outpatient SFA SFA [id number] Mannie Jones 2023-01-02 08:59:24 2023-01-02 08:59:24 Outpatient SFA SFA [id number] Mannie Jones 2022-10-16 17:23:10 2022-10-16 17:23:10 Outpatient SFA SFA [id number] Mannie Jones 2022-07-31 16:34:25 2022-07-31 16:34:25 Outpatient SFA SFA [id number] Mannie Jones 2022-03-04 04:39:00 2022-03-04 04:39:00 Outpatient JUAN PABLOGURPREET ROBERTSON [facility] [id number] Vladimir gracia [facility] Program 2021-03-05 15:00:00 2021-03-05 15:00:00 Outpatient CHARISSE LEPE [facility] [id number] [facility] 2021-03-05 00:00:00 2021-03-05 00:00:00 Outpatient CHARISSE SANDHU [facility] [id number] [facility] 2021-02-07 00:00:00 2021-02-07 00:00:00 Outpatient CHARISSE SANDHU [facility] [id number] [facility] 2021-02-07 00:00:00 2021-02-07 00:00:00 Outpatient CHARISSE SANDHU [facility] [id number] [facility] 2020-10-02 16:20:00 2020-10-02 16:20:00 Outpatient CABRERA ROWE [facility] [id number] [facility] 2020-04-24 16:30:00 2020-04-24 17:27:00 Emergency Kathryn Corona [facility] [id number] 2020-04-24 16:30:00 2020-04-24 17:27:00 Emergency Kathryn Corona [facility] [id number] [facility] Results Test Description Test Time Test Comments Results Result Co mments Source T4 (THYROXINE)2023-01-03 06:59:45* Test Item Value Reference Range Interpretation Comme nts T4 (THYROXINE) (test code = 2819) 8.3 UG/DL 4.5-10.5 UNLESS OTHERW ISE INDICATED, ALL TESTING PERFORMED AT [facility] [address] [place] [address] MEMORY CARE PROGRAM DIRECTOR: LAUREN ROBIN M.D. IA NUMBER [id number] [facility] [place]. [id number] COMPREHENSIVE METABOLIC [id number] 04:55:16* Test Item Value Reference Range Interpretation Comme nts GLUCOSE (test code = 7) 95 MG/DL 70-99 BUN (test code = 2207) 12 MG/DL 6-20 CREATININE (test code = 2214) 0.82 MG/DL 0.60-1.30 eGFR (2020 CKD-EPI) (test code = 81488) 94 ML/MIN/1.73 >60 CALC BUN/CREAT (test code = 2235) 15 RATIO 6-28 SODIUM (test code = 2231) 140 MEQ/L 133-146 POTASSIUM (test code = 2228) 4.3 MEQ/L 3.5-5.4 CHLORIDE (test code = 2215) 105 MEQ/L 95-107 CARBON DIOXIDE (test code = 2206) 23 MEQ/L 19-31 CALCIUM (test code = 2209) 9.1 MG/DL 8.5-10.5 PROTEIN, TOTAL (test code = 222) 7.8 G/DL 6.1-8.3 ALBUMIN (test code = 2201) 4.1 G/DL 3.5-5.2 CALC GLOBULIN (test code = 2240) 3.7 G/DL 1.9-3.7 CALC A/G RATIO (test code = 2234) 1.1 RATIO 1.0-2.6 BILIRUBIN, TOTAL (test code = 2207) 0.4 MG/DL See_Comment [Automated me ssage] The system which generated this result transmitted reference range: <=1.2. The reference range was not used to interpret this result as normal/abnormal. ALKALINE PHOSPHATASE (test code = 4) 85 U/L 40-112 AST (test code = 2218) 16 U/L 9-40 ALT (test code = 2219) 11 U/L 5-40 LIPID [id number] 04:55:16* Test Item Value Reference Range Interpretation Comme nts CHOLESTEROL (test code = 2210) 148 MG/DL <200 TRIGLYCERIDES (test code = 2232) 57 MG/DL <150 HDL CHOLESTEROL (test code = 2220) 41 MG/DL >39 CALC LDL CHOL (test code = 2237) 93 MG/DL <100 NOTE: CALCULATED LDL IS BASED ON DEN-HIGUERA METHOD WHICHINCLUDES ADJUSTABLE TRIGLYCERIDE:VLDL CHOLESTEROL RATIO.THIS FACTOR VARIES BY MEASURED TRIGLYCERIDE AND NON-HDLCHOLESTEROL CONCENTRATIONS WITH INCREASED CALCULATED LDL SEENIN HIGHER TRIGLYCERIDE OR LOWER NON-HDL SPECIMENS. FOR MOREINFORMATION, SEE CLIENT ANNOUNCEMENT AT [email or web address] RISK RATIO LDL/HDL (test code = 2238) 2.27 RATIO <3.22 HEMOGLOBIN [id number] 03:34:22* Test Item Value Reference Range Interpretation Comme nts HEMOGLOBIN A1c (test code = 89881) 5.9 % 4.2-5.6 H [employer] GUIDELINES FOR HGB A1C: PREDIABETES/INCREASED RISK . . . . . . . 5.7-6.4% DIAGNOSIS OF DIABETES . . . . . . . . . >=6.5% WITH CONFIRMATION OR APPROPRIATE SYMPTOMS NOTE: ASSAY MAY BE AFFECTED BY HEMOGLOBINOPATHIES (SICKLE CELL ANEMIA, S-C DISEASE, OTHERS) OR ARTIFICIALLY LOWERED BY DECREASED RED CELL SURVIVAL (HEMOLYTIC ANEMIAS, BLOOD LOSS, ETC.). CONSIDER ALTERNATE TESTING OR LABORATORY CONSULTATION. FREE T4 (THYROXINE)2021-11-07 04:32:21* Test Item Value Reference Range Interpretation Comme nts FREE T4 (THYROXINE) (test code = 2823) 1.00 NG/DL 0.80-1.90 UNLESS OTHERWISE INDICATED, [facility]MED [facility] [address] [place] [address] MEMORY CARE PROGRAM DIRECTOR: SERENE MOY M.D. CLIA NUMBER [id number] [facility] [place]. [id number] TSH, THIRD [id number] 05:45:14* Test Item Value Reference Range Interpretation Comme nts TSH, THIRD GENERATION (test code = 2821) <0.010 UIU/ML 0.400-4.100 L UNLESS OTHERWISE INDICATED, ALL TESTING PERFORMED [facility] [address] [place] [address] MEMORY CARE PROGRAM DIRECTOR: SERENE MOY M.D. CLIA NUMBER [id number] [place]. [id number] VAGINAL PATHOGENS DNA [id number] 08:24:47* Test Item Value Reference Range Interpretation Comme nts SUBHASH SPECIES (test code = 40243) TEST NOT PERFORMED NEGATIVE NO SPECIMEN RECEIVED FOR TESTING. CHARGES DELETED. G. VAGINALIS (test code = ) TEST NOT PERFORMED NEGATIVE NO SPECIMEN RECEIVED FOR TESTING. CHARGES DELETED. T. VAGINALIS (test code = 67951) TEST NOT PERFORMED NEGATIVE NO SPECIMEN RECEIVED FOR TESTING. CHARGES DELETED. UNLESS OTHERWISE INDICATED, ALL TESTING PERFORMED [employer] [facility] [address] [place] [address] MEMORY CARE PROGRAM DIRECTOR: SERENE MOY M.D. CLIA NUMBER [id number] [place]. [id number] LIPID [id number] 03:48:14* Test Item Value Reference Range Interpretation Comme nts CHOLESTEROL (test code = 2210) 146 MG/DL <200 TRIGLYCERIDES (test code = 2232) 54 MG/DL <150 HDL CHOLESTEROL (test code = 2220) 41 MG/DL >39 CALC LDL CHOL (test code = 2237) 91 MG/DL <100 NOTE: CALCULATED LDL IS BASED ON DEN-HIGUERA METHOD WHICHINCLUDES ADJUSTABLE TRIGLYCERIDE:VLDL CHOLESTEROL RATIO.THIS FACTOR VARIES BY MEASURED TRIGLYCERIDE AND NON-HDLCHOLESTEROL CONCENTRATIONS WITH INCREASED CALCULATED LDL SEENIN HIGHER TRIGLYCERIDE OR LOWER NON-HDL SPECIMENS. FOR MOREINFORMATION, SEE CLIENT ANNOUNCEMENT AT [email or web address] RISK RATIO LDL/HDL (test code = 2238) 2.22 RATIO <3.22 COMPREHENSIVE METABOLIC [id number] 03:48:14* Test Item Value Reference Range Interpretation Comme nts GLUCOSE (test code = 2217) 82 MG/DL 70-99 BUN (test code = 2208) 14 MG/DL 6-20 CREATININE (test code = 2214) 0.67 MG/DL 0.60-1.30 eGFR (2020 CKD-EPI) (test code = 47108) 116 ML/MIN/1.73 >60 CALC BUN/CREAT (test code = 2235) 21 RATIO 6-28 SODIUM (test code = 2230) 140 MEQ/L 133-146 POTASSIUM (test code = 2227) 4.3 MEQ/L 3.5-5.4 CHLORIDE (test code = 5) 106 MEQ/L 95-107 CARBON DIOXIDE (test code = 2205) 23 MEQ/L 19-31 CALCIUM (test code = 2208) 9.5 MG/DL 8.5-10.5 PROTEIN, TOTAL (test code = 2228) 8.2 G/DL 6.1-8.3 ALBUMIN (test code = 2200) 4.3 G/DL 3.5-5.2 CALC GLOBULIN (test code = 2239) 3.9 G/DL 1.9-3.7 H CALC A/G RATIO (test code = 2233) 1.1 RATIO 1.0-2.6 BILIRUBIN, TOTAL (test code = 2206) 0.2 MG/DL See_Comment [Automated [employer]] The system which generated this result transmitted reference range: <=1.2. The reference range was not used to interpret this result as normal/abnormal. ALKALINE PHOSPHATASE (test code = 2203) 140 U/L 40-112 H AST (test code = 8) 17 U/L 9-40 ALT (test code = 2218) 14 U/L 5-40 HEPATIC FUNCTION [id number] 03:48:14* Test Item Value Reference Range Interpretation Comme nts PROTEIN, TOTAL (test code = 2228) 8.2 G/DL 6.1-8.3 ALBUMIN (test code = 2200) 4.3 G/DL 3.5-5.2 BILIRUBIN, TOTAL (test code = 2206) 0.2 MG/DL See_Comment [Automated Melody Managementa ge] The system which generated this result transmitted reference range: <=1.2. The reference range was not used to interpret this result as normal/abnormal. BILIRUBIN, DIRECT (test code = 2021) 0.1 MG/DL 0.0-0.3 ALKALINE PHOSPHATASE (test code = 2203) 140 U/L 40-112 H AST (test code = 8) 17 U/L 9-40 ALT (test code = 9) 14 U/L 5-40 HEMOGLOBIN [id number] 03:35:24* Test Item Value Reference Range Interpretation Comme nts HEMOGLOBIN A1c (test code = 17510) 5.5 % 4.2-5.6 CBC W/AUTO DIFF WITH [id number] 03:06:39* Test Item Value Reference Range Interpretation Comme nts WBC (test code = 1001) 7.5 K/UL 3.5-11.0 RBC (test code = 1002) 4.72 M/UL 3.80-5.40 HEMOGLOBIN (test code = 1003) 13.9 G/DL 11.5-15.5 HEMATOCRIT (test code = 1004) 40.6 % 34.0-45.0 MCV (test code = 1005) 86.0 fL 80.0-99.0 MCH (test code = 1006) 29.4 PG 25.0-33.0 MCHC (test code = 1007) 34.2 G/DL 31.0-36.0 RDW (test code = 1038) 13.1 % 11.5-15.0 NEUTROPHILS (test code = 1008) 51.1 % LYMPHOCYTES (test code = 1010) 39.1 % MONOCYTES (test code = 1011) 6.3 % EOSINOPHILS (test code = 1012) 2.4 % BASOPHILS (test code = 1013) 0.7 % IMMATURE GRANULOCYTES (test code = 1036) 0.4 % NUCLEATED RBCS (test code = 1065) 0.0 /100 WBC'S See_Comment [Automated messa ge] The system which generated this result transmitted reference range: 0.0. The reference range was not used to interpret this result as normal/abnormal. PLATELET COUNT (test code = 1015) 243 K/UL 130-400 ABSOLUTE NEUTROPHILS (test code = 1066) 3.84 K/UL 1.50-7.50 ABSOLUTE LYMPHOCYTES (test code = 1067) 2.93 K/UL 1.00-4.00 ABSOLUTE MONOCYTES (test code = 1068) 0.47 K/UL 0.20-1.00 ABSOLUTE EOSINOPHILS (test code = 1040) 0.18 K/UL 0.00-0.50 ABSOLUTE BASOPHILS (test code = 1069) 0.05 K/UL 0.00-0.20 ABS IMMATURE GRANULOCYTES (test code = 1020) 0.03 K/UL 0.00-0.10 ABS NUCLEATED RBCS (test code = 91853) 0.00 K/UL 0.00-0.11 [id number] 21:59:00* Test Item Value Reference Range Interpretation Comme nts APPEARANCE (test code = 5676100881) Hazy Clear A COLOR (test code = 7622534342) Yellow Yellow PH (test code = 2050713727) 4.8-8.0 SP GRAVITY (test code = 2860364000) 1.003-1.030 GLU U QUAL (test code = 0579501177) Normal Normal BLOOD (test code = 0871430193) 2+ Negative A KETONES (test code = 3555836236) Negative Negative PROTEIN (test code = 2887-8) Negative Negative UROBILIN (test code = 0396856104) 4.0 mg/dL Normal A BILIRUBIN (test code = 3401057059) Negative Negative NITRITE (test code = 0383422946) Negative Negative LEUK KAIN (test code = 7893957350) 75/uL Negative A RBC/HPF (test code = 8191425028) See_Comment H [Automated messa ge] The system which generated this result transmitted reference range: 0 - 3 HPF. The reference range was not used to interpret this result as normal/abnormal. WBC/HPF (test code = 1814224514) See_Comment H [Automated messa ge] The system which generated this result transmitted reference range: 0 - 5 HPF. The reference range was not used to interpret this result as normal/abnormal. BACTERIA (test code = 9336979902) Many Negative A MUCOUS (test code = 1075819300) Marked Negative LPF A SQ EPITH (test code = 2211503363) HPF Lab Interpretation (test code = 36180-9) [facility]normal [id number] 21:34:00* Test Item Value Reference Range Interpretation Comme nts POCT PREG (test code = 1605) Negative On board controls acceptable with C Line (test code = 3574) present POCT PREG LOT # (test code = 3575) [id number] POCT PREG TEST DATE ( test code = 3576) 03/23/2021 Lab Interpretation (test cod e = 71237-8) Normal [facility]
--- NOTE | 2023-09-28 16:01 | EDPHYS ---
Physician Documentation [facility] Name: Aneta Wang Age: 38 yrs Sex: Female : 1985 Arrival Date: 09/28/2023 Time: 15:36 Bed IW1 Private MD: ED Physician Lorenzo Elam HPI: 09/28 15:52 This 38 yrs old Black Female presents to ER via Ambulatory with complaints of Mouth cp Swelling. 15:52 The patient presents with pain, swelling. The problem is located in the upper palate cp and upper gumline. 15:52 Onset: The symptoms/episode began/occurred today. Duration: The symptoms are cp continuous, and are steadily getting worse. Associated signs and symptoms: Pertinent positives: pain, swelling, Pertinent negatives: dysphagia, fever, inability to eat, vomiting. Severity of symptoms: in the emergency department the symptoms are unchanged, despite home interventions. Historical: - Allergies: 15:45 PENICILLINS; ko1 - PMHx: 15:45 gestational diabetes; Hypertensive disorder; Hypothyroidism; Kidney stones; ko1 - PSHx: 15:45 tubal ligation; ko1 - Immunization history:: Adult Immunizations up to date. - Social history:: Smoking status: Patient denies any tobacco usage or history of. ROS: 15:55 Constitutional: Negative for body aches, chills, fever, cp 15:55 Eyes: Negative for injury, pain, redness, and discharge, cp 15:55 ENT: Positive for Gum pain Negative for drainage from ear(s), ear pain, Teeth pain sore cp throat, difficulty swallowing, difficulty handling secretions, 15:55 Neck: Negative for pain with movement, pain at rest, stiffness, 15:55 Respiratory: Negative for cough, shortness of breath, wheezing, cp 15:55 Abdomen/GI: Negative for abdominal pain, nausea, vomiting, and diarrhea, 15:55 Skin: Negative for cellulitis, rash, 15:55 Neuro: Negative for altered mental status, dizziness, headache, weakness, 15:55 All other systems are negative, Exam: 15:57 Constitutional: The patient appears in no acute distress, alert, awake, non-toxic, well cp developed, well nourished, 15:57 Head/Face: Normocephalic, atraumatic. cp 15:57 Eyes: Periorbital structures: appear normal, Conjunctiva: normal, no exudate, no injection, Sclera: no appreciated abnormality, Lids and lashes: appear normal, bilaterally, 15:57 ENT: External ear(s): are unremarkable, Ear canal(s): are normal, clear, TM's: dullness, bilaterally, Nose: is normal, Mouth: Lips: moist, Oral mucosa: moist, mild erythema, mild swelling and marked tenderness of upper palate, Gums: mild swelling, mild erythema, tenderness of upper right back posterior gumline, Tongue: is normal, abscess, is not appreciated, Posterior pharynx: Airway: no evidence of obstruction, patent, Tonsils: are normal in appearance, Dental exam: abscess, is not appreciated, dental caries, that is severe, diffusely, missing teeth, diffusely, pain, is not appreciated, Voice: is normal, 15:57 Neck: ROM/movement: is normal, is supple, without pain, no range of motions limitations, no meningismus, no nuchal rigidity, 15:57 Chest/axilla: Inspection: normal, 15:57 Cardiovascular: Rate: normal, Rhythm: regular, 15:57 Respiratory: the patient does not display signs of respiratory distress, Respirations: normal, no use of accessory muscles, no retractions, labored breathing, is not present, Breath sounds: are clear throughout, no decreased breath sounds, no stridor, no wheezing, 15:57 Skin: no rash present. Vital Signs: 15:42 BP 128 / 90; Pulse 80; Resp 18; Temp 98.3; Pulse Ox 100% ; ko1 16:06 BP 132 / 88; Pulse 84; Resp 16; Pulse Ox 99% ; ko1 MDM: 15:50 Patient medically screened. cp 15:55 Differential diagnosis: dental caries, gingivitis, dental abscess, pericoronitis, cp aphthous ulcers, gingivostomatitis. 16:00 Data reviewed: vital signs, nurses notes, and as a result, I will discharge patient. cp 16:00 I considered the following discharge prescriptions or medication management in the emergency department Medications were administered in the Emergency Department. See MAR. Care significantly affected by the following chronic conditions: Diabetes, Hypertension. Counseling: I had a detailed discussion with the patient and/or guardian regarding the historical points, exam findings, and any diagnostic results supporting the discharge/admit diagnosis, the need for outpatient follow up, a dentist, to return to the emergency department if symptoms worsen or persist or if there are any questions or concerns that arise at home. Response to treatment: the patient's symptoms have mildly improved after treatment, and as a result, I will discharge patient. Administered Medications: 15:57 Drug: Clindamycin PO 300 mg PO once Route: PO; ko1 15:57 Drug: Acetaminophen-Codeine PO (300 mg-30 mg) 2 tabs PO once; RASS on ADMIN: Combtv4, ko1 Very Agttd3, Agttd2, Rstlss1, AlertClm0, Drwsy-1, Lt Sdtn-2, Mod Sdtn-3, Dp Sdtn-4, UnArsble-5 Route: PO; Disposition Summary: 09/28/23 16:00 Discharge Ordered Notes: Location: Home cp Problem: an ongoing problem cp Symptoms: have improved cp Condition: Stable cp Diagnosis - Other specified disorders of teeth and supporting structures cp Followup: cp - With: Private Physician - When: 2 - 3 days - Reason: Worsening of condition Discharge Instructions: - Discharge Summary Sheet cp - Dental Pain cp - Diet and Dental Disease cp Forms: - Medication Reconciliation Form cp - Thank You Letter cp - Antibiotic Education cp - Prescription Opioid Use cp - Patient Portal Instructions cp - Leadership Thank You Letter cp Prescriptions: - diclofenac potassium 50 mg Oral tablet - take 1 tablet ORAL route 3 times per day as needed for pain; 30 tablet; cp Refills: 0, Product Selection Permitted - Clindamycin HCl 300 mg Oral Capsule - take 1 capsule ORAL route every 6 hours for 10 days; 40 capsule; Refills: 0, cp Product Selection Permitted Signatures: Lorenzo Francisco PA PA cp Anais Torres, RN RN ko1 Corrections: (The following items were deleted from the chart) 15:46 15:45 PMHx: Hypertensive disorder; ko1 ko1
--- NOTE | 2023-09-28 16:01 | ER ---
Nurse's Notes [facility] Name: Aneta Wang Age: 38 yrs Sex: Female : 1985 Arrival Date: 09/28/2023 Time: 15:36 Bed IW1 Private MD: Diagnosis: Other specified disorders of teeth and supporting structures Presentation: 09/28 15:42 Chief complaint: Patient states: gums, roof of mouth swollen and unable to put bridge ko1 in. Coronavirus screen: At this time, the client does not indicate any symptoms associated with coronavirus-19. Ebola Screen: No symptoms or risks identified at this time. Initial Sepsis Screen: Does the patient meet any 2 criteria? No. Patient's initial sepsis screen is negative. Does the patient have a suspected source of infection? No. Patient's initial sepsis screen is negative. Risk Assessment: Do you want to hurt yourself or someone else? Patient reports no desire to harm self or others. Onset of symptoms was September 28, 2023. 15:42 Method Of Arrival: Ambulatory ko1 15:42 Acuity: TAMMY 4 ko1 Triage Assessment: 15:45 General: Appears in no apparent distress. uncomfortable, Behavior is calm, cooperative, ko1 appropriate for age. Pain: Complains of pain in gums and hard palate. Historical: - Allergies: 15:45 PENICILLINS; ko1 - PMHx: 15:45 gestational diabetes; Hypertensive disorder; Hypothyroidism; Kidney stones; ko1 - PSHx: 15:45 tubal ligation; ko1 - Immunization history:: Adult Immunizations up to date. - Social history:: Smoking status: Patient denies any tobacco usage or history of. Screenin:59 [facility] ED Fall Risk Assessment (Adult) History of falling in the last 3 months, ko1 including since admission No falls in past 3 months (0 pts). Abuse screen: Denies threats or abuse. Denies injuries from another. Nutritional screening: No deficits noted. Tuberculosis screening: No symptoms or risk factors identified. Assessment: 15:59 EENT: Reports pain in mouth and hard palate and gums. ko1 Vital Signs: 15:42 BP 128 / 90; Pulse 80; Resp 18; Temp 98.3; Pulse Ox 100% ; ko1 16:06 BP 132 / 88; Pulse 84; Resp 16; Pulse Ox 99% ; ko1 ED Course: 15:37 Patient arrived in ED. rg4 15:41 Lorenzo Francisco PA is PHCP. cp 15:41 Lorenzo Elam MD is Attending Physician. cp 15:45 Triage completed. ko1 15:45 Arm band placed on right wrist. Patient placed in waiting room, Patient notified of ko1 wait time. 15:59 Anais Torres, RN is Primary Nurse. ko1 15:59 Patient has correct armband on for positive identification. ko1 15:59 Provided Education on: na. ko1 15:59 No provider procedures requiring assistance completed. Patient did not have IV access ko1 during this emergency room visit. Administered Medications: 15:57 Drug: Clindamycin PO 300 mg PO once Route: PO; ko1 15:57 Drug: Acetaminophen-Codeine PO (300 mg-30 mg) 2 tabs PO once; RASS on ADMIN: Combtv4, ko1 Very Agttd3, Agttd2, Rstlss1, AlertClm0, Drwsy-1, Lt Sdtn-2, Mod Sdtn-3, Dp Sdtn-4, UnArsble-5 Route: PO; Medication: 15:59 VIS not applicable for this client. ko1 Outcome: 16:00 Discharge ordered by MD. cp 16:26 Discharged to home ambulatory, with family, ko1 16:26 Condition: good 16:26 Discharge instructions given to patient, family, Instructed on discharge instructions, follow up and referral plans. medication usage, Demonstrated understanding of instructions, follow-up care, medications, Prescriptions given X 2, 16:27 Patient left the ED. ko1 Signatures: Lorenzo Francisco PA PA cp Garcia, Rubi rg4 Anais Torres, RN RN ko1 Corrections: (The following items were deleted from the chart) 15:46 15:45 PMHx: Hypertensive disorder; ko1 ko1
[2023-09-29 02:23] VITALS: BP 132/88; TEMP 98.3; O2SAT 99
== END ==
LOC: ER 15:36
DX: K08.89 Other specified disorders of teeth and supporting structures (principal)

== ENCOUNTER 2023-11-30 17:06 | Emergency (ER) | payer SELFPAY ==
--- OUTSIDE RECORDS SUMMARY | 2023-11-30 17:14 | XMS REPORT | Continuity of Care Document ---
Author Name Unknown Address [address] [place] [address] [facility] thconnect Address [address] [place] [address] Care Team Providers Care Speech Language Pathologist Prn Name Role Phone MAG Attending Clinician Unavailable CHARISSE LEPE Attending Clinician Unavailable CABRERA VILLAFANA Attending Clinician Unavailable Kathryn Merrill Attending Clinician MAG Admitting Clinician Unavailable Problems Condition Name Condition Details Condition Category Status Onset Date Resolution Date Last Treatment Date Treating Clinician Comments Source Cervical high risk human papillomav irus (HPV) DNA test positive Cervical high risk human papillomav irus (HPV) DNA test positive Disease Active 01-27 00:00: 00 Overview: HPV +,Pap Smear results negative, Cotesting needed at 12 months or HPV DNA typing. [facility] Overweight (BMI 25.0-29.9) Overweight (BMI 25.0-29.9) Disease Active 01-25 00:00: 00 [facility] Screen for STD (sexually transmitte d disease) Screen for STD (sexually transmitte d disease) Disease Active 01-25 00:00: 00 [facility] History of bilateral tubal ligation History of bilateral tubal ligation Disease Active 01-01 00:00: 00 [facility] Heavy menses Heavy menses Disease Active 01-01 00:00: 00 [facility] Bipolar 1 disorder, depressed Bipolar 1 disorder, depressed Disease Active 04-18 00:00: 00 [facility] Allergies, Adverse Reactions, Alerts Allergy Name Allergy Type Status Severity Reaction(s) Onset Date Inactive Date Treating Clinician Comments Source Tramadol Propensi ty to adverse reaction s Active Hallucinatio ns 04-24 00:00: 00 [facility] TRAMADOL DRUG INGREDI Active Hallucinates 04-24 00:00: 00 [facility] Penicill ins Propensi ty to adverse reaction s Active Hives 04-18 00:00: 00 [facility] PENICILL INS Drug Class Active Hives 04-18 00:00: 00 [facility] Social History Social Habit Start Date Stop Date Quantity Comments Source [facility] Exposure to SARS-CoV-2 (event) Not sure [facility] Tobacco use and exposure 2020-04-24 00:00:00 2020-04-24 00:00:00 Never used [facility] Alcohol intake 2020-04-24 00:00:00 2020-04-24 00:00:00 Current non-drinker of alcohol (finding) [facility] Smoking Status Start Date Stop Date Source Never smoker [facility] Medications Ordered Medication Name Filled Medication Name Start Date Stop Date Current Medication? Ordering Clinician Indication Dosage Frequency Signature (SIG) Comments Components Source ibuprofen (IBU) tablet 600 mg 04-24 22:45: 00 04-24 21:45 :00 No 600mg 600 mg, Oral, ONCE, 1 dose, Thu04/24/20 at 1745, MELYSSA [facility] phenazopyri dine (PYRIDIUM) tablet 200 mg 04-24 22:45: 00 04-24 21:45 :00 No 200mg 200 mg, Oral, ONCE NOW, 1 dose, Thu04/24/20 at 1745, Routine [facility] ibuprofen 600 mg tablet 04-24 00:00: 00 Yes [id number] 600mg Take 1 tablet by mouth every 6 (six) hours as needed for Pain (scale 4-6). [facility] Nitrofurant oin&Nit. Macrocryst 100 mg capsule 04-24 00:00: 00 05-02 04:59 :00 No [id number] 100mg Take 1 capsule by mouth 2 (two) times daily for 7 days. [facility] phenazopyri dine (PYRIDIUM) 200 mg tablet 04-24 00:00: 00 04-28 04:59 :00 No [id number] 200mg Take 1 tablet by mouth 3 (three) times daily for 3 days. [facility] Vital Signs Vital Name Observation Time Observation Value Comments S ource Systolic blood pressure 2020-04-24 21:28:00 121 mm[Hg] [facility] Diastolic blood pressure 2020-04-24 21:28:00 84 mm[Hg] [facility] Heart rate 2020-04-24 21:28:00 93 /min [facility] Body temperature 2020-04-24 21:28:00 37.44 Paige [facility] Respiratory rate 2020-04-24 21:28:00 16 /min [facility] Body height 2020-04-24 21:28:00 162.6 cm [facility] Body weight 2020-04-24 21:28:00 77.111 kg [facility] BMI 2020-04-24 21:28:00 29.18 kg/m2 [facility] Oxygen saturation in Arterial blood by Pulse oximetry 2020-04-24 21:28:00 98 /min [facility] Systolic blood pressure 2020-04-24 21:28:00 121 mm[Hg] [facility] Diastolic blood pressure 2020-04-24 21:28:00 84 mm[Hg] [facility] Heart rate 2020-04-24 21:28:00 93 /min [facility] Body temperature 2020-04-24 21:28:00 37.44 Paige [facility] Respiratory rate 2020-04-24 21:28:00 16 /min [facility] Body height 2020-04-24 21:28:00 162.6 cm [facility] Body weight 2020-04-24 21:28:00 77.111 kg [facility] BMI 2020-04-24 21:28:00 29.18 kg/m2 [facility] Oxygen saturation in Arterial blood by Pulse oximetry 2020-04-24 21:28:00 98 /min [place] [facility] Procedures Procedure Date / Time Performed Performing Clinicia n Source URINALYSIS 2020-04-24 21:34:00 Kathryn Corona [facility] POCT TEST 2020-04-24 21:34:00 Kathryn Corona [facility] NOTICE OF PRIVACY PRACTICES 2020-04-24 21:18:13 Doctor Unassigned, [place] [facility] CONSENT/REFUSAL FOR DIAGNOSIS AND TREATMENT 2020-04-24 21:18:02 Doctor Unassigned, [facility] [place] [facility] Encounters Start Date/Time End Date/Time Encounter Type Admission Type Attending [facility] Care Facility Care Department Encounter ID Source 2021-06-21 15:21:52 Emergency [facility] [id number] [facility] 2023-09-03 15:51:12 2023-09-03 15:51:12 Outpatient SFA [facility] [...] 04:39:00 2022-03-04 04:39:00 Outpatient JUAN PABLOGURPREET ROBERTSON ARZORAN [facility] [id number] Vladimir gracia [facility] [place], [facility] 2021-03-05 15:00:00 2021-03-05 15:00:00 Outpatient CHARISSE LEPE [facility] [id number] [facility] 2021-03-05 00:00:00 2021-03-05 00:00:00 Outpatient CHARISSE SANDHU [facility] [id number] [facility] 2021-02-07 00:00:00 2021-02-07 00:00:00 Outpatient CHARISSE SANDHU [facility] [id number] [facility] 2021-02-07 00:00:00 2021-02-07 00:00:00 Outpatient CHARISSE SANDHU [facility] [id number] [facility] 2020-10-02 16:20:00 2020-10-02 16:20:00 Outpatient CABRERA ROWE [facility] [id number] [facility] 2020-04-24 16:30:00 2020-04-24 17:27:00 Emergency Kathryn Corona [facility] [id number] 2020-04-24 16:30:00 2020-04-24 17:27:00 Emergency Kathryn Corona [facility] [id number] [facility] Results Test Description Test Time Test Comments Results Result Co mments Source T4 (THYROXINE)2023-01-03 06:59:45* Test Item Value Reference Range Interpretation Comme nts T4 (THYROXINE) (test code = 2819) 8.3 UG/DL 4.5-10.5 UNLESS OTHERW ISE INDICATED, ALL TESTING PERFORMED AT [facility] [address] [place] [address] SHIPPING ASSISTANT: LAUREN ROBIN M.D. [place] NUMBER [id number] [facility] [place]. [id number] COMPREHENSIVE METABOLIC [id number] 04:55:16* Test Item Value Reference Range Interpretation Comme nts GLUCOSE (test code = 7) 95 MG/DL 70-99 BUN (test code = 2207) 12 MG/DL 6-20 CREATININE (test code = 2214) 0.82 MG/DL 0.60-1.30 eGFR (2020 CKD-EPI) (test code = 12792) 94 ML/MIN/1.73 >60 CALC BUN/CREAT (test code [...] code = 2219) 11 U/L 5-40 LIPID [id number] 04:55:16* Test Item Value Reference Range Interpretation [...] SPECIMENS. FOR MOREINFORMATION, SEE CLIENT ANNOUNCEMENT AT [email or web address] RISK RATIO LDL/HDL (test code = 2238) 2.27 RATIO <3.22 HEMOGLOBIN [id number] 03:34:22* Test Item Value Reference Range Interpretation Comme nts HEMOGLOBIN A1c (test code = 32092) 5.9 % 4.2-5.6 H [employer] GUIDELINES FOR HGB A1C: [...] ALL TESTING PERFORMED [facility] [address] [place] [address] SHIPPING ASSISTANT: SERENE MOY M.D. CLIA NUMBER [id number] [facility] [place]. [id number] TSH, THIRD [id number] 05:45:14* Test Item Value Reference Range Interpretation Comme nts TSH, THIRD GENERATION (test code = 2821) <0.010 UIU/ML 0.400-4.100 L UNLESS OTHERWISE INDICATED, ALL TESTING PERFORMED [facility] [address] [place] [address] SHIPPING ASSISTANT: SERENE MOY M.D. CLIA NUMBER [id number] [place]. [id number] VAGINAL PATHOGENS DNA [id number] 08:24:47* Test Item Value Reference Range Interpretation Comme nts SUBHASH SPECIES (test code = 79746) TEST NOT PERFORMED NEGATIVE NO SPECIMEN RECEIVED FOR TESTING. CHARGES DELETED. G. VAGINALIS (test code = ) TEST NOT PERFORMED NEGATIVE NO SPECIMEN RECEIVED FOR TESTING. CHARGES DELETED. T. VAGINALIS (test code = 45953) TEST NOT PERFORMED NEGATIVE NO SPECIMEN RECEIVED FOR TESTING. CHARGES DELETED. UNLESS OTHERWISE INDICATED, ALL TESTING PERFORMED [facility] [employer] [address] [place] [address] SHIPPING ASSISTANT: SERENE MOY M.D. CLIA NUMBER [id number] [place]. [id number] LIPID [id number] 03:48:14* Test Item Value Reference Range Interpretation Comme nts CHOLESTEROL (test code = 2210) 146 MG/DL <200 TRIGLYCERIDES (test code = 2232) 54 MG/DL <150 HDL CHOLESTEROL (test code = 2220) 41 MG/DL >39 CALC LDL CHOL (test code = 2237) 91 MG/DL <100 NOTE: CALCULATED LDL IS BASED ON DNE-HIGUERA METHOD WHICHINCLUDES ADJUSTABLE TRIGLYCERIDE:VLDL CHOLESTEROL RATIO.THIS FACTOR VARIES BY MEASURED TRIGLYCERIDE AND NON-HDLCHOLESTEROL CONCENTRATIONS WITH INCREASED CALCULATED LDL SEENIN HIGHER TRIGLYCERIDE OR LOWER NON-HDL SPECIMENS. FOR MOREINFORMATION, SEE CLIENT ANNOUNCEMENT AT [email or web address] /[email or web address] RISK RATIO LDL/HDL (test code = 2238) 2.22 RATIO <3.22 COMPREHENSIVE METABOLIC [id number] 03:48:14* Test Item Value Reference Range Interpretation Comme nts GLUCOSE (test code = 2217) 82 MG/DL 70-99 BUN (test code = 2208) 14 MG/DL 6-20 CREATININE (test code = 2214) 0.67 MG/DL 0.60-1.30 eGFR (2020 CKD-EPI) (test code = 39833) 116 ML/MIN/1.73 >60 CALC BUN/CREAT (test code [...] code = 2206) 0.2 MG/DL See_Comment [Automated ChangeAgain.Me] The system which generated this result transmitted reference range: <=1.2. The reference range was not used to interpret this result as normal/abnormal. ALKALINE PHOSPHATASE (test code = 2203) 140 U/L 40-112 H AST (test code = 8) 17 U/L 9-40 ALT (test code = 2218) 14 U/L 5-40 HEPATIC FUNCTION [id number] 03:48:14* Test Item Value Reference Range Interpretation Comme nts PROTEIN, TOTAL (test code = 2228) 8.2 G/DL 6.1-8.3 ALBUMIN (test code = 2200) 4.3 G/DL 3.5-5.2 BILIRUBIN, TOTAL (test code = 2206) 0.2 MG/DL See_Comment [Automated Metric Insightsa ge] The system which generated this result transmitted reference range: <=1.2. The reference range was not used to interpret this result as normal/abnormal. BILIRUBIN, DIRECT (test code = 2021) 0.1 MG/DL 0.0-0.3 ALKALINE PHOSPHATASE (test code = 2203) 140 U/L 40-112 H AST (test code = 8) 17 U/L 9-40 ALT (test code = 9) 14 U/L 5-40 HEMOGLOBIN [id number] 03:35:24* Test Item Value Reference Range Interpretation Comme nts HEMOGLOBIN A1c (test code = 93273) 5.5 % 4.2-5.6 CBC W/AUTO DIFF WITH [id number] 03:06:39* Test Item Value Reference Range Interpretation [...] 0.00-0.10 ABS NUCLEATED RBCS (test code = 08517) 0.00 K/UL 0.00-0.11 [id number] 21:59:00* Test Item Value Reference Range Interpretation Comme nts APPEARANCE (test code = 1711211522) Hazy Clear A COLOR (test code = 2084168260) Yellow Yellow PH (test code = 4825128831) 4.8-8.0 SP GRAVITY (test code = 1509137548) 1.003-1.030 GLU U QUAL (test code = 2790215085) Normal Normal BLOOD (test code = 7392698000) 2+ Negative A KETONES (test code = 6435636220) Negative Negative PROTEIN (test code = 2887-8) Negative Negative UROBILIN (test code = 0488557240) 4.0 mg/dL Normal A BILIRUBIN (test code = 2074574335) Negative Negative NITRITE (test code = 3288605605) Negative Negative LEUK KAIN (test code = 3834793039) 75/uL Negative A RBC/HPF (test code = 2639984663) See_Comment H [Automated messa ge] The system which generated this result transmitted reference range: 0 - 3 HPF. The reference range was not used to interpret this result as normal/abnormal. WBC/HPF (test code = 2189866105) See_Comment H [Automated messa ge] The system which generated this result transmitted reference range: 0 - 5 HPF. The reference range was not used to interpret this result as normal/abnormal. BACTERIA (test code = 4152233560) Many Negative A MUCOUS (test code = 3123132079) Marked Negative LPF A SQ EPITH (test code = 1992687528) HPF Lab Interpretation (test code = 22586-0) [id number] 21:34:00* Test Item Value Reference Range Interpretation Comme nts POCT PREG (test code = 1605) Negative On board controls acceptable with C Line (test code = 3574) present POCT PREG LOT # (test code = 3575) [id number] POCT PREG TEST DATE ( test code = 3576) 03/23/2021 Lab Interpretation (test cod e = 59791-2) Normal [facility]
[2023-11-30] MEDS ORDERED: KETOROLAC 30 MG/ML INJ ONE ×2 (17:51→20:10)
[2023-11-30] MEDS ORDERED: ONDANSETRON 4 MG/2 ML VIAL ONE (17:51)
[2023-11-30] MEDS ORDERED: NA CHLORIDE 0.9% 0 ML ONE (17:51)
[2023-11-30 20:08] LABS: Absolute Eosinophils 0.3 K/uL (0-0.5); Absolute Lymphocytes (CBC) 2.3 K/uL (0.7-4.9); Absolute Monocytes 0.4 K/uL (0.1-1.3); Absolute Neutrophil 4.4 K/uL (1.8-8.0); Basophils % 0.3 % (0-1.3); Eosinophils % 4.6 % (0-4.4); Hematocrit 41.2 % (36.0-45.0); Hemoglobin 13.8 g/dL (12.0-15.0); Lymphocytes % 30.8 % (15.3-44.8); MCH 30.7 pg (27.0-35.0); MCHC 33.4 g/dL (32.0-36.0); MCV 91.9 fL (80-100); MPV 9.7 fL (7.6-11.3); Monocytes % 5.9 % (3.3-12.3); Neutrophils % 58.4 % (41.7-73.7); Platelets 225 thou/uL (152-406); RBC Red Blood Cell Count 4.48 M/uL (3.86-4.86); Red Cell Distribution Width 12.7 % (12.1-15.2)
[2023-11-30] MEDS ORDERED: PROMETHAZINE INJ 25 MG/ML AMP ONE (20:10)
[2023-11-30 20:29] LABS: Albumin 3.7 g/dL (3.4-5.0); Albumin/Globulin Ratio 0.7 (1.1-1.8); Anion Gap 6.6 mEq/L (5.0-15.0); Bilirubin Total 0.4 mg/dL (0.2-1.0); Globulin 5.2 g/dL (2.3-3.5); Potassium 3.6 mEq/L (3.5-5.1); Protein, Total 8.9 g/dL (6.4-8.2)
--- NOTE | 2023-11-30 20:45 | RAD REPORT ---
EXAM DESCRIPTION: CT - Abdomen Pelvis Wo Contrast - 11/30/2023 8:37 pm CLINICAL HISTORY: Abdominal pain. lower abdomen pain COMPARISON: <Comparisons> TECHNIQUE: CT imaging of the abdomen and pelvis was performed without contrast. Solid organ, bowel a nd vascular assessment is limited due to lack of IV and oral contrast. All CT scans are performed using dose optimization technique as appropriate and may include automated exposure control or mA/KV adjustment according to patient size. FINDINGS: The lower lung james are clear. The liver, spleen, pancreas, adrenal glands and kidneys are within normal limits for a limited non-co ntrast examination. No bowel obstruction, free air, free fluid or abscess. The appendix is normal. The osseous structures are within normal limits. IMPRESSION: No acute intra-abdominal or pelvic findings. A limited non-contrast examination was performed as detailed.
[2023-11-30 20:46] LABS: Specific Gravity > 1.030 (1.005-1.030)
[2023-11-30 20:50] LABS: Specific Gravity > 1.030 (1.005-1.030); Urine Bacteria <20 /HPF (<20); Urine Bilirubin NEGATIVE (Negative); Urine Blood 2+ (Negative); Urine Clarity Extremely Turbid (Clear); Urine Color Yellow (Yellow); Urine Culture Reflex Order REFLEXED; Urine Glucose NEGATIVE (Negative); Urine Ketones NEGATIVE (Negative); Urine Microscopic Reflex YN ORDER UMIC; Urine Mucus 3+ /HPF (None Seen); Urine Nitrite NEGATIVE (Negative); Urine Protein 1+ (Negative); Urine RBC >50 /HPF (None Seen); Urine Urobilinogen 2+ (Normal); Urine WBC 20-50 /HPF (<5); Urine Yeast (Budding) Trace /HPF (None Seen); Urine pH 6.5 (5.0-7.0)
--- NOTE | 2023-11-30 21:13 | ER ---
Nurse's Notes [facility] Name: Aneta Wang Age: 38 yrs Sex: Female : 1985 Arrival Date: 11/30/2023 Time: 17:06 Bed 15 Private MD: Diagnosis: UTI/ Urinary tract infection, site not specified Presentation: 11/29 17:23 Chief complaint: Patient states: "My stomach has been burning all day" pt reports lower as6 right sided abdominal pain. Coronavirus screen: At this time, the client does not indicate any symptoms associated with coronavirus-19. Ebola Screen: No symptoms or risks identified at this time. Initial Sepsis Screen: Does the patient meet any 2 criteria? No. Patient's initial sepsis screen is negative. Does the patient have a suspected source of infection? No. Patient's initial sepsis screen is negative. Risk Assessment: Do you want to hurt yourself or someone else? Patient reports no desire to harm self or others. Onset of symptoms was November 30, 2023. 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 - Infectious Disease History:: Denies. - Social history:: Smoking status: Patient denies any tobacco usage or history of. Screenin:30 [facility] ED Fall Risk Assessment (Adult) History of falling in the last 3 months, rs5 including since admission No falls in past 3 months (0 pts) Confusion or Disorientation No (0 pts) Intoxicated or Sedated No (0 pts) Impaired Gait No (0 pts) Mobility Assist Device Used No (0 pt) Altered Elimination No (0 pt) Score/Fall Risk Level 0 - 2 = Low Risk Oriented to surroundings, Maintained a safe environment. Abuse screen: Denies threats or abuse. Nutritional screening: No deficits noted. Tuberculosis screening: No symptoms or risk factors identified. Assessment: 17:30 General: Appears in no apparent distress. uncomfortable, Behavior is calm, cooperative. rs5 Pain: Complains of pain in RLQ Pain currently is 8 out of 10 on a pain scale. Quality of pain is described as aching, Is continuous. Neuro: Level of Consciousness is awake, alert, obeys commands, Oriented to person, place, time, situation. Cardiovascular: Patient's skin is warm and dry. Rhythm is regular. Respiratory: Airway is patent Respiratory effort is even, unlabored, Respiratory pattern is regular, symmetrical. GI: Abdomen is round non-distended, Bowel sounds present X 4 quads. Abd is soft and non tender X 4 quads. : No signs and/or symptoms were reported regarding the genitourinary system. EENT: No signs and/or symptoms were reported regarding the EENT system. Derm: Skin is intact, Skin is dry, Skin is normal. Musculoskeletal: Range of motion: intact in all extremities. 19:00 General: Appears in no apparent distress. uncomfortable, Behavior is calm, cooperative, vc1 appropriate for age. Pain: Complains of pain in abdomen Pain does not radiate. Pain currently is 8 out of 10 on a pain scale. Quality of pain is described as aching, Is continuous. Neuro: Level of Consciousness is awake, alert, obeys commands, Oriented to person, place, time, situation. Cardiovascular: Patient's skin is warm and dry. Rhythm is regular. GI: Abdomen is round non-distended, Bowel sounds present X 4 quads. Abd is soft and non tender. : No signs and/or symptoms were reported regarding the genitourinary system. EENT: No deficits noted. No signs and/or symptoms were reported regarding the EENT system. Derm: Skin is intact, is healthy with good turgor, Skin is dry, Skin is normal. Musculoskeletal: No deficits noted. Circulation, motion, and sensation intact. Range of motion: intact in all extremities. 21:30 Reassessment: Patient and/or family updated on plan of care and expected duration. Pain vc1 level reassessed. Patient is alert, oriented x 3, equal unlabored respirations, skin warm/dry/pink. Patient states feeling better. Patient states symptoms have improved. 21:33 General: discharge pending shot time. vc1 Vital Signs: 17:23 BP 115 / 80; Pulse 78; Resp 19 S; Temp 98(TE); Pulse Ox 100% on R/A; Weight 88.45 kg as6 (R); Height 5 ft. 4 in. (R); Pain 10/10; 19:30 BP 123 / 88; Pulse 78; Resp 16; Pulse Ox 100% ; vc1 21:00 BP 119 / 83; Pulse 78; Resp 18; Temp 98.2; Pulse Ox 100% ; vc1 17:23 Body Mass Index 33.47 (88.45 kg, 162.56 cm) as6 17:23 Pain Scale: Adult as6 ED Course: 17:09 Patient arrived in ED. mg5 17:10 Lorenzo Francisco PA is PHCP. cp 17:10 Vince Arboleda MD is Attending Physician. cp 17:27 Triage completed. as6 17:27 Arm band placed on. as6 17:30 Patient has correct armband on for positive identification. Placed in gown. Bed in low rs5 position. Call light in reach. Side rails up X2. 17:30 No provider procedures requiring assistance completed. rs5 17:41 Missed attempt(s): 24 gauge in right hand. Bleeding controlled, band aid applied, rs5 catheter tip intact. 17:42 Magdy Junior, RN is Primary Nurse. rs5 17:49 Missed attempt(s): 22 gauge in right hand. by tech. Bleeding controlled, band aid rs5 applied, catheter tip intact. 18:01 Missed attempt(s): 24 gauge in right wrist. intact, bleeding controlled, No ty redness/swelling at site. Pressure dressing applied. 18:05 Missed attempt(s): 22 gauge in right antecubital area. intact, bleeding controlled, No ty redness/swelling at site. Pressure dressing applied. 19:20 Warm blanket given. vk 20:38 Abdomen In Process Unspecified. EDMS 21:35 Provided Education on: water intake, continue abx. vc1 22:33 Patient did not have IV access during this emergency room visit. vc1 Administered Medications: 19:52 Not Given (Physician Discretion): TORadol - [id number] mg IVP once cp 19:52 Not Given (Physician Discretion): ondansetron 4 mg IVP once; over 2 minutes cp 20:07 Not Given (Physician Discretion): ns 0.9% 1000 ml IV at 1 bolus Per protocol; 1000 mL vc1 bolus 20:17 Drug: Promethazine IM 25 mg IM once Route: IM; Site: right deltoid; vc1 21:47 Follow up: Response: No adverse reaction; Marked relief of symptoms vc1 20:17 Drug: Ketorolac IM 30 mg IM once Route: IM; Site: left deltoid; vc1 21:47 Follow up: Response: No adverse reaction; Marked relief of symptoms vc1 21:04 CANCELLED (Physician Discretion): rocephin1 grams IV at calculated rate once; Given cp slow IV push per pharmacy instructions 21:32 Drug: Rocephin (cefTRIAXone) IM 1 grams IM once Route: IM; Site: right vastus lateralis;vc1 21:47 Follow up: Response: No adverse reaction vc1 Medication: 18:45 VIS not applicable for this client. rs5 Outcome: 21:12 Discharge ordered by MD. cp 21:47 Patient left the ED. vc1 21:47 Condition: good 21:47 Discharge instructions given to patient, Instructed on discharge instructions, follow up and referral plans. medication usage, Demonstrated understanding of instructions, follow-up care, medications, Prescriptions given X 2, 21:47 Discharged to home ambulatory, with family, vc1 Signatures: Dispatcher [employer] EDMS Lorenzo Francisco PA PA cp Slawson, Ashby, RN RN as6 Kaye Lawrence RN RN vc1 Magdy Junior RN RN rs5 Marina Osei mgJessie Agarwal Tylor ty Corrections: (The following items were deleted from the chart) 18:48 17:41 Missed attempt(s): 24 gauge in right hand. rs5 rs5 22:32 22:02 Patient left the ED. vc1 vc1 22:32 22:00 Condition: good vc1 vc1 22:32 22:00 Discharged to home ambulatory, with family, vc1 vc1 22:32 22:00 Discharge instructions given to patient, Instructed on discharge instructions, vc1 follow up and referral plans. medication usage, Demonstrated understanding of instructions, follow-up care, medications, Prescriptions given X 2, vc1
--- NOTE | 2023-11-30 21:13 | EDPHYS ---
Physician Documentation [facility] Name: Aneta Wang Age: 38 yrs Sex: Female : 1985 Arrival Date: 11/30/2023 Time: 17:06 Bed 15 Private MD: ED Physician Vince Arboleda HPI: 11/29 17:30 This 38 yrs old Black Female presents to ER via Ambulatory with complaints of Abdominal cp Pain. 17:30 The patient presents with abdominal pain in the lower abdomen. cp 17:30 Onset: The symptoms/episode began/occurred today. cp 17:30 The symptoms do not radiate. Associated signs and symptoms: Pertinent positives: cp nausea, Pertinent negatives: chest pain, constipation, diarrhea, vomiting. The symptoms are described as burning. Severity of pain: in the emergency department the pain is unchanged despite home interventions. 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 - Infectious Disease History:: Denies. - Social history:: Smoking status: Patient denies any tobacco usage or history of. ROS: 17:35 Constitutional: Negative for body aches, chills, fever, poor PO intake, cp 17:35 Eyes: Negative for injury, pain, redness, and discharge, cp 17:35 ENT: Negative for drainage from ear(s), ear pain, sore throat, difficulty swallowing, difficulty handling secretions, 17:35 Cardiovascular: Negative for chest pain, palpitations, 17:35 Respiratory: Negative for cough, shortness of breath, wheezing, 17:35 Abdomen/GI: Positive for abdominal pain, nausea, of the suprapubic area and right lower quadrant, Negative for vomiting, diarrhea, constipation, anorexia, 17:35 : Negative for hematuria, flank pain, vaginal bleeding, vaginal discharge, 17:35 Neuro: Negative for altered mental status, dizziness, headache, numbness, syncope, weakness, 17:35 All other systems are negative, Exam: 17:40 Constitutional: The patient appears in no acute distress, alert, awake, non-toxic, well cp developed, well nourished, uncomfortable, 17:40 Head/Face: Normocephalic, atraumatic. cp 17:40 Eyes: Periorbital structures: appear normal, Conjunctiva: normal, no exudate, no injection, Sclera: no appreciated abnormality, Lids and lashes: appear normal, bilaterally, 17:40 ENT: External ear(s): are unremarkable, Nose: is normal, Mouth: Lips: moist, Oral mucosa: pink and intact, moist, Posterior pharynx: is normal, airway is patent, no erythema, no exudate, 17:40 Chest/axilla: Inspection: normal, 17:40 Cardiovascular: Rate: normal, Rhythm: regular, 17:40 Respiratory: the patient does not display signs of respiratory distress, Respirations: normal, no use of accessory muscles, no retractions, labored breathing, is not present, Breath sounds: are clear throughout, no decreased breath sounds, no stridor, no wheezing, 17:40 Abdomen/GI: Inspection: abdomen appears normal, Bowel sounds: active, all quadrants, Palpation: soft, in all quadrants, moderate abdominal tenderness, in the suprapubic area and right lower quadrant, rebound tenderness, is not appreciated, involuntary guarding, is not appreciated, 17:40 Back: pain, is absent, ROM is normal, 17:40 Skin: no rash present. Vital Signs: 17:23 BP 115 / 80; Pulse 78; Resp 19 S; Temp 98(TE); Pulse Ox 100% on R/A; Weight 88.45 kg as6 (R); Height 5 ft. 4 in. (R); Pain 10/10; 19:30 BP 123 / 88; Pulse 78; Resp 16; Pulse Ox 100% ; vc1 21:00 BP 119 / 83; Pulse 78; Resp 18; Temp 98.2; Pulse Ox 100% ; vc1 17:23 Body Mass Index 33.47 (88.45 kg, 162.56 cm) as6 17:23 Pain Scale: Adult as6 MDM: 17:36 Patient medically screened. cp 21:10 Data reviewed: vital signs, nurses notes, lab test result(s), radiologic studies, CT cp scan, and as a result, I will discharge patient. 21:10 Differential diagnosis: appendicitis, gastritis, non-specific abd pain, Ovarian cp Torsion, Pelvic Inflammatory Disease, Pyelonephritis, Ureterolithiasis, urinary tract infection. Counseling: I had a detailed discussion with the patient and/or guardian regarding the historical points, exam findings, and any diagnostic results supporting the discharge/admit diagnosis, lab results, radiology results, to return to the emergency department if symptoms worsen or persist or if there are any questions or concerns that arise at home. Response to treatment: the patient's symptoms have markedly improved after treatment, and as a result, I will discharge patient. Special discussion: Based on the patient's Hx, exam, and Dx evaluation, there is no indication for emergent surgery or inpatient Tx. It is understood by the patient/guardian that if the Sx's persist or worsen they need to return immediately for re-evaluation. 11/29 17:25 Order name: CBC with Diff; Complete Time: 20:51 cp 11/29 20:51 Interpretation: Normal except: EOSINOPHIL % 4.6. cp 11/29 17:25 Order name: CMP; Complete Time: 20:51 cp 11/29 20:52 Interpretation: Normal except: AST 13; TP 8.9; GLOB 5.2; A/G 0.7. cp 11/29 17:25 Order name: Lipase; Complete Time: 20:51 cp 11/29 17:25 Order name: Test, Urine; Complete Time: 20:51 cp 11/29 17:25 Order name: Urinalysis w/ reflexes; Complete Time: 20:51 cp 11/29 20:52 Interpretation: Normal except: [facility] Extremely Turbid; Urine SG > 1.030; UBLD 2+; UPROT cp 1+; UUROB 2+; UESTR 500; UWBC 20-50; URBC >50; MUCUS 3+; BYST Trace. 11/29 20:53 Order name: Urine Culture EDMS 11/29 20:37 Order name: Abdomen ; Complete Time: 20:51 EDMS 11/29 20:52 Interpretation: Report reviewed. cp Administered Medications: 19:52 Not Given (Physician Discretion): TORadol - [id number] mg IVP once cp 19:52 Not Given (Physician Discretion): ondansetron 4 mg IVP once; over 2 minutes cp 20:07 Not Given (Physician Discretion): ns 0.9% 1000 ml IV at 1 bolus Per protocol; 1000 mL vc1 bolus 20:17 Drug: Promethazine IM 25 mg IM once Route: IM; Site: right deltoid; vc1 21:47 Follow up: Response: No adverse reaction; Marked relief of symptoms vc1 20:17 Drug: Ketorolac IM 30 mg IM once Route: IM; Site: left deltoid; vc1 21:47 Follow up: Response: No adverse reaction; Marked relief of symptoms vc1 21:04 CANCELLED (Physician Discretion): rocephin1 grams IV at calculated rate once; Given cp slow IV push per pharmacy instructions 21:32 Drug: Rocephin (cefTRIAXone) IM 1 grams IM once Route: IM; Site: right vastus lateralis;vc1 21:47 Follow up: Response: No adverse reaction vc1 Disposition Summary: 11/30/23 21:12 Discharge Ordered Notes: Location: Home cp Problem: new cp Symptoms: have improved cp Condition: Stable cp Diagnosis - UTI/ Urinary tract infection, site not specified cp Followup: cp - With: Private Physician - When: 2 - 3 days - Reason: Worsening of condition Discharge Instructions: - Discharge Summary Sheet cp - Urinary Tract Infection, Adult cp Forms: - Medication Reconciliation Form cp - Thank You Letter cp - Antibiotic Education cp - Prescription Opioid Use cp - Patient Portal Instructions cp - Leadership Thank You Letter cp - Work release form vc1 Prescriptions: - Ibuprofen 800 mg Oral Tablet - take 1 tablet ORAL route every 8 hours As needed take with food; 30 tablet; cp Refills: 0, Product Selection Permitted - Macrobid 100 mg Oral Capsule - take 1 capsule ORAL route every 12 hours for 7 days; 14 capsule; Refills: 0, cp Product Selection Permitted Signatures: Dispatcher [employer] EDMS Lorenzo Francisco PA PA cp Xavi Moise RN RN as6 Kaye Lawrence RN RN vc1 Corrections: (The following items were deleted from the chart) 17:26 17:26 CBC+H.LAB.BRZ ordered. EDMS EDMS 17:26 17:26 COMPREHENSIVE METABOLIC PANEL+C.LAB.BRZ ordered. EDMS EDMS 17:26 17:26 LIPASE+C.LAB.BRZ ordered. EDMS EDMS 17:26 17:26 Test, Urine+UC.LAB.BRZ ordered. EDMS EDMS 17:26 17:26 Urinalysis+U.LAB.BRZ ordered. EDMS EDMS 21:04 20:53 Rocephin IV 1 grams IV at calculated rate once; Given slow IV push per pharmacy cp instructions ordered. cp
[2023-11-30] MEDS ORDERED: CEFTRIAXONE 1000 MG/VIAL ONE (21:17)
[2023-11-30] MEDS ORDERED: LIDOCAINE 1% MPF 2 ML AMPULE ONE (21:17)
[2023-12-01 03:46] VITALS: BP 115/80; TEMP 98; O2SAT 100
== END 2023-11-30 22:02 | disposition home or self-care (01) ==
LOC: ER 17:06
DX: N39.0 Urinary tract infection, site not specified (principal)
CPT/HCPCS: 36415; 74176; 80053; 81001; 81025; 83690; 85025; 87086; 87088; 96372; 99284; J0696; J2405; J2550; J7030

== ENCOUNTER 2024-09-27 18:01 | Emergency (ER) | payer SELFPAY ==
--- OUTSIDE RECORDS SUMMARY | 2024-09-27 18:06 | XMS REPORT | Continuity of Care Document ---
Author Name Unknown Address [address] [facility] [address] [place] [address] [facility] thconnect Address [address] [facility] 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 Role Phone Fernie Su Primary Care Physician [phone] MAG Attending Clinician Unavailable CHARISSE LEPE Attending Clinician Unavailable CABRERA VILLAFANA Attending Clinician Unavailable Kathryn Merrill Attending Clinician [phone] MAG Admitting Clinician Unavailable Problems Condition Name Condition Details Condition Category Status Onset Date Resolution Date Last Treatment Date Treating Clinician Comments Source Cervical high risk human papillomav irus (HPV) DNA test positive Cervical high risk human papillomav irus (HPV) DNA test positive Disease Active 01-27 00:00: 00 Overview: HPV +,Pap Smear results negative, Cotesting needed at 12 months or HPV DNA typing. [facility] Overweight (BMI 25.0-29.9) Overweight (BMI 25.0-29.9) Disease Active 01-25 00:00: 00 [facility] Screen for STD (sexually transmitte d disease) Screen for STD (sexually transmitte d disease) Disease Active 01-25 00:00: 00 [facility] History of bilateral tubal ligation History of bilateral tubal ligation Disease Active 01-01 00:00: 00 [facility] Heavy menses Heavy menses Disease Active 01-01 00:00: 00 [facility] Bipolar 1 disorder, depressed Bipolar 1 disorder, depressed Disease Active 04-18 00:00: 00 [facility] Allergies, Adverse Reactions, Alerts Allergy Name Allergy Type Status Severity Reaction(s) Onset Date Inactive Date Treating Clinician Comments Source Penicill ins - CLASS Propensi ty to adverse reaction to drug Active 01-01 00:00: 00 Mannie Jones Penicill ins Propensi ty to adverse reaction to drug Active -14 00:00: 00 Mannie Jones Tramadol Propensi ty to adverse reaction s Active Hallucinatio ns 04-24 00:00: 00 [facility] TRAMADOL DRUG INGREDI Active Hallucinates 04-24 00:00: 00 [facility] Penicill ins Propensi ty to adverse reaction s Active Hives 04-18 00:00: 00 [facility] PENICILL INS Drug Class Active Hives 04-18 00:00: 00 [facility] Social History Social Habit Start Date Stop Date Quantity Comments Source [facility] Exposure to SARS-CoV-2 (event) Not sure [facility] Tobacco use and exposure 2020-04-24 00:00:00 2020-04-24 00:00:00 Never used [facility] Alcohol intake 2020-04-24 00:00:00 2020-04-24 00:00:00 Current non-drinker of alcohol (finding) [facility] Smoking Status Start Date Stop Date Source Never smoker [facility] Medications Ordered Medication Name Filled Medication Name Start Date Stop Date Current Medication? Ordering Clinician Indication Dosage Frequency Signature (SIG) Comments Components Source amoxicillin 875 mg tablet 2023-08 00:00: 00 Yes 1mg Mannie Jones chlorhexidi ne gluconate 0.12 % mouthwash 2023-08 0 00:00: 00 Yes 15% Mannie Jones TAKE ONE (1) CAPSULE(S) BY MOUTH EVERY SIX HOURS FOR 10 DAYS. 2-05 00:00: 00 Yes 300 Mannie Jones DICLOFEN SOD 50MG EC 2-05 00:00: 00 Yes 50 Mannie Jones USE DIRECTED. 1-11 00:00: 00 11-30 00:00 :00 No 68 Mannie Jonse TAKE 1 TABLET EVERY 8 HOURS NEEDED. 9-06 00:00: 00 11-30 00:00 :00 No 500 Mannie Jones TAKE 1 TABLET EVERY 8 HOURS WITH FOOD NEEDED. - 00:00: 00 11-30 00:00 :00 No 800 Mannie Jones TAKE 1 TABLET DAILY. 5- 00:00: 00 11-30 00:00 :00 No 10 Mannie Jones TAKE 1 TABLET ONCE DAILY. 5- 00:00: 00 11-30 00:00 :00 No 10 Mannie Jones TAKE ONE (1) TABLET(S) BY MOUTH EVERY SIX HOURS NEEDED FOR PAIN. 4-21 00:00: 00 Yes Mannie Jones Dose Unknown 0 4-03 00:00: 00 Yes Mannie Mellisa Jones Dose Unknown 0 3-31 00:00: 00 Yes Mannie Mellisa Jones Dose Unknown 0 3-31 00:00: 00 Yes Mannie Mellisa Jones Dose Unknown 0 3-16 00:00: 00 Yes Mannie Mellisa Jones Dose Unknown 0 3-16 00:00: 00 Yes Mannie Mellisa Jones Dose Unknown 0 2-21 00:00: 00 Yes Mannie Mellisa Jones Dose Unknown 0 2-17 00:00: 00 Yes Mannie Mellisa Jones Dose Unknown 0 2-09 00:00: 00 Yes Mannie Mellisa Jones Dose Unknown 0 6-28 00:00: 00 Yes Mannie Jones methimazole 5 mg tablet 6-17 00:00: 00 Yes 1mg Mannie Jones ibuprofen (IBU) tablet 600 mg 04-24 22:45: 00 04-24 21:45 :00 No 600mg 600 mg, Oral, ONCE, 1 dose, Gaurav 04/24/20 at 1745, MELYSSA [facility] phenazopyri dine (PYRIDIUM) tablet 200 mg 04-24 22:45: 00 04-24 21:45 :00 No 200mg 200 mg, Oral, ONCE NOW, 1 dose, Tu04/24/20 at 1745, Routine [facility] ibuprofen 600 mg tablet 04-24 00:00: 00 Yes [id number] 600mg Take 1 tablet by mouth every 6 (six) hours as needed for Pain (scale 4-6). [facility] Nitrofurant oin&Nit. Macrocryst 100 mg capsule 04-24 00:00: 00 05-02 04:59 :00 No [id number] 100mg Take 1 capsule by mouth 2 (two) times daily for 7 days. [facility] phenazopyri dine (PYRIDIUM) 200 mg tablet 04-24 00:00: 00 04-28 04:59 :00 No [id number] 200mg Take 1 tablet by mouth 3 (three) times daily for 3 days. [facility] Diflucan 150 mg tablet 03-14 00:00: 00 Yes 1mg Mannie Mellisa Robert ipratropium bromide 0.02 % solution for inhalation 03-02 00:00: 00 Yes % Mannie Mellisa Jones azithromyci n 250 mg tablet 02-28 00:00: 00 Yes mg Mannie Mellisa Robert ipratropium bromide 0.02 % solution for inhalation 02-28 00:00: 00 Yes 1% Mannie Mellisa Robert cetirizine 10 mg tablet 10-11 00:00: 00 Yes 1mg Mannie Mellisa Robert Macrobid 100 mg capsule 10-11 00:00: 00 Yes 1mg Mannie Jones Immunizations Ordered Immunization Name Filled Immunization Name Date Status Comments Source Moderna COVID-19 Vaccine Moderna COVID-19 Vaccine 2020-10-19 00:00:00 Completed Mannie Jones Moderna COVID-19 Vaccine Moderna COVID-19 Vaccine 2020-09-29 00:00:00 Completed Mannie Jones Influenza Virus Vaccine (3+ yrs) 2013-10-12 00:00:00 Completed [facility] Rubella 2009-02-23 00:00:00 Completed [facility] Td 2008-04-18 00:00:00 Completed [facility] Vital Signs Vital Name Observation Time Observation Value Paulino solis Systolic blood pressure 2020-04-24 21:28:00 121 mm[Hg] [facility] Diastolic blood pressure 2020-04-24 21:28:00 84 mm[Hg] [facility] Heart rate 2020-04-24 21:28:00 93 /min [facility] Body temperature 2020-04-24 21:28:00 37.44 Paige [facility] Respiratory rate 2020-04-24 21:28:00 16 /min [facility] Body height 2020-04-24 21:28:00 162.6 cm [facility] Body weight 2020-04-24 21:28:00 77.111 kg [facility] BMI 2020-04-24 21:28:00 29.18 kg/m2 [facility] Oxygen saturation in Arterial blood by Pulse oximetry 2020-04-24 21:28:00 98 /min [facility] Systolic blood pressure 2020-04-24 21:28:00 121 mm[Hg] [facility] Diastolic blood pressure 2020-04-24 21:28:00 84 mm[Hg] [facility] Heart rate 2020-04-24 21:28:00 93 /min [facility] Body temperature 2020-04-24 21:28:00 37.44 Paige [facility] Respiratory rate 2020-04-24 21:28:00 16 /min [facility] Body height 2020-04-24 21:28:00 162.6 cm [facility] Body weight 2020-04-24 21:28:00 77.111 kg [facility] BMI 2020-04-24 21:28:00 29.18 kg/m2 [facility] Oxygen saturation in Arterial blood by Pulse oximetry 2020-04-24 21:28:00 98 /min [facility] BP Systolic 2024-05-30 16:48:00 117 mm[Hg] Herbert mirna Pak Robert BP Diastolic 2024-05-30 16:48:00 74 mm[Hg] [facility] phen F Robert Weight Measured 2024-05-30 16:48:00 202.30 pounds Mannie F Robert Height Measured 2024-05-30 16:48:00 64.00 inches Mannie F Robert Body Temperature 2024-05-30 16:48:00 98.00 degrees Mannie F Robert Heart Rate 2024-05-30 16:48:00 73.00 /min Daly en F Robert Respiratory Rate 2024-05-30 16:48:00 18.00 /min Mannie F Robert BP Systolic 2023-09-03 15:54:00 109 mm[Hg] Step hen F Robert BP Diastolic 2023-09-03 15:54:00 73 mm[Hg] [place] phen F Robert Weight Measured 2023-09-03 15:54:00 208.20 pounds Mannie F Robert Height Measured 2023-09-03 15:54:00 64.00 inches Mannie F Robert Body Temperature 2023-09-03 15:54:00 97.70 degrees Mannie F Robert Heart Rate 2023-09-03 15:54:00 87.00 /min Daly en F Robert Respiratory Rate 2023-09-03 15:54:00 17.00 /min Mannie F Robert BP Diastolic 2023-08-31 16:11:00 83 mm[Hg] [place] phen F Robert Weight Measured 2023-08-31 16:11:00 209.40 pounds Mannie F Robert Height Measured 2023-08-31 16:11:00 64.00 inches Mannie F Robert Body Temperature 2023-08-31 16:11:00 97.70 degrees Mannie F Robert Heart Rate 2023-08-31 16:11:00 80.00 /min Daly en F Robert Respiratory Rate 2023-08-31 16:11:00 Mannie F Robert BP Systolic 2023-08-31 16:11:00 120 mm[Hg] Step hen F Robert BP Systolic 2023-06-18 08:30:00 113 mm[Hg] Step hen F Robert BP Diastolic 2023-06-18 08:30:00 79 mm[Hg] [place] phen F Robert Weight Measured 2023-06-18 08:30:00 207.00 pounds Mannie F Robert Height Measured 2023-06-18 08:30:00 64.00 inches Mannie F Robert Body Temperature 2023-06-18 08:30:00 97.90 degrees Mannie F Robert Heart Rate 2023-06-18 08:30:00 72.00 /min Daly en F Robert Respiratory Rate 2023-06-18 08:30:00 Mannie F Robert BP Systolic 2023-03-23 08:14:00 116 mm[Hg] Step hen F Robert BP Diastolic 2023-03-23 08:14:00 83 mm[Hg] [place] phen F Robert Weight Measured 2023-03-23 08:14:00 199.40 pounds Mannie F Robert Height Measured 2023-03-23 08:14:00 64.00 inches Mannie F Robert Body Temperature 2023-03-23 08:14:00 98.30 degrees Mannie F Robert Heart Rate 2023-03-23 08:14:00 78.00 /min Daly en F Robert Respiratory Rate 2023-03-23 08:14:00 17.00 /min Mannie F Robert BP Systolic 2023-01-01 14:53:00 120 mm[Hg] Step hen F Robert BP Diastolic 2023-01-01 14:53:00 60 mm[Hg] [place] phen F Robert Weight Measured 2023-01-01 14:53:00 Mannie F Robert Height Measured 2023-01-01 14:53:00 Mannie F Robert Body Temperature 2023-01-01 14:53:00 Mannie F Robert Heart Rate 2023-01-01 14:53:00 Daly en F Robert Respiratory Rate 2023-01-01 14:53:00 Mannie F Robert BP Systolic 2022-07-31 16:36:00 126 mm[Hg] Step hen F Robert BP Diastolic 2022-07-31 16:36:00 91 mm[Hg] [place] phen F Robert Weight Measured 2022-07-31 16:36:00 203.60 pounds Mannie F Robert Height Measured 2022-07-31 16:36:00 64.00 inches Mannie F Robert Body Temperature 2022-07-31 16:36:00 97.60 degrees Mannie F Robert Heart Rate 2022-07-31 16:36:00 108.00 /min Step hen F Robert Respiratory Rate 2022-07-31 16:36:00 Mannie F Robert BP Systolic 2022-05-15 16:19:00 112 mm[Hg] Step hen F Robert BP Diastolic 2022-05-15 16:19:00 77 mm[Hg] [place] phen F Robert Weight Measured 2022-05-15 16:19:00 199.80 pounds Mannie F Robert Height Measured 2022-05-15 16:19:00 64.00 inches Mannie F Robert Body Temperature 2022-05-15 16:19:00 97.80 degrees Mannie F Robert Heart Rate 2022-05-15 16:19:00 83.00 /min Daly en F Robert Respiratory Rate 2022-05-15 16:19:00 Mannie F Robert BP Systolic 2022-02-25 08:47:00 118 mm[Hg] Step hen F Robert BP Diastolic 2022-02-25 08:47:00 81 mm[Hg] [place] phen F Robert Weight Measured 2022-02-25 08:47:00 190.20 pounds Mannie F Robert Height Measured 2022-02-25 08:47:00 64.00 inches Mannie F Robert Body Temperature 2022-02-25 08:47:00 98.00 degrees Mannie F Robert Heart Rate 2022-02-25 08:47:00 80.00 /min Daly en F Robert Respiratory Rate 2022-02-25 08:47:00 16.00 /min Mannie F Robert BP Systolic 2021-12-06 09:06:00 121 mm[Hg] Step hen F Robert BP Diastolic 2021-12-06 09:06:00 87 mm[Hg] [place] phen F Robert Weight Measured 2021-12-06 09:06:00 183.80 pounds Mannie F Robert Height Measured 2021-12-06 09:06:00 64.00 inches Mannie F Robert Body Temperature 2021-12-06 09:06:00 98.40 degrees Mannie F Robert Heart Rate 2021-12-06 09:06:00 80.00 /min Daly en F Robert Respiratory Rate 2021-12-06 09:06:00 16.00 /min Mannie F Robert Procedures Procedure Date / Time Performed Performing Clinicia n Source URINALYSIS 2020-04-24 21:34:00 Corona, Kathryn R [facility] POCT TEST 2020-04-24 21:34:00 Kathryn Corona [facility] NOTICE OF PRIVACY PRACTICES 2020-04-24 21:18:13 Doctor Unassigned, [place] [facility] CONSENT/REFUSAL FOR DIAGNOSIS AND TREATMENT 2020-04-24 21:18:02 Doctor Unassigned, [place] [facility] Encounters Start Date/Time End Date/Time Encounter Type Admission Type Attending Page [facility] Care Department Encounter ID Source 2021-06-21 15:21:52 Emergency [facility] [id number] [facility] 2024-05-30 16:40:53 2024-05-30 16:40:53 Outpatient S[facility] [id number] Mannie Jones 2024-05-30 00:00:00 2024-05-30 00:00:00 Outpatient Visit [facility] [id number] Mannie Jones 2023-09-03 15:51:12 2023-09-03 15:51:12 Outpatient SFA SFA [...] Jones 2022-10-16 17:23:10 2022-10-16 17:23:10 Outpatient SFA [facility] [id number] Mannie Jones 2022-07-31 16:34:25 2022-07-31 16:34:25 Outpatient SFA [facility] [id number] Mannie Jones 2022-03-04 04:39:00 2022-03-04 04:39:00 Outpatient GENET LLOYD [facility] [id number] [facility] 2021-03-05 15:00:00 2021-03-05 15:00:00 Outpatient CHARISSE LEPE [facility] [id number] [facility] 2021-03-05 00:00:00 2021-03-05 00:00:00 Outpatient CHARISSE SANDHU [facility] [id number] [facility] 2021-02-07 00:00:00 2021-02-07 00:00:00 Outpatient CHARISSE SANDHU [facility] [id number] [facility] 2021-02-07 00:00:00 2021-02-07 00:00:00 Outpatient CHARISSE SANDHU [facility] [id number] [facility] 2020-10-02 16:20:00 2020-10-02 16:20:00 Outpatient CABRERA ROWE [facility] [id number] [facility] 2020-04-24 16:30:00 2020-04-24 17:27:00 Emergency Kathryn Corona [facility] [id number] [facility] 2020-04-24 16:30:00 2020-04-24 17:27:00 Emergency Kathryn Corona [facility] [id number] Results Test Description Test Time Test Comments Results Result Co mments Source T4 (THYROXINE)2023-01-03 06:59:45* Test Item Value Reference Range Interpretation Comme nts T4 (THYROXINE) (test code = 2819) 8.3 UG/DL 4.5-10.5 UNLESS OTHERW ISE INDICATED, ALL TESTING PERFORMED AT [facility] [address] [place] [address] FORMATION TESTING OPERATOR: LAUREN ROBIN M.D. [place] NUMBER [id number] [facility] [place]. [id number] COMPREHENSIVE METABOLIC [id number] 04:55:16* Test Item Value Reference Range Interpretation Comme nts GLUCOSE (test code = 2217) 95 MG/DL 70-99 BUN (test code = 220) 12 MG/DL 6-20 CREATININE (test code = 2214) 0.82 MG/DL 0.60-1.30 eGFR (2020 CKD-EPI) (test code = 72730) 94 ML/MIN/1.73 >60 CALC BUN/CREAT (test code = 2235) 15 RATIO 6-28 SODIUM (test code = 2231) 140 MEQ/L 133-146 POTASSIUM (test code = 2228) 4.3 MEQ/L 3.5-5.4 CHLORIDE (test code = 2215) 105 MEQ/L 95-107 CARBON DIOXIDE (test code = 2206) 23 MEQ/L 19-31 CALCIUM (test code = 2209) 9.1 MG/DL 8.5-10.5 PROTEIN, TOTAL (test code = 2229) 7.8 G/DL 6.1-8.3 ALBUMIN (test code = [...] as normal/abnormal. ALKALINE PHOSPHATASE (test code = 2204) 85 U/L 40-112 AST (test code = 2218) 16 U/L 9-40 ALT (test code = 2219) 11 U/L 5-40 LIPID [id number] 04:55:16* Test Item Value Reference Range Interpretation [...] SPECIMENS. FOR MOREINFORMATION, SEE CLIENT ANNOUNCEMENT AT [email or web address] RISK RATIO LDL/HDL (test code = 2238) 2.27 RATIO <3.22 HEMOGLOBIN [id number] 03:34:22* Test Item Value Reference Range Interpretation Comme nts HEMOGLOBIN A1c (test code = 74262) 5.9 % 4.2-5.6 H [employer] GUIDELINES FOR HGB A1C: [...] ETC.). CONSIDER ALTERNATE TESTING OR LABORATORY CONSULTATION. LIPID [id number] 00:00:00* Test Item Value Reference Range Interpretation Comme nts CHOLESTEROL (test code = 2210) 148 MG/DL TRIGLYCERIDES (test code = 2232) 57 MG/DL HDL CHOLESTEROL (test code = 2220) 41 MG/DL CALC LDL CHOL (test code = 2237) 93 MG/DL RISK RATIO LDL/HDL (test cod e = 2238) 2.27 RATIO Mannie Pak Florecita, THIRD [id number] 00:00:00* Test Item Value Reference Range Interpretation Comme nts TSH, THIRD GENERATION (test code = 2821) 0.794 UIU/ML Mannie Pak RobertT4 (THYROXINE)2023-01-03 00:00:00* Test Item Value Reference Range Interpretation Comme nts T4 (THYROXINE) (test code = 2819) 8.3 UG/DL Mannie JonesCOMPREHENSIVE METABOLIC [id number] 00:00:00* Test Item Value Reference Range Interpretation Comme nts GLUCOSE (test code = 2217) 95 MG/DL BUN (test code = 2208) 12 MG/DL CREATININE (test code = 2214) 0.82 MG/DL eGFR (2020 CKD-EPI) (test co de = 07405) 94 ML/MIN/1.73 CALC BUN/CREAT (test code = 2235) 15 RATIO SODIUM (test code = 2231) 140 MEQ/L POTASSIUM (test code = 2228) 4.3 MEQ/L CHLORIDE (test code = 2215) 105 MEQ/L CARBON DIOXIDE (test code = 2206) 23 MEQ/L CALCIUM (test code = 2209) 9.1 MG/DL PROTEIN, TOTAL (test code = 2229) 7.8 G/DL ALBUMIN (test code = 2201) 4.1 G/DL CALC GLOBULIN (test code = 2240) 3.7 G/DL CALC A/G RATIO (test code = 2234) 1.1 RATIO BILIRUBIN, TOTAL (test code = 2207) 0.4 MG/DL ALKALINE PHOSPHATASE (test code = 2204) 85 U/L AST (test code = 2218) 16 U/L ALT (test code = 2219) 11 U/L Mannie JonesHEMOGLOBIN [id number] 00:00:00* Test Item Value Reference Range Interpretation Comme mona HEMOGLOBIN A1c (test code = 51142) 5.9 % Mannie Miguel T4 (THYROXINE)2021-11-07 04:32:21* Test Item Value Reference Range Interpretation Comme [facility] FREE T4 (THYROXINE) (test code = 2823) 1.00 NG/DL 0.80-1.90 UNLESS OTHERWISE INDICATED, ALL TESTING [facility]FORMED [facility] [address] [place] [address] FORMATION TESTING OPERATOR: SERENE MOY M.D. CLIA NUMBER [id number] [facility] [place]. [id number] FREE T4 (THYROXINE)2021-11-07 00:00:00* Test Item Value Reference Range Interpretation Comme [facility] FREE T4 (THYROXINE) (test co de = 2823) 1.00 NG/DL Mannie Bernabe, THIRD [id number] 05:45:14* Test Item Value Reference Range Interpretation Comme nts TSH, THIRD GENERATION (test code = 2821) <0.010 UIU/ML 0.400-4.100 L UNLESS OTHERWISE INDICATED, ALL TESTING PERFORMED [facility] [address] [place] [address] FORMATION TESTING OPERATOR: SERENE MOY M.D. CLIA NUMBER [id number] [place]. [id number] 00:00:00* Test Item Value Reference Range Interpretation Comme nts TSH, THIRD GENERATION (test code = 2821) <0.010 UIU/ML Mannie JonesVAGINAL PATHOGENS DNA [id number] 08:24:47* Test Item Value Reference Range Interpretation Comme nts SUBHASH SPECIES (test code = ) TEST NOT PERFORMED NEGATIVE NO SPECIMEN RECEIVED FOR TESTING. CHARGES DELETED. G. VAGINALIS (test code = 75306) TEST NOT PERFORMED NEGATIVE NO SPECIMEN RECEIVED FOR TESTING. CHARGES DELETED. T. VAGINALIS (test code = 72250) TEST NOT PERFORMED NEGATIVE NO SPECIMEN RECEIVED FOR TESTING. CHARGES DELETED. UNLESS OTHERWISE INDICATED, ALL TESTING PERFORMED [facility] [address] [place] [address] FORMATION TESTING OPERATOR: SERENE MOY M.D. CLIA NUMBER [id number] [place]. [id number] VAGINAL PATHOGENS DNA [id number] 00:00:00* Test Item Value Reference Range Interpretation Comme nts SUBHASH SPECIES (test code = 29293) TEST NOT PERFORMED G. VAGINALIS (test code = 71725) TEST NOT PERFORMED T. VAGINALIS (test code = 18613) TEST NOT PERFORMED Mannie JonesLIPID [id number] 03:48:14* Test Item Value Reference Range Interpretation [...] SPECIMENS. FOR MOREINFORMATION, SEE CLIENT ANNOUNCEMENT AT [email or web address] RISK RATIO LDL/HDL (test code = 2237) 2.22 RATIO <3.22 COMPREHENSIVE METABOLIC [id number] 03:48:14* Test Item Value Reference Range Interpretation Comme nts GLUCOSE (test code = 2216) 82 MG/DL 70-99 BUN (test code = 2207) 14 MG/DL 6-20 CREATININE (test code = 2213) 0.67 MG/DL 0.60-1.30 eGFR (2020 CKD-EPI) (test code = ) 116 ML/MIN/1.73 >60 CALC BUN/CREAT (test code = 2234) 21 RATIO 6-28 SODIUM (test code = 2230) 140 MEQ/L 133-146 POTASSIUM (test code = 2227) 4.3 MEQ/L 3.5-5.4 CHLORIDE (test code = 2214) 106 MEQ/L 95-107 CARBON DIOXIDE (test code = 2205) 23 MEQ/L 19-31 CALCIUM (test code = 2208) 9.5 MG/DL 8.5-10.5 PROTEIN, TOTAL (test code = 2228) 8.2 G/DL 6.1-8.3 ALBUMIN (test code = 2200) 4.3 G/DL 3.5-5.2 CALC GLOBULIN (test code = 2240) 3.9 G/DL 1.9-3.7 H CALC A/G RATIO (test code = 2233) 1.1 RATIO 1.0-2.6 BILIRUBIN, TOTAL (test code = 2206) 0.2 MG/DL See_Comment [Automated me ssage] The system which generated this result transmitted reference range: <=1.2. The reference range was not used to interpret this result as normal/abnormal. ALKALINE PHOSPHATASE (test code = 2203) 140 U/L 40-112 H AST (test code = 2218) 17 U/L 9-40 ALT (test code = 2219) 14 U/L 5-40 HEPATIC FUNCTION [id number] 03:48:14* Test Item Value Reference Range Interpretation Comme nts PROTEIN, TOTAL (test code = 222) 8.2 G/DL 6.1-8.3 ALBUMIN (test code = 2200) 4.3 G/DL 3.5-5.2 BILIRUBIN, TOTAL (test code = 2206) 0.2 MG/DL See_Comment [Automated [employer]] The system which generated this result transmitted reference range: <=1.2. The reference range was not used to interpret this result as normal/abnormal. BILIRUBIN, DIRECT (test code = 2021) 0.1 MG/DL 0.0-0.3 ALKALINE PHOSPHATASE (test code = 2203) 140 U/L 40-112 H AST (test code = 2217) 17 U/L 9-40 ALT (test code = 2218) 14 U/L 5-40 HEMOGLOBIN [id number] 03:35:24* Test Item Value Reference Range Interpretation Comme nts HEMOGLOBIN A1c (test code = 20280) 5.5 % 4.2-5.6 CBC W/AUTO DIFF WITH [id number] 03:06:39* Test Item Value Reference Range Interpretation [...] = 1065) 0.0 /100 WBC'S See_Comment [Automated Install[employer]et[employer]] The system which generated this result transmitted [...] 0.00-0.10 ABS NUCLEATED RBCS (test code = 60756) 0.00 K/UL 0.00-0.11 LIPID [id number] 00:00:00* Test Item Value Reference Range Interpretation Comme nts CHOLESTEROL (test code = 2210) 146 MG/DL TRIGLYCERIDES (test code = 2232) 54 MG/DL HDL CHOLESTEROL (test code = 2220) 41 MG/DL CALC LDL CHOL (test code = 2237) 91 MG/DL RISK RATIO LDL/HDL (test cod e = 2238) 2.22 RATIO Mannie F AustinCOMPREHENSIVE METABOLIC [id number] 00:00:00* Test Item Value Reference Range Interpretation Comme nts GLUCOSE (test code = 2217) 82 MG/DL BUN (test code = 2208) 14 MG/DL CREATININE (test code = 2214) 0.67 MG/DL eGFR (2020 CKD-EPI) (test code = 67056) 116 ML/MIN/1.73 CALC BUN/CREAT (test code = 2235) 21 RATIO SODIUM (test code = 2231) 140 MEQ/L POTASSIUM (test code = 2228) 4.3 MEQ/L CHLORIDE (test code = 2215) 106 MEQ/L CARBON DIOXIDE (test code = 2206) 23 MEQ/L CALCIUM (test code = 2209) 9.5 MG/DL PROTEIN, TOTAL (test code = 2229) 8.2 G/DL ALBUMIN (test code = 2201) 4.3 G/DL CALC GLOBULIN (test code = 2240) 3.9 G/DL CALC A/G RATIO (test code = 2234) 1.1 RATIO BILIRUBIN, TOTAL (test code = 2207) 0.2 MG/DL ALKALINE PHOSPHATASE (test code = 2204) 140 U/L AST (test code = 2218) 17 U/L ALT (test code = 2219) 14 U/L Mannie JonesMARCIAL (HEPATIC) FUNCTION [id number] 00:00:00* Test Item Value Reference Range Interpretation Comme nts PROTEIN, TOTAL (test code = 2229) 8.2 G/DL ALBUMIN (test code = 2201) 4.3 G/DL BILIRUBIN, TOTAL (test code = 2207) 0.2 MG/DL BILIRUBIN, DIRECT (test code = 2021) 0.1 MG/DL ALKALINE PHOSPHATASE (test c ode = 2204) 140 U/L AST (test code = 2218) 17 U/L ALT (test code = 2219) 14 U/L Mannie JonesC W/AUTO [id number] 00:00:00* Test Item Value Reference Range Interpretation Comme [...] NUCLEATED RBCS (test code = 1065) 0.0 /100WBC'S PLATELET COUNT (test code = 1015) 243 K/UL ABSOLUTE NEUTROPHILS (test c ode = 1066) 3.84 K/UL ABSOLUTE LYMPHOCYTES (test c ode = 1067) 2.93 K/UL ABSOLUTE MONOCYTES (test cod e = 1068) 0.47 K/UL ABSOLUTE EOSINOPHILS (test c ode = 1040) 0.18 K/UL ABSOLUTE BASOPHILS (test cod e = 1069) 0.05 K/UL ABS IMMATURE GRANULOCYTES (t est code = 1020) 0.03 K/UL ABS NUCLEATED RBCS (test cod e = 62437) 0.00 K/UL Mannie JonesHEMOGLOBIN [id number] 00:00:00* Test Item Value Reference Range Interpretation Comme nts HEMOGLOBIN A1c (test code = 78514) 5.5 % Mannie JonesPAP TEST, THINPREP, [id number] 00:00:00* Test Item Value Reference Range Interpretation Comme nts SOURCE: (test code = 8001) Cervical/Endocervical SLIDES: (test code = 8011) 1 LMP: (test code = 8021) 2015 SPECIMEN ADEQUACY: (test code = 58376) (NOTE) INTERPRETATION: (test code = 58647) NILM/NO EPITH. ABNORMALITY;SEE BELOW INTERNAL SECURITY MANAGER: (test code = 8101) JONAH RESENDIZ,CT(ASCP) QC TECHNOLOGIST: (test code = 8111) Perla Hernandez,SCT(ASCP)CT(IA C) LOCATION: (test code = 15601) (NOTE) CPT: (test code = 8140) (NOTE) Mannie Pak AustinVAGINAL PATHOGENS DNA [id number] 00:00:00* Test Item Value Reference Range Interpretation Comme nts SUBHASH SPECIES (test code = 62568) NEGATIVE G. VAGINALIS (test code = 19159) POSITIVE T. VAGINALIS (test code = 43416) NEGATIVE Mannie Pak AustinHPV HIGH RISK WITH GENOTYPE, [id number] 00:00:00* Test Item Value Reference Range Interpretation Comme nts HPV HIGH RISK INTERP (test c ode = 97630) NEGATIVE HPV 16 (test code = 68559) NEGATIVE HPV 18 (test code = 42931) NEGATIVE HPV, HR, OTHER GENOTYPES (te st code = 65938) NEGATIVE Mannie Pak AustinNOTE: [ADDED]2021-02-05 00:00:00* Test Item Value Reference Range Interpretation Comme nts NOTE: (test code = 998) (NOTE) Mannie Pak AustinFREE T4 (THYROXINE) [ADDED]2021-02-05 00:00:00* Test Item Value Reference Range Interpretation Comme nts FREE T4 (THYROXINE) (test co de = 5895) 1.59 NG/DL Mannie JonesFREE T3 [ADDED]2021-02-05 00:00:00* Test Item Value Reference Range Interpretation Comme nts FREE T3 (test code = 4273) 4.3 PG/ML Mannie JonesCOMPREHENSIVE METABOLIC [id number] 00:00:00* Test Item Value Reference Range Interpretation Comme nts GLUCOSE (test code = 2217) 91 MG/DL BUN (test code = 2208) 14 MG/DL CREATININE (test code = 2214) 0.73 MG/DL eGFR AMER. (test cod e = 66518) 123 ML/MIN/1.73 eGFR NON- AMER. (test code = 88756) 106 ML/MIN/1.73 CALC BUN/CREAT (test code = 2235) 19 RATIO SODIUM (test code = 2231) 140 MEQ/L POTASSIUM (test code = 2228) 4.2 MEQ/L CHLORIDE (test code = 2215) 106 MEQ/L CARBON DIOXIDE (test code = 2206) 24 MEQ/L CALCIUM (test code = 2209) 9.8 MG/DL PROTEIN, TOTAL (test code = 2229) 8.0 G/DL ALBUMIN (test code = 2201) 4.2 G/DL CALC GLOBULIN (test code = 2240) 3.8 G/DL CALC A/G RATIO (test code = 2234) 1.1 RATIO BILIRUBIN, TOTAL (test code = 2207) 0.5 MG/DL ALKALINE PHOSPHATASE (test code = 2204) 75 U/L AST (test code = 2218) 16 U/L ALT (test code = 2219) 10 U/L Mannie [id number] 00:00:00* Test Item Value Reference Range Interpretation Comme nts TSH, THIRD GENERATION (test code = 2821) 0.013 UIU/ML Mannie JonesCBC W/AUTO [id number] 00:00:00* Test Item Value Reference Range Interpretation Comme nts WBC (test code = 1001) 4.7 K/UL [...] = 1013) 0.6 % IMMATURE GRANULOCYTES (test code = 1036) 0.4 % NUCLEATED RBCS (test code = 1065) 0.0 /100WBC'S PLATELET COUNT (test code = 1015) 219 K/UL ABSOLUTE NEUTROPHILS (test c ode = 1066) 2.56 K/UL ABSOLUTE LYMPHOCYTES (test c ode = 1067) 1.53 K/UL ABSOLUTE MONOCYTES (test cod e = 1068) 0.34 K/UL ABSOLUTE EOSINOPHILS (test c ode = 1040) 0.18 K/UL ABSOLUTE BASOPHILS (test cod e = 1069) 0.03 K/UL ABS IMMATURE GRANULOCYTES (t est code = 1020) 0.02 K/UL ABS NUCLEATED RBCS (test cod e = 78956) 0.00 K/UL Mannie Pak AustinLIPID [id number] 00:00:00* Test Item Value Reference Range Interpretation Comme nts CHOLESTEROL (test code = 2210) 141 MG/DL TRIGLYCERIDES (test code = 2232) 50 MG/DL HDL CHOLESTEROL (test code = 2220) 39 MG/DL CALC LDL CHOL (test code = 2237) 89 MG/DL RISK RATIO LDL/HDL (test cod e = 2238) 2.28 RATIO Mannie JonesSARS-CoV-2 (COVID-19) by RT-PCR (HIGH RISK)2020-09-25 00:00:00* Test Item Value Reference Range Interpretation Comme nts SARS-CoV-2 INTERPRETATION (t est code = 10939) NEGATIVE SOURCE (test code = 83412) NOT SPECIFIED Mannie Pak [id number] 21:59:00* Test Item Value Reference Range Interpretation Comme nts APPEARANCE (test code = 2453632544) Hazy Clear A COLOR (test code = 0499567120) Yellow Yellow PH (test code = 9576033846) 4.8-8.0 SP GRAVITY (test code = 1884828710) 1.003-1.030 GLU U QUAL (test code = 8961475928) Normal Normal BLOOD (test code = 4053491994) 2+ Negative A KETONES (test code = 9013422670) Negative Negative PROTEIN (test code = 2887-8) Negative Negative UROBILIN (test code = 9720604583) 4.0 mg/dL Normal A BILIRUBIN (test code = 3483683410) Negative Negative NITRITE (test code = 1573302249) Negative Negative LEUK KAIN (test code = 2244087066) 75/uL Negative A RBC/HPF (test code = 7633498172) See_Comment H [Automated messa ge] The system which generated this result transmitted reference range: 0 - 3 HPF. The reference range was not used to interpret this result as normal/abnormal. WBC/HPF (test code = 8100014639) See_Comment H [Automated messa ge] The system which generated this result transmitted reference range: 0 - 5 HPF. The reference range was not used to interpret this result as normal/abnormal. BACTERIA (test code = 2764305118) Many Negative A MUCOUS (test code = 6826274630) Marked Negative LPF A SQ EPITH (test code = 6954518568) HPF Lab Interpretation (test code = 65757-8) [facility]normal [facility] [id number] 21:34:00* Test Item Value Reference Range Interpretation Comme nts POCT PREG (test code = 1605) Negative On board controls acceptable with C Line (test code = 3574) present POCT PREG LOT # (test code = 3575) [id number] POCT PREG TEST DATE ( test code = 3576) 03/23/2021 Lab Interpretation (test cod e = 01015-2) Normal [facility]PA [facility], THINPREP, [id number] 00:00:00 * Test Item Value Reference Range Interpretation Comme nts SOURCE: (test code = 8001) Cervical/Endo cervi bruce SLIDES: (test code = 8011) 1 LMP: (test code = 8021) SPECIMEN ADEQUACY: (test code = 39201) (NOTE) INTERPRETATION: (test code = 48906) LSIL/EPITH. ABNORMALITY; SEE BELOW INTERNAL SECURITY MANAGER: (test code = 8101) TABATHA Sauer(ASCP) PATHOLOGIST INTERPRETATION BY: (test code = 8122) Anca Parnell LOCATION: (test code = 36105) (NOTE) CPT: (test code = 8140) (NOTE) Mannie JonesHPV HIGH RISK WITH GENOTYPE, [id number] 00:00:00* Test Item Value Reference Range Interpretation Comme nts HPV HIGH RISK INTERP (test c ode = 94665) NEGATIVE HPV 16 (test code = 22896) NEGATIVE HPV 18 (test code = 82904) NEGATIVE HPV, HR, OTHER GENOTYPES (te st code = 66362) NEGATIVE Mannie Jones
[2024-09-27 19:13] LABS: Specific Gravity 1.027 (1.005-1.030)
[2024-09-27 19:29] LABS: Specific Gravity 1.027 (1.005-1.030); Urine Bacteria None Seen /HPF (<20); Urine Bilirubin NEGATIVE (Negative); Urine Blood 2+ (Negative); Urine Clarity Extremely Turbid (Clear); Urine Color Yellow (Yellow); Urine Crystals Unidentified Few /HPF (None Seen); Urine Culture Reflex Order REFLEXED; Urine Glucose NEGATIVE (Negative); Urine Ketones NEGATIVE (Negative); Urine Microscopic Reflex YN ORDER UMIC; Urine Mucus Slight /HPF (None Seen); Urine Nitrite NEGATIVE (Negative); Urine Protein TRACE (Negative); Urine RBC >50 /HPF (None Seen); Urine Urobilinogen 3+ (Normal); Urine WBC 20-50 /HPF (<5); Urine WBC Clump Occasional /HPF (None Seen); Urine Yeast (Budding) Trace /HPF (None Seen); Urine pH 6.5 (5.0-7.0)
[2024-09-27] MEDS ORDERED: HYDROCODONE/APAP 7.5/325 MG TAB ONE (19:38)
--- NOTE | 2024-09-27 20:55 | RAD REPORT ---
EXAMINATION: CT ABDOMEN AND PELVIS stone protocol WITHOUT CONTRAST CLINICAL INDICATION: Female, 39 years old.FLANK PAIN TECHNIQUE: CT abdomen and pelvis stone protocol was performed, without IV contrast, as per department protocol. Axial, sagittal and coronal reconstructions were obtained. One or more of the following dose reduction techniques were used: Automated exposure control, adjustment of the mA and/or kV accor ding to the patient size, and/or iterative reconstruction. Unless otherwise specified, incidental findings do not require dedicated imaging follow-up. [id number]. IV CONTRAST: Not administered. COMPARISON: 11/30/2023 FINDINGS: The lack of intravenous contrast limits the sensitivity of this exam for evaluation of solid visceral organs, vascular structures, and retroperitoneum. LOWER CHEST: No acute process identified.No significant pericardial effusion. UPPER GI: No significant abnormality. LIVER: No significant focal abnormality. GALLBLADDER/BILE DUCTS: No biliary ductal dilatation.? PANCREAS: No mass, ductal dilation, or [place]-pancreatic fluid. SPLEEN: Unremarkable. ADRENALS: No adrenal masses. KIDNEYS AND URETERS: No hydronephrosis.Within the limitations of a noncontrast CT, no suspicious kael l lesions.No urinary tract calculi. ABDOMINAL AORTA AND OTHER VESSELS: Normal caliber aorta and IVC. PERITONEUM: No abnormal free fluid. No free air. LYMPH NODES: No pathologic lymphadenopathy. ABDOMINAL WALL: Small fat-containing umbilical hernia SMALL BOWEL/COLON: Small bowel has normal course and caliber. No colonic wall thickening or pericolon ic inflammatory changes.Normal appendix. URINARY BLADDER: Underdistended but grossly unremarkable. REPRODUCTIVE ORGANS: No pathologic process. MUSCULOSKELETAL: ADDITIONAL FINDINGS: None. IMPRESSION: No acute or significant abnormalities in the abdomen or pelvis, with evaluation limited by lack of IV contrast. No urinary tract calculi. Normal appendix.
--- NOTE | 2024-09-27 21:33 | ER ---
Nurse's Notes [facility] Name: Aneta Wang Age: 39 yrs Sex: Female : 1985 Arrival Date: 09/27/2024 Time: 18:01 Bed 8 Private MD: Diagnosis: UTI/ Urinary tract infection, site not specified Presentation: 09/27 18:55 Chief complaint: Patient states: burning when urination, lower abd tenderness, feels ko1 like a UTI. Coronavirus screen: At this time, the client does not indicate any symptoms associated with coronavirus-19. Ebola Screen: No symptoms or risks identified at this time. Initial Sepsis Screen: Does the patient meet any 2 criteria? No. Patient's initial sepsis screen is negative. Does the patient have a suspected source of infection? No. Patient's initial sepsis screen is negative. Risk Assessment: Do you want to hurt yourself or someone else? Patient reports no desire to harm self or others. Onset of symptoms was September 27, 2024. 18:55 Method Of Arrival: Ambulatory ko1 18:55 Acuity: TAMMY 3 ko1 Triage Assessment: 18:58 General: Appears in no apparent distress. Behavior is calm, cooperative, appropriate ko1 for age. Pain: Complains of pain in suprapubic area, posterior aspect of left lateral abdomen, right lower quadrant and left lower quadrant. GI: Reports lower abdominal pain. 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 - Infectious Disease History:: Denies. - Social history:: Smoking status: Patient denies any tobacco usage or history of. Screenin:33 [facility] ED Fall Risk Assessment (Adult) History of falling in the last 3 months, bm8 including since admission No falls in past 3 months (0 pts) Confusion or Disorientation No (0 pts) Intoxicated or Sedated No (0 pts) Impaired Gait No (0 pts) Mobility Assist Device Used No (0 pt) Altered Elimination No (0 pt) Score/Fall Risk Level 0 - 2 = Low Risk Oriented to surroundings, Maintained a safe environment, Educated pt \T\ family on fall prevention, incl call for assistance when getting out of bed, Assessed \T\ reinforced patient's understanding of fall precautions, Hourly rounding (assess needs \T\ fall precautionary measures) done, Used ambulatory aids as needed (educated on \T\ assisted with), Used gait belt as appropriate. Abuse screen: Denies threats or abuse. Nutritional screening: No deficits noted. Tuberculosis screening: No symptoms or risk factors identified. Assessment: 19:33 General: Appears in no apparent distress. uncomfortable, Behavior is calm, cooperative, bm8 appropriate for age. Pain: Complains of pain in left lower quadrant and right lower quadrant and posterior aspect of left lateral abdomen and suprapubic area Pain currently is 8 out of 10 on a pain scale. Quality of pain is described as aching, crampy. Neuro: No deficits noted. Level of Consciousness is awake, alert, obeys commands, Oriented to person, place, time, situation, Appropriate for age. Cardiovascular: Denies chest pain, Capillary refill < 3 seconds in bilateral fingers Patient's skin is warm and dry. Respiratory: Airway is patent Respiratory effort is even, unlabored, Respiratory pattern is regular, symmetrical, Breath sounds are clear bilaterally. : Reports burning with urination, cramping, pain. 21:45 Reassessment: Patient appears in no apparent distress at this time. Patient and/or bm8 family updated on plan of care and expected duration. Pain level reassessed. Patient is alert, oriented x 3, equal unlabored respirations, skin warm/dry/pink. Patient denies pain at this time. Patient states feeling better. Patient states symptoms have improved. 21:53 GI: Bowel sounds present X 4 quads. Abdomen is tender to palpation in suprapubic area, bm8 right lower quadrant and left lower quadrant. Vital Signs: 18:55 BP 113 / 91; Pulse 87; Resp 15; Temp 98; Pulse Ox 100% ; ko1 19:33 BP 119 / 81; Pulse 83; Resp 18; Temp 98; Pulse Ox 99% ; Pain 8/10; bm8 21:45 BP 112 / 75; Pulse 81; Resp 19; Temp 98; Pulse Ox 99% ; Pain 3/10; bm8 19:33 Pain Scale: Adult bm8 21:45 Pain Scale: Adult bm8 Francie Coma Score: 19:33 Eye Response: spontaneous(4). Motor Response: obeys commands(6). Verbal Response: bm8 oriented(5). Total: 15. 21:45 Eye Response: spontaneous(4). Motor Response: obeys commands(6). Verbal Response: bm8 oriented(5). Total: 15. ED Course: 18:51 Patient arrived in ED. al6 18:53 Nevaeh Cuenca FNP-C is PSYCHIATRICP. kb 18:53 Abad Rizzo DO is Attending Physician. kb 18:58 Triage completed. ko1 18:58 Arm band placed on right wrist. Patient placed in waiting room, Patient notified of ko1 wait time. 19:04 Test, Urine Sent. ko1 19:04 Urinalysis w/ reflexes Sent. ko1 19:05 Urine collected: clean catch specimen, danni colored. ko1 19:33 Dom Celaya, RN is Primary Nurse. bm8 19:33 Patient has correct armband on for positive identification. Call light in reach. Side bm8 rails up X 1. Client placed on continuous cardiac and pulse oximetry monitoring. NIBP monitoring applied. Pulse ox on. NIBP on. Door closed. Noise minimized. Warm blanket given. Pillow given. Verbal reassurance given. Head of bed elevated. 19:33 No provider procedures requiring assistance completed. Patient maintains SpO2 bm8 saturation greater than 95% on room air. 20:43 CT Stone Protocol In Process Unspecified. EDMS 21:45 Provided Education on: post er care. bm8 21:45 Patient did not have IV access during this emergency room visit. bm8 Administered Medications: 19:46 Drug: Hydrocodone-Acetaminophen PO (7.5 mg-325 mg) 1 tabs PO once Route: PO; bm8 21:41 Follow up: Response: No adverse reaction bm8 21:45 Drug: Macrobid PO 100 mg PO once; administer with food Route: PO; bm8 21:45 Follow up: Response: Medication Administered at Departure bm8 Medication: 19:33 VIS not applicable for this client. bm8 Outcome: 21:32 Discharge ordered by . kb 21:45 Discharged to home ambulatory, bm8 21:45 Condition: stable 21:45 Discharge instructions given to patient, Instructed on discharge instructions, follow up and referral plans. no drinking with medication, no driving heavy equipment, medication usage, safety practices, Demonstrated understanding of instructions, follow-up care, medications, Prescriptions given X 1, 21:52 Patient left the ED. bm8 Signatures: Dispatcher [employer] EDNevaeh Armas, JOJO BILL-Anais Iyer, RN RN ko1 Dom Celaya RN RN bm8 Evelin Colón6
--- NOTE | 2024-09-27 21:33 | EDPHYS ---
Physician Documentation [facility] Name: Aneta Wang Age: 39 yrs Sex: Female : 1985 Arrival Date: 09/27/2024 Time: 18:01 Bed 8 Private MD: ED Physician Abad Rizzo HPI: 09/27 23:20 This 39 yrs old Black Female presents to ER via Ambulatory with complaints of Abdominal kb Pain, maybe uti. 23:20 Pt is a 39 year old female who presents for decreased urination, painful urination, kb lower abd pain and left flank pain that started this morning. Denies n/v, fever. States this feels exactly the same as previous UTIs. Prefers not to do blood work or CT until after urinalysis. . 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 - Infectious Disease History:: Denies. - Social history:: Smoking status: Patient denies any tobacco usage or history of. ROS: 23:22 Constitutional: As per HPI kb Exam: 23:22 Constitutional: This is a well developed, well nourished patient who is awake, alert, kb and in no acute distress. Head/Face: Normocephalic, atraumatic. ENT: Moist Mucous membranes Cardiovascular: Regular rate Respiratory: Respirations even and unlabored. No increased work of breathing. Talking in full sentences Skin: Warm, dry with normal turgor. Normal color. MS/ Extremity: Pulses equal, no cyanosis. Neurovascular intact. Full, normal range of motion. Neuro: Awake and alert, GCS 15, oriented to person, place, time, and situation. 23:22 Abdomen/GI: Inspection: abdomen appears normal, Palpation: soft, in all quadrants, mild abdominal tenderness, in the suprapubic area, 23:22 Back: CVA tenderness, that is moderate, is noted on the left, Vital Signs: 18:55 BP 113 / 91; Pulse 87; Resp 15; Temp 98; Pulse Ox 100% ; ko1 19:33 BP 119 / 81; Pulse 83; Resp 18; Temp 98; Pulse Ox 99% ; Pain 8/10; bm8 21:45 BP 112 / 75; Pulse 81; Resp 19; Temp 98; Pulse Ox 99% ; Pain 3/10; bm8 19:33 Pain Scale: Adult bm8 21:45 Pain Scale: Adult bm8 [place] Coma Score: 19:33 Eye Response: spontaneous(4). Motor Response: obeys commands(6). Verbal Response: bm8 oriented(5). Total: 15. 21:45 Eye Response: spontaneous(4). Motor Response: obeys commands(6). Verbal Response: bm8 oriented(5). Total: 15. MDM: 18:53 Medical Screening Exam initiated kb 23:22 Differential diagnosis: Ureterolithiasis, urinary tract infection. Data reviewed: vital kb signs, nurses notes. Counseling: I had a detailed discussion with the patient and/or guardian regarding the historical points, exam findings, and any diagnostic results supporting the discharge/admit diagnosis, lab results, radiology results, the need for outpatient follow up, a family practitioner, to return to the emergency department if symptoms worsen or persist or if there are any questions or concerns that arise at home. ED course: Pt decided she did want to do a ct due to history of kidney stones. Ct done and wnl. 09/27 18:57 Order name: Test, Urine; Complete Time: 19:26 kb 09/27 18:57 Order name: Urinalysis w/ reflexes; Complete Time: 20:06 kb 09/27 19:44 Order name: Urine Culture EDOR 09/27 19:25 Order name: CT Stone Protocol; Complete Time: 21:09 kb Administered Medications: 19:46 Drug: Hydrocodone-Acetaminophen PO (7.5 mg-325 mg) 1 tabs PO once Route: PO; bm8 21:41 Follow up: Response: No adverse reaction bm8 21:45 Drug: Macrobid PO 100 mg PO once; administer with food Route: PO; bm8 21:45 Follow up: Response: Medication Administered at Departure bm8 Disposition Summary: 09/27/24 21:32 Discharge Ordered Notes: Location: Home kb Condition: Stable kb Diagnosis - UTI/ Urinary tract infection, site not specified kb Followup: kb - With: Emergency Department - When: As needed - Reason: Worsening of condition Followup: kb - With: Private Physician - When: 2 - 3 days - Reason: Recheck today's complaints, Continuance of care, Re-evaluation by your physician Discharge Instructions: - Discharge Summary Sheet kb - Urinary Tract Infection, Adult, [id number] kb Forms: - Medication Reconciliation Form kb - Antibiotic Education kb - Prescription Opioid Use kb - Patient Portal Instructions kb - Leadership Thank You Letter kb - Work release form bm8 Prescriptions: - Macrobid 100 mg Oral Capsule - take 1 capsule ORAL route every 12 hours for 10 days; 20 capsule; Refills: 0, kb Product Selection Permitted Addendum: 09/29/2024 15:28 I was immediately available on-site in the Emergency Department for consultation in the m s3 care of the patient. Signatures: Dispatcher [employer] EDNevaeh Armas, FLY-Miley BILL-Abad Mccann DO DO ms3 Anais Torres, RN RN ko1 Dom Celaya RN RN bm8 Corrections: (The following items were deleted from the chart) 09/27 18:57 18:57 Test, Urine+UC.LAB.BRZ ordered. EDMS EDMS 18:57 18:57 Urinalysis+U.LAB.BRZ ordered. EDMS EDMS
[2024-09-27] MEDS ORDERED: NITROFURAN MACRO 100 MG CAP PO ONE (21:43)
[2024-09-27 21:59] VITALS: TEMP 98
[2024-09-27 22:00] VITALS: O2SAT 99
[2024-09-27 22:01] VITALS: BP 112/75
== END 2024-09-27 21:52 | disposition home or self-care (01) ==
LOC: ER 18:01
DX: N39.0 Urinary tract infection, site not specified (principal)
CPT/HCPCS: 74176; 76377; 81001; 81025; 87086; 87088; 99284